=== PATIENT | male | born 1985 | race Caucasian/White ===

== ENCOUNTER → 2022-09-14 06:32 | Outpatient (CLI) | payer BC, OTHER, SELFPAY ==
--- NOTE | 2022-09-14 06:36 | DI.US.S_ITS ---
PROCEDURE: US ABDOMEN LIMITED INDICATIONS: ABNORMAL LIVER FUNCTION TESTS;POLYP OF GALLBLADDER TECHNIQUE: Real-time scanning was performed of the abdominal and retroperitoneal organs, with image documentation. COMPARISON: 02/06/2021. FINDINGS: Liver: Liver is normal in size and homogeneous in echotexture. Gallbladder: 6 x 8 x 4 mm polyp is noted within non dependent portion of gallbladder lumen. There is no gallbladder wall thickening or pericholecystic fluid. No sonographic Simon sign. Biliary ducts: Intrahepatic bile ducts are non-dilated. Extrahepatic bile duct caliber measures 6.0 mm. Normal is 6-7 mm or less in diameter, or 10 mm or less post-cholecystectomy. Pancreas: Visualized portions of the pancreas are sonographically normal. Miscellaneous: No free abdominal fluid. IMPRESSION: Subcentimeter polyp seen in non dependent portion of gallbladder wall unchanged from previous study. No sonographic evidence of acute cholecystitis. No biliary ductal dilatation. Normal appearing liver and spleen. Dictated by: Yobany Maloney M.D. on 09/14/2022 at 8:24 Approved by: Yobany Maloney M.D. on 09/14/2022 at 8:25
== END ==
PROVIDERS: Referring Provider Physician Assistant; Visit Provider Physician Assistant
DX: R79.89 Other specified abnormal findings of blood chemistry (principal); K82.4 Cholesterolosis of gallbladder
CPT/HCPCS: 76705

== ENCOUNTER → 2023-01-13 13:05 | Outpatient (CLI) | payer OTHER, MEDICAID, SELFPAY ==
--- NOTE | 2023-01-13 | DI.RAD.S_ITS ---
PROCEDURE: XR THORACIC SPINE 3V INDICATIONS: MID BACK STRAIN TECHNIQUE: 3 views of the thoracic spine were acquired. COMPARISON: None. FINDINGS: Bones: No fractures or dislocations. No suspicious bony lesions. 12 pairs of ribs are noted, and appear intact where visualized. There is mild intervertebral disc space narrowing and osteophytosis throughout the thoracic spine. Soft tissues: No paravertebral stripe thickening. IMPRESSION: No acute radiographic findings. Mild degenerative change. Dictated by: Elenita Wheat M.D. on 01/13/2023 at 16:46 Approved by: Elenita Wheat M.D. on 01/13/2023 at 16:46
--- NOTE | 2023-01-13 13:09 | DI.RAD.S_ITS ---
PROCEDURE: XR LUMBAR SPINE 2-3V INDICATIONS: STRAIN OF LUMBAR REGION TECHNIQUE: 3 views of the lumbar spine were acquired. COMPARISON: None. FINDINGS: Bones: 5 [id number] vertebrae are present. There is normal bony alignment. No vertebral body compression fractures. No suspicious bony lesions. Mild degenerative changes are present at L5-S1 including intervertebral disc space narrowing and endplate sclerosis. Soft tissues: Overlying bowel gas pattern is normal. No suspicious soft tissue calcifications. IMPRESSION: Mild degenerative change. No compression deformities. Dictated by: Elenita Wheat M.D. on 01/13/2023 at 16:46 Approved by: Elenita Wheat M.D. on 01/13/2023 at 16:47
== END ==
PROVIDERS: Referring Provider Registered Nurse; Visit Provider Registered Nurse
DX: S39.012A Strain of muscle, fascia and tendon of lower back, initial encounter (principal); M47.814 Spondylosis without myelopathy or radiculopathy, thoracic region; M47.816 Spondylosis without myelopathy or radiculopathy, lumbar region; X58.XXXA Exposure to other specified factors, initial encounter
CPT/HCPCS: 72072; 72100

== ENCOUNTER 2024-04-02 17:48 | Emergency (ER) | payer OTHER, SELFPAY ==
[2024-04-02 17:53] VITALS: BP 155/101; PULSE 99; RESP 16; TEMP 36.8; O2SAT 97; BMI 31.4
--- NOTE | 2024-04-02 17:56 | DI.RAD.S_ITS ---
PROCEDURE: XR HAND RT MIN 3V INDICATIONS: smashed hand with wrench, swelling, pain TECHNIQUE: 3 views of the hand(s) acquired. COMPARISON: None. FINDINGS: Bones: No fractures or dislocations. Carpal bones are normally aligned. No suspicious bony lesions. Soft tissues: No suspicious soft tissue calcifications. IMPRESSION: No visualized acute fracture or dislocation. However, if clinical concern and/or pain persist, short interval imaging followup in 7-10 days is recommended, as occult injury cannot be definitively excluded. Dictated by: Marielena Florez M.D. on 04/02/2024 at 18:41 Approved by: Marielena Florez M.D. on 04/02/2024 at 18:41
--- NOTE | 2024-04-02 18:33 | ED.UPPEXIN ---
HPI - Extremity Injury (Upper) <Audelia Orellana PA-C - Last Filed: 04/02/24 19:03> General Chief Complaint: Extremity Injury, Upper Stated Complaint: Right hand Injury Time Seen by Provider: 04/02/24 18:01 Source: patient Mode of arrival: Ambulatory History of Present Illness HPI narrative: 38-year-old male presents to the ED status post a right hand injury sustained at work earlier today. Patient states that he was working with a wrench, trying to loosen a bolt when the wrench slipped out of his hand and hit his right hand. Patient complains of pain, swelling on the dorsal aspect of the right hand. Patient states he is ambidextrous. Tetanus is up-to-date. Related Data Allergies Allergy/AdvReac Type Severity Reaction Status Date / Time PENICILLIN AdvReac Unknown Hives Uncoded 04/02/24 17:53 Review of Systems <Audelia Orellana PA-C - Last Filed: 04/02/24 19:03> Constitutional Constitutional: Denies chills, Denies fatigue, Denies fever(s), Denies frequent falls, Denies lethargy and Denies weakness Eyes Eyes: Denies change in vision, Denies eye discharge, Denies irritation and Denies loss of vision ENT Ears, Nose, Mouth, and Throat: Denies change in voice, Denies dizziness, Denies neck pain, Denies sore throat and Denies throat swelling Cardiovascular Cardiovascular: Denies chest pain, Denies irregular heart rhythm, Denies lightheadedness, Denies palpitations, Denies dyspnea, Denies dyspnea on exertion and Denies orthopnea Respiratory Respiratory: Denies cough, Denies dyspnea, Denies dyspnea on exertion and Denies wheezing Gastrointestinal Gastrointestinal: Denies abdominal pain, Denies change in bowel habits, Denies diarrhea, Denies nausea and Denies vomiting Musculoskeletal Musculoskeletal: Denies neck pain and Denies numbness Comments: Right hand injury, pain, swelling Integumentary/Breasts Skin/Breast: Denies pruritus, Denies erythema, Denies rash and Denies wounds Neurologic Neurologic: Denies behavioral changes, Denies confusion, Denies dizziness, Denies frequent falls, Denies loss of vision, Denies numbness and Denies weakness Psychiatric Psychiatric: Denies anxiety, Denies behavioral changes, Denies confusion, Denies depression, Denies homicidal ideation and Denies suicidal ideation Endocrine Endocrine: Denies fatigue, Denies flushing and Denies palpitations Hematologic/Lymphatic Hematologic/Lymphatic: Denies easy bruising Allergic/Immunologic Allergic/Immunologic: Denies urticaria, Denies throat swelling and Denies wheezing Patient History <Audelia Orellana PA-C - Last Filed: 04/02/24 19:03> Social History Smoking Status: Never smoker Smoking Status: Never smoker Substance Use Type: does not use Exam <Audelia Orellana PA-C - Last Filed: 04/02/24 19:03> Narrative Exam Narrative: Const General:?cooperative, healthy appearing and comfortable HENMT Head:?normal to inspection Ears:?hearing grossly normal bilaterally Nose:?external nose normal Face and sinus:?normal facial exam and sinuses nontender Mouth:?oral mucosae normal Throat:?posterior oropharynx normal Eyes General:?appearance normal, both eyes and all related structures Neck Neck:?normal visual inspection and no lymphadenopathy noted Resp Effort & Inspection:?normal respiratory effort Auscultation:?clear to auscultation bilaterally Cardio Rate:?regular rate Rhythm:?regular rhythm Musculoskeletal Dorsal aspect of right hand has a small abrasion, swelling and tenderness to touch. There is full range of motion. Range of motion is limited by pain. Neurovascularly intact. Neuro General:?patient alert, patient awake and patient oriented x3 Initial Vital Signs Initial Vital Signs: Vital Signs Temperature 98.2 F 04/02/24 17:53 Pulse Rate 99 H 04/02/24 17:53 Respiratory Rate 16 04/02/24 17:53 Blood Pressure 155/101 H 04/02/24 17:53 Pulse Oximetry 97 04/02/24 17:53 Oxygen Delivery Method Room Air 04/02/24 17:53 <Fidelina Fitzpatrick MD - Last Filed: 04/03/24 16:09> Initial Vital Signs Initial Vital Signs: Vital Signs Temperature 98.2 F 04/02/24 17:53 Pulse Rate 99 H 04/02/24 17:53 Respiratory Rate 16 04/02/24 17:53 Blood Pressure 155/101 H 04/02/24 17:53 Pulse Oximetry 97 04/02/24 17:53 Oxygen Delivery Method Room Air 04/02/24 17:53 Course <Audelia Orellana PA-C - Last Filed: 04/02/24 19:03> Orders Ordered: ED Orders 04/02/24 17:56 XR hand RT min 3V Stat Vital Signs Vital signs: Vital Signs - 8 hr 04/02/24 17:53 Temperature 98.2 F Pulse Rate 99 H Respiratory Rate 16 Blood Pressure 155/101 H Pulse Oximetry 97 Oxygen Delivery Method Room Air <Fidelina Fitzpatrick MD - Last Filed: 04/03/24 16:09> Orders Ordered: ED Orders 04/02/24 17:56 XR hand RT min 3V Stat Vital Signs Vital signs: Vital Signs - 8 hr 04/02/24 17:53 Temperature 98.2 F Pulse Rate 99 H Respiratory Rate 16 Blood Pressure 155/101 H Pulse Oximetry 97 Oxygen Delivery Method Room Air MDM - Extremity Injury (Upper) <Audelia Orellana PA-C - Last Filed: 04/02/24 19:03> MDM Narrative Medical decision making narrative: 38-year-old male presents to the ED status post a right hand injury sustained at work earlier today. Concern for fracture/dislocation versus musculoskeletal sprain/strain versus other. Patient already took 800 mg of ibuprofen prior to coming into the ED. will obtain x-rays. Will reassess. X-rays without acute findings. Patient's symptoms likely due to a contusion/musculoskeletal sprain/strain. Recommend ibuprofen, Tylenol, Feliciano wrap. Recommend follow-up with PCP. ED return precautions discussed with patient. Patient verbalized understanding. Medical records reviewed: Yes Discharge Plan Departure Patient Disposition: Home Clinical Impression: Hand injury Qualifiers: Encounter type: initial encounter Laterality: right Qualified Code(s): S69.91XA - Unspecified injury of right wrist, hand and finger(s), initial encounter Instructions: DI for Hand Injury Activity Restrictions/Additional Instructions: You were evaluated in the ED today for a hand injury. Your x-ray did not show any fractures or dislocations. Your symptoms are likely due to a contusion or musculoskeletal sprain/strain from the injury. You may continue to take 800 mg of ibuprofen and 1000 mg of Tylenol every 8 hours for pain. You may also use an Feliciano wrap to bind the hand for comfort. Please follow-up with your PCP as soon as possible. Return to the ED if you have worsening symptoms, numbness, tingling, weakness. Stand Alone Forms: Patient Portal/API ED Sign-out <Fidelina Fitzpatrick MD - Last Filed: 04/03/24 16:09> Cosign ED Attending Cosignature Attestation: I was immediately available in the department for consultation throughout this patient's visit. Fidelina Fitzpatrick MD
[2024-04-02 19:14] VITALS: BP 154/98; PULSE 95; RESP 16; O2SAT 98
== END 2024-04-02 19:11 | disposition home or self-care (01) ==
PROVIDERS: Emergency Provider Student in an Organized Health Care Education/Training Program
DX: S60.511A Abrasion of right hand, initial encounter (principal); W20.8XXA Other cause of strike by thrown, projected or falling object, initial encounter; Y99.0 Civilian activity done for income or pay
CPT/HCPCS: 73130; 99281; 99282

== ENCOUNTER → 2024-11-26 15:28 | Outpatient (CLI) | payer OTHER, SELFPAY ==
--- NOTE | 2024-11-26 15:32 | DI.RAD.S_ITS ---
PROCEDURE: XR ANKLE LT MIN 3V INDICATIONS: ANKLE PAIN TECHNIQUE: 3 views of the ankle were acquired. COMPARISON: None. FINDINGS: Bones: There are no osseous abnormalities. Tibiotalar and talocalcaneal joints: Normal in width and alignment without arthritic change. Soft tissues: No soft tissue swelling, calcification or mass. IMPRESSION: Normal ankle Dictated by: Kevin Terrell M.D. on 11/27/2024 at 9:37 Approved by: Kevin Terrell M.D. on 11/27/2024 at 9:37
--- NOTE | 2024-11-26 15:32 | DI.RAD.S_ITS ---
PROCEDURE: XR ANKLE RT MIN 3V INDICATIONS: ANKLE PAIN TECHNIQUE: 3 views of the right ankle were acquired. COMPARISON: None. FINDINGS: Bones: No fractures or dislocations. Ankle mortise is normally aligned. No suspicious bony lesions. Soft tissues: No tibiotalar joint effusion. Achilles tendon appears normal. IMPRESSION: No acute bony abnormality or significant effusion. Dictated by: Ovi Mi M.D. on 12/21/2024 at 8:23 Approved by: Ovi Mi M.D. on 12/21/2024 at 8:24
== END ==
PROVIDERS: Referring Provider Nurse Practitioner Family; Visit Provider Nurse Practitioner Family
DX: M25.571 Pain in right ankle and joints of right foot (principal); M25.572 Pain in left ankle and joints of left foot; M76.60 Achilles tendinitis, unspecified leg
CPT/HCPCS: 73610

== ENCOUNTER 2025-03-30 12:12 | Emergency (ER) | payer OTHER, SELFPAY ==
[2025-03-30 12:18] VITALS: BP 147/85; PULSE 91; RESP 18; TEMP 36.3; O2SAT 97; BMI 34.2
--- NOTE | 2025-03-30 12:29 | ED_ITS ---
HPI - Back Pain/Injury General Chief Complaint: Back Pain/Injury Stated Complaint: Severe Back Pain Time Seen by Provider: 03/30/25 12:29 Source: patient, RN notes reviewed and old records reviewed Mode of arrival: Ambulatory Limitations: no limitations History of Present Illness HPI Narrative: 39 year old male presents with a complaint of right low back pain x3 days. Patient states fairly abrupt onset. Does not recall any inciting factors has had a kidney stone remotely in the past but states it does seem like it is different. Patient states movement seems to make it worse but he also can not find a position of comfort. Patient notes it seems to be localized more to the right flank lower back. Does not come around to the front. He denies any fevers. He was had nausea but no vomiting. States normal bowel movements, no dysuria, urgency, frequency or hematuria. Patient denies any rash or skin changes. He was tried ibuprofen and Tylenol at home without any improvement. States home medications are sertraline and clonazepam. States allergy to penicillin. Former smoker, denies any regular alcohol or recreational drugs. Related Data Previous Rx's Medication Instructions Recorded diazepam 10 mg tablet (Valium) 10 mg PO TID PRN muscle spasm #10 03/30/25 tabs oxycodone 5 mg tablet 5 mg PO Q6H PRN pain #14 tabs 03/30/25 Allergies Allergy/AdvReac Type Severity Reaction Status Date / Time Penicillins AdvReac Hives Verified 03/30/25 12:18 Review of Systems Review of Systems ROS Unobtainable: All systems reviewed & are unremarkable except as noted in HPI and below Patient History Social History Smoking Status: Former smoker Smoking Status: Former smoker Exam Narrative Exam Narrative: GENERAL: Alert and oriented x three, male in moderate distress. HEENT: Head normocephalic, atraumatic, EOMI, pupils reactive, face symmetric, moist mucous membranes NECK: Supple, full range of motion CARDIOVASCULAR: Regular rate and rhythm without murmurs, rubs or gallops. RESPIRATORY: Breath sounds equal bilaterally, no wheezes rales or rhonchi. ABDOMEN: Soft, nontender. Normoactive bowel sounds all 4 quadrants. No guarding or rebound, rigidity, no mass : No CVA tenderness BACK: No cervical, thoracic or lumbar vertebral point tenderness. Patient does has a little bit of right lower lumbar muscle tightness. Patient has mildly decreased range of motion. Patient's gait is [antalgic/normal]. Muscle strength is 5/5 in lower extremities, DTRs are 2/4 and lower extremities. Dorsalis pedis and tibialis pulses are 2+ and lower extremities. Sensation is intact in the lower extremities. EXTREMITIES: Normal range of motion, no clubbing or edema. Neurovascularly intact NEUROLOGICAL: Cranial nerves II through XII grossly intact. Moving all extremities SKIN: Warm, dry, no petechiae, no rashes or lesions. Initial Vital Signs Initial Vital Signs: Vital Signs Temperature 97.3 F L 03/30/25 12:18 Pulse Rate 91 H 03/30/25 12:18 Respiratory Rate 18 03/30/25 12:18 Blood Pressure 147/85 H 03/30/25 12:18 Pulse Oximetry 97 03/30/25 12:18 Oxygen Delivery Method Room Air 03/30/25 12:18 Course Orders Ordered: ED Orders 03/30/25 12:29 CBC Auto Diff [Complete Blood Count AUTO DIFF] Stat CMP [Comprehensive Metabolic Panel] Stat Lipase Stat 03/30/25 12:39 CT kidney ureter bladder (KUB) Stat 03/30/25 14:53 Urine Microscopic Stat Discontinued Medications Diazepam (Diazepam 5 Mg Tablet) 10 mg PO NOW ONE Stop: 03/30/25 13:34 Last Admin: 03/30/25 13:37 Dose: 10 mg Documented By: MICHELLE Hydromorphone HCl (Hydromorphone 0.5 Mg Inj) 0.5 mg IV NOW ONE Stop: 03/30/25 14:05 Last Admin: 03/30/25 14:09 Dose: 0.5 mg Documented By: JEFF Sodium Chloride (Normal Saline 0.9%) 1,000 mls @ 1,000 mls/hr IV BOLUS ONE Stop: 03/30/25 14:10 Last Infusion: 03/30/25 14:23 Dose: Infused Documented By: Admin: 03/30/25 13:21 Dose: 1,000 mls/hr Documented By: MICHELLE Ketorolac Tromethamine (Ketorolac 30 Mg/Ml Vial) 15 mg IV NOW ONE Stop: 03/30/25 12:40 Last Admin: 03/30/25 12:44 Dose: 15 mg Documented By: JEFF Morphine Sulfate (Morphine 4 Mg/Ml Inj) 4 mg IV NOW ONE Stop: 03/30/25 13:12 Last Admin: 03/30/25 13:17 Dose: 4 mg Documented By: CARMINE Ondansetron HCl (Ondansetron 4 Mg/2 Ml Inj) 4 mg IV NOW ONE Stop: 03/30/25 13:12 Last Admin: 03/30/25 13:17 Dose: 4 mg Documented By: CARMINE Oxycodone HCl (Oxycodone Ir 5 Mg Tablet) 10 mg PO NOW ONE Stop: 03/30/25 14:48 Last Admin: 03/30/25 14:59 Dose: 10 mg Vital Signs Vital signs: Vital Signs - 8 hr 03/30/25 12:18 03/30/25 13:39 03/30/25 13:39 Temperature 97.3 F L Pulse Rate 91 H 91 H 97 H Respiratory Rate 18 16 Blood Pressure 147/85 H Pulse Oximetry 97 96 95 Oxygen Delivery Method Room Air Room Air 03/30/25 14:00 03/30/25 14:09 03/30/25 14:09 Temperature Pulse Rate 82 77 Respiratory Rate Blood Pressure 132/92 H Pulse Oximetry 95 95 Oxygen Delivery Method 03/30/25 14:30 03/30/25 15:26 Temperature 98.3 F Pulse Rate 85 79 Respiratory Rate 20 Blood Pressure 134/97 H Pulse Oximetry 93 100 Oxygen Delivery Method Room Air MDM - Back Pain/Injury Lab Data 03/30/25 12:29 03/30/25 12:29 Labs: Lab Results 03/30/25 03/30/25 Range/Units 12:29 14:53 WBC 5.7 (4.5-11.0) X10^3/uL RBC 5.33 (4.5-5.9) X10^6/uL Hgb 16.2 (13.5-17.5) g/dL Hct 46.7 (41-53) % MCV 87.6 (80-100) fL MCH 30.3 (26-34) PG MCHC 34.6 (30-36) % RDW 14.1 (11.6-14.8) % Plt Count 170 (150-400) X10^3/uL Neut % (Auto) 60.1 (50-75) % Lymph % (Auto) 26.2 (25-40) % [place] % (Auto) 10.5 (3-14) % Eos % (Auto) 2.5 (2-4) % Baso % (Auto) 0.7 (0-2) % Neut # (Auto) 3400 (3592-0470) /uL Lymph # (Auto) 1500 (0583-4941) /uL R[place]els # (Auto) 600 (0-900) /uL Eos # (Auto) 100 (0-450) /uL Baso # (Auto) 0 (0-100) /uL Sodium 141 (137-145) mmol/L Potassium 4.3 (3.4-5.1) mmol/L Chloride 107 (98-107) mmol/L Carbon Dioxide 22 (22-32) mmol/L BUN 30 H (9-20) mg/dL Creatinine 1.27 H (0.66-1.25) mg/dL Estimated GFR > 60 (>60) mL/min BUN/Creatinine Ratio 23.6 H (6-22) Glucose 116 H (70-99) mg/dL Calcium 9.3 (8.4-10.2) mg/dL Total Bilirubin 0.5 (0.2-1.3) mg/dL AST 45 (17-59) IU/L ALT 42 (<50) IU/L Alkaline Phosphatase 70 (38-126) U/L Total Protein 7.4 (6.3-8.2) g/dL Albumin 4.6 (3.5-5.0) g/dL Globulin 2.8 (1.7-4.1) g/dL Albumin/Globulin Ratio 1.6 (1.0-2.8) Lipase 63 (23-300) U/L Urine RBC None seen (0-5/HPF) Urine WBC None seen (0-5/HPF) Ur Squamous Epith Cells None seen (0-5/HPF) Urine Bacteria None seen (None) Ur Culture Indicated? Cult not indicated Vol Urine Centrifuged 10ml (spun) Urine Dip Bedside Urine Glucose Negative Bedside Urine Bilirubin - Negative Bedside Urine Ketone - Negative Urine Specific [place] 1.015 Bedside Urine Occult Blood - Negative Bedside Urine pH 6.0 Bedside Urine Protein +/- 15 Bedside Urine Urobilinogen - Negative Bedside Urine Nitrite - Negative Bedside Urine Leukocytes - Negative Esterase MDM Narrative Medical decision making narrative: 39-year-old male with right flank pain history seems consistent with kidney stone versus a low back pain. Patient has had kidney stones in the past although he states a very long time ago and states it does feel different. He has some very mild increased pain on exam but it was not very reproducible he appears quite uncomfortable. He notes fairly abrupt onset but does note some discomfort with movement. Labs show normal CBC, chemistries show creatinine 1.27 BUN 30 electrolytes are otherwise appropriate glucose is 116 LFTs are all negative. Point of care urine is negative. urine microscopy is negative. CT KUB shows layering gallstones within the gallbladder no additional findings of cholecystitis. Resume appendectomy clips seen. Moderate periumbilical hernia seen containing fat. Bilateral fat containing inguinal hernias seen left larger than right. Focal L5-S1 degenerative change. No obstructing stones or hydronephrosis. Patient received Toradol. As well as muscle relaxer and narcotic pain medication. Still uncomfortable but appears more relaxed. Patient was has a minimal improvement with Toradol, will give some additional pain and nausea medication. Reviewed findings with patient. Patient was able to ambulate to the bathroom for urine sample. He was still uncomfortable but somewhat improved. Discussed return precautions all questions answered. Discharge Plan Departure Patient Disposition: Home Clinical Impression: Low back pain Instructions: DI for Low Back Pain Activity Restrictions/Additional Instructions: Follow up for recheck. Call to set up follow up with primary care on Tuesday. Your imaging today does show some gallstones, there are fat containing periumbilical hernia as well as bilateral fat containing inguinal hernias but no bowel in any of these hernias. There is focal L5-S1 degenerative changes in your back. Continue with acetaminophen up to a 1000 mg every 6 hours as needed for pain, we can also take ibuprofen 600 mg every 6 hours. You can take muscle relaxer 1 tablet every 6 hours as needed. If inadequate for pain you can take narcotic pain medication, 1-2 tablets every 6 hours as needed. This medication can make you sleepy do not drive, perform hazardous activities or make any major decisions while taking it. This medication will make you constipated please take a stool softener once to twice daily until stools are soft and regular. Prescription sent to [facility] in [place]. Please return for fevers, rapidly worsening symptoms, any loss of bowel or bladder control, new weakness, numbness or loss of sensation, persistent vomiting, lightheadedness or passing out or other new or concerning changes. Prescriptions: New oxycodone 5 mg tablet 5 mg PO Q6H PRN (Reason: pain) Qty: 14 0RF diazepam [Valium] 10 mg tablet 10 mg PO TID PRN (Reason: muscle spasm) Qty: 10 0RF Referrals: Lion Garcia DO [Physician] - Stand Alone Forms: Patient Portal/API/Survey
--- NOTE | 2025-03-30 12:39 | DI.CT.S_ITS ---
PROCEDURE: CT KIDNEY URETER BLADDER (KUB) INDICATIONS: R flank pain x 3 days TECHNIQUE: Axial sections were acquired from the lung bases to the pubic symphysis. Coronal and sagittal reformats were performed. For radiation dose reduction, the following was used: automated exposure control, adjustment of mA and/or kV according to patient size. COMPARISON: [facility], US, US ABDOMEN LIMITED, 09/14/2022, 7:07. [facility], US, US ABDOMEN COMPLETE, 02/06/2021, 8:45. FINDINGS: Image quality: Diagnostic. Lower Chest: No significant findings. URINARY: Right Kidney: No stones or hydronephrosis. Right Ureter: No hydroureter. Left Kidney: No stones or hydronephrosis. Left Ureter: No hydroureter. Bladder: Normal wall thickness. No stones. ABDOMEN: Liver: No contour-deforming solid mass. Gallbladder: Layering gallstones are seen within the gallbladder. No additional CT findings of cholecystitis are seen. Biliary ducts: No biliary dilation. Pancreas: No ductal dilation. Spleen: Size is within normal limits. Adrenal Glands: No adrenal nodules. Stomach and Bowel: Normal colonic caliber, without significant wall thickening. Colonic diverticulosis is seen, without findings of active diverticulitis. Presumed appendectomy clips are seen. Peritoneum: No abnormal intraperitoneal fluid. No free air. Ventral Wall: A moderate periumbilical hernia is seen, containing fat. Abdominal Nodes: No enlarged retroperitoneal or mesenteric lymph nodes. Vessels: Aorta and inferior vena cava are normal in size. PELVIS: Pelvic Organs: Unremarkable. Pelvic Nodes: Unremarkable. Miscellaneous: Bilateral fat containing inguinal hernias are seen, left larger than right. Bones: There is focal L5-S1 degenerative change. IMPRESSION: No imaging explanation is found for this patient's presenting symptoms. No obstructing stones or hydronephrosis. Additional findings: Layering gallstones Moderate fat containing periumbilical hernia Presumed appendectomy clips Diverticulosis, without active diverticulitis Focal L5-S1 degenerative change Bilateral fat containing inguinal hernias Dictated by: Nicola Skinner M.D. on 03/30/2025 at 11:52 Approved by: Nicola Skinner M.D. on 03/30/2025 at 11:57
[2025-03-30] MEDS: KETOROLAC 30 MG/ML VIAL 15 MG IV (12:44)
[2025-03-30 12:45] LABS: Add Manual Diff / Slide Review NO; Basophils Absolute Auto 0 /uL (0-100); Basophils Percent Auto 0.7 % (0-2); Eosinophils Absolute Auto 100 /uL (0-450); Eosinophils Percent Auto 2.5 % (2-4); Hematocrit 46.7 % (41-53); Hemoglobin 16.2 g/dL (13.5-17.5); Lymphocytes Absolute Auto 1500 /uL (1100-4500); Lymphocytes Percent Auto 26.2 % (25-40); Mean Corpuscular HGB Conc 34.6 % (30-36); Mean Corpuscular Hemoglobin 30.3 PG (26-34); Mean Corpuscular Volume 87.6 fL (80-100); Monocytes Absolute Auto 600 /uL (0-900); Monocytes Percent Auto 10.5 % (3-14); Neutrophils Absolute Auto 3400 /uL (1500-7000); Neutrophils Percent Auto 60.1 % (50-75); Platelet Count 170 X10^3/uL (150-400); Red Blood Cell Count 5.33 X10^6/uL (4.5-5.9); Red Cell Distribution Width 14.1 % (11.6-14.8); White Blood Cell Count 5.7 X10^3/uL (4.5-11.0)
[2025-03-30 12:59] LABS: Alanine Aminotransferase 42 IU/L (<50); Albumin 4.6 g/dL (3.5-5.0); Albumin Globulin Ratio 1.6 (1.0-2.8); Alkaline Phosphatase 70 U/L (38-126); Aspartate Aminotransferase 45 IU/L (17-59); BUN Creatinine Ratio 23.6 (6-22); Bilirubin Total 0.5 mg/dL (0.2-1.3); Blood Urea Nitrogen 30 mg/dL (9-20); Calcium 9.3 mg/dL (8.4-10.2); Carbon Dioxide 22 mmol/L (22-32); Chloride 107 mmol/L (98-107); Estimated Glomerular Filt Rate > 60 mL/min (>60); Globulin 2.8 g/dL (1.7-4.1); Glucose 116 mg/dL (70-99); HEMOLYSIS 16 (0-50); Lipase 63 U/L (23-300); Potassium 4.3 mmol/L (3.4-5.1); Sodium 141 mmol/L (137-145); Total Protein 7.4 g/dL (6.3-8.2)
[2025-03-30] MEDS: MORPHINE 4 MG/ML INJ IV (13:17)
[2025-03-30] MEDS: ONDANSETRON 4 MG/2 ML INJ IV (13:17)
[2025-03-30] MEDS: SODIUM CHLORIDE 0.9% 1,000 ML 1000 ML IV (13:21)
[2025-03-30] MEDS: diazePAM 5 MG TABLET 10 MG PO (13:37)
[2025-03-30 13:39] VITALS: PULSE 91; PULSE 97; RESP 16; O2SAT 95; O2SAT 96
[2025-03-30 14:00] VITALS: PULSE 82; O2SAT 95
[2025-03-30 14:09] VITALS: BP 132/92; PULSE 77; O2SAT 95
[2025-03-30] MEDS: HYDROMORPHONE 0.5 MG INJ IV (14:09)
[2025-03-30 14:30] VITALS: PULSE 85; O2SAT 93
[2025-03-30] MEDS: OXYCODONE IR 5 MG TABLET 10 MG PO (14:59)
[2025-03-30 15:18] LABS: Bacteria Urine None Seen; RBC Urine None Seen (0-5/HPF); Squamous Epithelial Cell Urine None Seen (0-5/HPF); Urine Volume 10mL (spun); WBC Urine None Seen (0-5/HPF)
[2025-03-30 15:19] LABS: Culture Indicated Urine Cult Not Indicated
[2025-03-30 15:26] VITALS: BP 134/97; PULSE 79; RESP 20; TEMP 36.8; O2SAT 100
== END 2025-03-30 15:27 | disposition home or self-care (01) ==
PROVIDERS: Emergency Provider Emergency Medicine
DX: M54.50 Low back pain, unspecified (principal); R11.0 Nausea
CPT/HCPCS: 74176; 80053; 81003; 81015; 83690; 85025; 96361; 96374; 96375; 99284; J1171; J1885; J2270; J2405

== ENCOUNTER 2025-04-07 22:21 | Emergency (ER) | payer OTHER, SELFPAY ==
[2025-04-07 22:28] VITALS: BP 153/96; PULSE 78; RESP 20; TEMP 36.7; O2SAT 96; BMI 34.4
[2025-04-08] VITALS (14 sets, daily range): BP systolic 110–153; BP diastolic 68–127; PULSE 49–91; RESP 8–11; O2SAT 87–98
--- NOTE | 2025-04-08 00:28 | ED.BACK ---
HPI - Back Pain/Injury General Chief Complaint: Back Pain/Injury Stated Complaint: lower back pain Time Seen by Provider: 04/07/25 23:47 Source: patient History of Present Illness HPI Narrative: 39-year-old gentleman seen on 03/30/2025 for low back pain on the right side that radiates down the right leg unrelieved with oxycodone and Valium that was prescribed here for which he also went on to see his family doctor who also prescribed pain medicine but he ran out and still in his significant pain. 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 Nothing makes it better movement makes it worse as he can and can not get comfortable in any position but denies bowel or bladder incontinence or gait instability. Other than what is stated 14 point review of system is negative. Related Data Previous Rx's Medication Instructions Recorded methocarbamol 500 mg tablet 500 mg PO TID #30 tabs 04/08/25 methylprednisolone 4 mg tablets in See Rx Instructions PO .COMPLEX 04/08/25 a dose pack (Medrol (Fazal)) #21 ea Allergies Allergy/AdvReac Type Severity Reaction Status Date / Time Penicillins AdvReac Hives Verified 04/08/25 00:28 Review of Systems Review of Systems ROS Unobtainable: All systems reviewed & are unremarkable except as noted in HPI and below Patient History Smoking Status: Never smoker Exam Narrative Exam Narrative: GENERAL: [39] year old patient appears stated age. Well-developed patient, in mild distress. HEAD: Atraumatic. Normocephalic. EYES: Pupils equal round and reactive. Extraocular motions intact. No scleral icterus. No injection or drainage. ENT: Nose without bleeding, purulent drainage. Throat without erythema, tonsillar hypertrophy or exudate. Airway patent. NECK: Trachea midline. Non tender CARDIOVASCULAR: Regular rate and rhythm without murmurs, gallops, or rubs. RESPIRATORY: Clear to auscultation. Breath sounds equal bilaterally. No wheezes, rales, or rhonchi. GASTROINTESTINAL: Abdomen soft, non-tender, nondistended. EXTREMITIES: No edema or joint tenderness. BACK: No deformity or crepitance. No flank tenderness. R paralumbosacral TTP of L 4, 5, S1 motor/sensory intact NEURO: AOx3. SKIN: No rash or erythema of visible areas Initial Vital Signs Initial Vital Signs: Vital Signs Temperature 98.0 F 04/07/25 22:28 Pulse Rate 78 04/07/25 22:28 Respiratory Rate 20 04/07/25 22:28 Blood Pressure 153/96 H 04/07/25 22:28 Pulse Oximetry 96 04/07/25 22:28 Oxygen Delivery Method Room Air 04/07/25 22:28 Course Vital Signs Vital signs: Vital Signs - 8 hr 04/07/25 22:28 04/08/25 00:02 04/08/25 00:04 Temperature 98.0 F Pulse Rate 78 78 81 Respiratory Rate 20 Blood Pressure 153/96 H Pulse Oximetry 96 98 93 Oxygen Delivery Method Room Air 04/08/25 00:04 Temperature Pulse Rate Respiratory Rate Blood Pressure 134/80 Pulse Oximetry Oxygen Delivery Method MDM - Back Pain/Injury MDM Narrative Medical decision making narrative: Vital signs nurse triage note medication list previous ER visits in all imaging modality reviewed. Patient given Dilaudid Toradol Benadryl droperidol. Trigger point injection L4-L5 S1 with Kenalog and lidocaine 2% lidocaine without epi. Patient tolerated procedure with no complication. Patient oxygen dropped to the 80s and came back up to the 90s and was monitored here for significant amount of time where he however is around 88-91% RA on and is easily arousable on verbal command. We will DC home on methocarbamol and prednisone as patient has follow up appointment with chronic pain management. Differential diagnosis includes herniated disc, sciatica piriformis syndrome, back spasm, spondylosis, spondylolisthesis Discharge Plan Departure Patient Disposition: Home Clinical Impression: Low back pain Instructions: DI for Low Back Pain Activity Restrictions/Additional Instructions: Return with new or worsening symptoms. Take your medicines as directed. Follow up with chronic pain management appointment. Prescriptions: New methocarbamol 500 mg tablet 500 mg PO TID Qty: 30 0RF methylprednisolone [Medrol (Fazal)] 4 mg tablets,dose pack See Rx Instructions .ROUTE .COMPLEX Qty: 21 0RF Rx Instructions: orally per package directions Stand Alone Forms: Patient Portal/API/Survey
[2025-04-08] MEDS: LIDOCAINE 2% INJ MDV 20ML 4 ML INJ (00:57)
[2025-04-08] MEDS: KETOROLAC 30 MG/ML VIAL IM (01:09)
[2025-04-08] MEDS: HYDROMORPHONE 1 MG INJ 2 MG IM (01:10)
[2025-04-08] MEDS: ONDANSETRON 4 MG/2 ML INJ IM (01:10)
[2025-04-08] MEDS: TRIAMCINOLONE 40 MG/ML VIAL INJ (01:40)
[2025-04-08] MEDS: methylPREDNISolone 125 MG/2 ML VIAL IV (01:59)
[2025-04-08] MEDS: diphenhydrAMINE 50 MG/ML VIAL IV (02:00)
[2025-04-08] MEDS: droPERidol 2.5 MG/ML VIAL IV (02:01)
== END 2025-04-08 04:48 | disposition home or self-care (01) ==
PROVIDERS: Emergency Provider Family Medicine
DX: M54.50 Low back pain, unspecified (principal)
CPT/HCPCS: 96372; 96374; 96375; 99284; J1171; J1200; J1790; J1885; J2405; J2919

== ENCOUNTER 2025-04-08 13:40 | Inpatient (IN) | payer OTHER, SELFPAY ==
[2025-04-08] VITALS (20 sets, daily range): BP systolic 132–174; BP diastolic 72–108; PULSE 68–107; RESP 12–20; TEMP 36.2–36.4; O2SAT 89–96; BMI 34.4
--- NOTE | 2025-04-08 14:04 | ED.BACK ---
HPI - Back Pain/Injury <Audelia Orellana PA-C - Last Filed: 04/08/25 18:57> General Chief Complaint: Back Pain/Injury Stated Complaint: back pain Time Seen by Provider: 04/08/25 13:49 History of Present Illness HPI Narrative: 39-year-old male with past medical history melanoma, disc issues in the lower back returns to the ED for worsening lower back pain. Patient localizes the pain the right side of the lower back, radiating down the back of his leg. No numbness, tingling, weakness. Patient has been seen for the same complaint on 03/30/2025, as well as in the early hours of this morning. Patient was given multiple rounds of pain medications prior to discharge earlier today. Patient states that his pain returned upon awakening from a nap, and came back to the ED. Denies chest pain, shortness of breath, fever, vomiting, urinary hesitancy, urinary urgency, dysuria, lightheadedness, dizziness, syncope, saddle paresthesias. Patient states he has an MRI scheduled in about 2 weeks which was ordered by his PCP. Related Data Previous Rx's Medication Instructions Recorded methocarbamol 500 mg tablet 500 mg PO TID #30 tabs 04/08/25 methylprednisolone 4 mg tablets in See Rx Instructions PO .COMPLEX 04/08/25 a dose pack (Medrol (Fazal)) #21 ea Allergies Allergy/AdvReac Type Severity Reaction Status Date / Time Penicillins AdvReac Hives Verified 04/08/25 00:28 Patient History <CLAU Stuart Last Filed: 04/08/25 18:57> Social History household members: significant other and children Smoking Status: Never smoker Smoking Status: Never smoker Exam <CLAU Stuart Last Filed: 04/08/25 18:57> Initial Vital Signs Initial Vital Signs: Vital Signs Temperature 97.6 F 04/08/25 13:43 Pulse Rate 100 H 04/08/25 13:43 Respiratory Rate 20 04/08/25 13:43 Blood Pressure 165/91 H 04/08/25 13:43 Pulse Oximetry 96 04/08/25 13:43 Oxygen Delivery Method Room Air 04/08/25 13:43 <Kevin Bustamante DO - Last Filed: 04/08/25 20:36> Initial Vital Signs Initial Vital Signs: Vital Signs Temperature 97.6 F 04/08/25 13:43 Pulse Rate 100 H 04/08/25 13:43 Respiratory Rate 20 04/08/25 13:43 Blood Pressure 165/91 H 04/08/25 13:43 Pulse Oximetry 96 04/08/25 13:43 Oxygen Delivery Method Room Air 04/08/25 13:43 Course <Audelia Orellana PA-C - Last Filed: 04/08/25 18:57> Orders Ordered: ED Orders 04/08/25 15:09 CT lumbar spine wo con Stat 04/08/25 15:52 Consult to MEDICAL OFFICE PROFESSIONAL INSTRUCTOR - After School Program Coordinator Stat 04/08/25 16:14 CT abdomen pelvis w con Stat 04/08/25 16:18 CBC Auto Diff [Complete Blood Count AUTO DIFF] Stat CMP [Comprehensive Metabolic Panel] Stat Lipase Stat PT [Prothrombin Time INR] Stat PTT [PTT Partial Thromboplastin Franky] Stat 04/08/25 16:20 Urine Drug Screen, Rapid Stat 04/08/25 18:05 US abdomen limited Stat Discontinued Medications Hydromorphone HCl (Hydromorphone 1 Mg Inj) 1 mg IV NOW ONE Stop: 04/08/25 14:41 Last Admin: 04/08/25 14:48 Dose: 1 mg Documented By: MICHELLE Hydromorphone HCl (Hydromorphone 1 Mg Inj) 1 mg IV NOW ONE Stop: 04/08/25 17:10 Last Admin: 04/08/25 17:16 Dose: 1 mg Documented By: MICHELLE Hydromorphone HCl (Hydromorphone 1 Mg Inj) 1 mg IV NOW ONE Stop: 04/08/25 20:04 Last Admin: 04/08/25 20:10 Dose: 1 mg Documented By: Oxycodone/Acetaminophen (Oxycodone/Acetaminophen 5/325 Tablet) 1 tab PO NOW ONE Stop: 04/08/25 14:15 Last Admin: 04/08/25 14:23 Dose: 1 tab Documented By: MICHELLE Vital Signs Vital signs: Vital Signs - 8 hr 04/08/25 13:43 04/08/25 15:00 04/08/25 15:20 Temperature 97.6 F Pulse Rate 100 H 107 H 98 H Respiratory Rate 20 18 18 Blood Pressure 165/91 H 168/86 H Pulse Oximetry 96 95 95 Oxygen Delivery Method Room Air Room Air Room Air 04/08/25 15:59 04/08/25 16:30 04/08/25 17:00 Temperature Pulse Rate 87 100 H 96 H Respiratory Rate 18 18 Blood Pressure 150/108 H 167/77 H Pulse Oximetry 91 94 95 Oxygen Delivery Method Room Air Room Air Room Air 04/08/25 17:23 04/08/25 17:25 04/08/25 17:47 Temperature Pulse Rate 101 H 94 H 93 H Respiratory Rate 18 18 18 Blood Pressure 174/88 H 146/84 H 157/76 H Pulse Oximetry 95 94 95 Oxygen Delivery Method Room Air Room Air Room Air <Kevin Bustamante, DO - Last Filed: 04/08/25 20:36> Orders Ordered: ED Orders 04/08/25 15:09 CT lumbar spine wo con Stat 04/08/25 15:52 Consult to MEDICAL OFFICE PROFESSIONAL INSTRUCTOR - After School Program Coordinator Stat 04/08/25 16:14 CT abdomen pelvis w con Stat 04/08/25 16:18 CBC Auto Diff [Complete Blood Count AUTO DIFF] Stat CMP [Comprehensive Metabolic Panel] Stat Lipase Stat PT [Prothrombin Time INR] Stat PTT [PTT Partial Thromboplastin Franky] Stat 04/08/25 16:20 Urine Drug Screen, Rapid Stat 04/08/25 18:05 US abdomen limited Stat Discontinued Medications Hydromorphone HCl (Hydromorphone 1 Mg Inj) 1 mg IV NOW ONE Stop: 04/08/25 14:41 Last Admin: 04/08/25 14:48 Dose: 1 mg Documented By: MICHELLE Hydromorphone HCl (Hydromorphone 1 Mg Inj) 1 mg IV NOW ONE Stop: 04/08/25 17:10 Last Admin: 04/08/25 17:16 Dose: 1 mg Documented By: MICHELLE Hydromorphone HCl (Hydromorphone 1 Mg Inj) 1 mg IV NOW ONE Stop: 04/08/25 20:04 Last Admin: 04/08/25 20:10 Dose: 1 mg Documented By: Oxycodone/Acetaminophen (Oxycodone/Acetaminophen 5/325 Tablet) 1 tab PO NOW ONE Stop: 04/08/25 14:15 Last Admin: 04/08/25 14:23 Dose: 1 tab Documented By: KB Vital Signs Vital signs: Vital Signs - 8 hr 04/08/25 13:43 04/08/25 15:00 04/08/25 15:20 Temperature 97.6 F Pulse Rate 100 H 107 H 98 H Respiratory Rate 20 18 18 Blood Pressure 165/91 H 168/86 H Pulse Oximetry 96 95 95 Oxygen Delivery Method Room Air Room Air Room Air 04/08/25 15:59 04/08/25 16:30 04/08/25 17:00 Temperature Pulse Rate 87 100 H 96 H Respiratory Rate 18 18 Blood Pressure 150/108 H 167/77 H Pulse Oximetry 91 94 95 Oxygen Delivery Method Room Air Room Air Room Air 04/08/25 17:23 04/08/25 17:25 04/08/25 17:47 Temperature Pulse Rate 101 H 94 H 93 H Respiratory Rate 18 18 18 Blood Pressure 174/88 H 146/84 H 157/76 H Pulse Oximetry 95 94 95 Oxygen Delivery Method Room Air Room Air Room Air MDM - Back Pain/Injury <Audelia Orellana PA-C - Last Filed: 04/08/25 18:57> Lab Data 04/08/25 16:18 04/08/25 16:18 Labs: Lab Results 04/08/25 04/08/25 Range/Units 16:18 16:20 WBC 10.0 (4.5-11.0) X10^3/uL RBC 5.64 (4.5-5.9) X10^6/uL Hgb 17.0 (13.5-17.5) g/dL Hct 49.9 (41-53) % MCV 88.5 (80-100) fL MCH 30.2 (26-34) PG MCHC 34.2 (30-36) % RDW 13.9 (11.6-14.8) % Plt Count 228 (150-400) X10^3/uL Neut % (Auto) 85.0 H (50-75) % Lymph % (Auto) 9.0 L (25-40) % Calvert % (Auto) 5.6 (3-14) % Eos % (Auto) 0.1 L (2-4) % Baso % (Auto) 0.3 (0-2) % Neut # (Auto) 8500 H (4985-7862) /uL Lymph # (Auto) 900 L (7388-7939) /uL [place]vert # (Auto) 600 (0-900) /uL Eos # (Auto) 0 (0-450) /uL Baso # (Auto) 0 (0-100) /uL PT 12.3 (9.4-12.5) SECONDS INR 1.1 (0.9-1.3) APTT 39 H (25.1-36.5) SECONDS Sodium 136 L (137-145) mmol/L Potassium 4.6 (3.4-5.1) mmol/L Chloride 103 (98-107) mmol/L Carbon Dioxide 22 (22-32) mmol/L BUN 27 H (9-20) mg/dL Creatinine 1.29 H (0.66-1.25) mg/dL Estimated GFR > 60 (>60) mL/min BUN/Creatinine Ratio 20.9 (6-22) Glucose 117 H (70-99) mg/dL Calcium 9.6 (8.4-10.2) mg/dL Total Bilirubin 0.6 (0.2-1.3) mg/dL AST 30 (17-59) IU/L ALT 33 (<50) IU/L Alkaline Phosphatase 67 (38-126) U/L Total Protein 8.2 (6.3-8.2) g/dL Albumin 5.0 (3.5-5.0) g/dL Globulin 3.2 (1.7-4.1) g/dL Albumin/Globulin Ratio 1.6 (1.0-2.8) Lipase 495 H D (23-300) U/L U Opiates 300ng/mL cut Negative (Negative) Ur Oxycodone Screen Positive H (Negative) Urine Methadone Screen Negative (Negative) Ur Barbiturates Screen Negative (Negative) U Tricyclic Antidepress Negative (Negative) Ur Phencyclidine Scrn Negative (Negative) Ur Amphetamines Screen Negative (Negative) U Methamphetamines Scrn Negative (Negative) Ur MDMA Scrn (Ecstasy) Negative (Negative) U Benzodiazepines Scrn Positive H (Negative) Urine Cocaine Screen Negative (Negative) U Marijuana (THC) Screen Negative (Negative) Urine pH Normal (Normal) Urine Specific [place] Normal (Normal) Ur Creatinine Normal (Normal) Urine Dip Bedside Urine Glucose Negative Bedside Urine Bilirubin - Negative Bedside Urine Ketone - Negative Urine Specific [place] 1.020 Bedside Urine Occult Blood - Negative Bedside Urine pH 6.0 Bedside Urine Protein - Negative Bedside Urine Urobilinogen - Negative Bedside Urine Nitrite - Negative Bedside Urine Leukocytes - Negative Esterase MDM Narrative Medical decision making narrative: 39-year-old male with past medical history melanoma, disc issues in the lower back returns to the ED for worsening lower back pain. Patient appears to be in significant pain. There is concern for disc herniation versus spinal stenosis versus intra-abdominal pathology versus epidural abscess versus other. Patient has an ankle bracelet for law enforcement reasons for tracking purposes, and therefore we are unable to obtain an MRI without removing it. According to patient, only law enforcement can remove it, and that they are unavailable due to the long weekend. Creatinine slightly elevated at 1.29, creatinine on 03/30/2025 was 1.27. Labs otherwise unremarkable. UA without UTI. Given patient's pain that is poorly controlled with Percocet and Dilaudid, will obtain CT abdomen pelvis to rule out intra-abdominal etiology. CT abdomen pelvis shows mildly prominent fluid-filled loops of small bowel which are nonspecific but could indicate a mild enteritis. CT also shows cholelithiasis. Will obtain ultrasound right upper quadrant to rule out biliary etiology. Social work was consulted, they are able to call law enforcement to remove the ankle bracelet for an MRI. Patient will not be able to obtain an MRI today, and there is no emergent indication for it. Given patient's intractable pain, will consider admission for pain control and MRI tomorrow. Patient is signed out to Dr. Bustamante at this time. Medical records reviewed: Yes <Kevin Bustamante, DO - Last Filed: 04/08/25 20:36> Lab Data Labs: Lab Results 04/08/25 04/08/25 Range/Units 16:18 16:20 WBC 10.0 (4.5-11.0) X10^3/uL RBC 5.64 (4.5-5.9) X10^6/uL Hgb 17.0 (13.5-17.5) g/dL Hct 49.9 (41-53) % MCV 88.5 (80-100) fL MCH 30.2 (26-34) PG MCHC 34.2 (30-36) % RDW 13.9 (11.6-14.8) % Plt Count 228 (150-400) X10^3/uL Neut % (Auto) 85.0 H (50-75) % Lymph % (Auto) 9.0 L (25-40) % Calvert % (Auto) 5.6 (3-14) % Eos % (Auto) 0.1 L (2-4) % Baso % (Auto) 0.3 (0-2) % Neut # (Auto) 8500 H (2798-1289) /uL Lymph # (Auto) 900 L (9643-3149) /uL Calvert # (Auto) 600 (0-900) /uL Eos # (Auto) 0 (0-450) /uL Baso # (Auto) 0 (0-100) /uL PT 12.3 (9.4-12.5) SECONDS INR 1.1 (0.9-1.3) APTT 39 H (25.1-36.5) SECONDS Sodium 136 L (137-145) mmol/L Potassium 4.6 (3.4-5.1) mmol/L Chloride 103 (98-107) mmol/L Carbon Dioxide 22 (22-32) mmol/L BUN 27 H (9-20) mg/dL Creatinine 1.29 H (0.66-1.25) mg/dL Estimated GFR > 60 (>60) mL/min BUN/Creatinine Ratio 20.9 (6-22) Glucose 117 H (70-99) mg/dL Calcium 9.6 (8.4-10.2) mg/dL Total Bilirubin 0.6 (0.2-1.3) mg/dL AST 30 (17-59) IU/L ALT 33 (<50) IU/L Alkaline Phosphatase 67 (38-126) U/L Total Protein 8.2 (6.3-8.2) g/dL Albumin 5.0 (3.5-5.0) g/dL Globulin 3.2 (1.7-4.1) g/dL Albumin/Globulin Ratio 1.6 (1.0-2.8) Lipase 495 H D (23-300) U/L U Opiates 300ng/mL cut Negative (Negative) Ur Oxycodone Screen Positive H (Negative) Urine Methadone Screen Negative (Negative) Ur Barbiturates Screen Negative (Negative) U Tricyclic Antidepress Negative (Negative) Ur Phencyclidine Scrn Negative (Negative) Ur Amphetamines Screen Negative (Negative) U Methamphetamines Scrn Negative (Negative) Ur MDMA Scrn (Ecstasy) Negative (Negative) U Benzodiazepines Scrn Positive H (Negative) Urine Cocaine Screen Negative (Negative) U Marijuana (THC) Screen Negative (Negative) Urine pH Normal (Normal) Urine Specific [place] Normal (Normal) Ur Creatinine Normal (Normal) Urine Dip Bedside Urine Glucose Negative Bedside Urine Bilirubin - Negative Bedside Urine Ketone - Negative Urine Specific [place] 1.020 Bedside Urine Occult Blood - Negative Bedside Urine pH 6.0 Bedside Urine Protein - Negative Bedside Urine Urobilinogen - Negative Bedside Urine Nitrite - Negative Bedside Urine Leukocytes - Negative Esterase Imaging Data US - abdomen: Radiologist's Impression: [address] [address] Ultrasound Report Signed Patient: Corey Bean MR#: [id number] : 1985 Acct:[id number] Age/Sex: 39 / M Date of Service: 04/08/25 Loc: ED Accession Number: [id number] Procedure: US abdomen limited Ordering Provider: Audelia Orellana PA-C PROCEDURE: US ABDOMEN LIMITED INDICATIONS: ?cholecystitis TECHNIQUE: Real-time focused scanning was performed of the abdomen, with image documentation. COMPARISON: [facility], US, US ABDOMEN LIMITED, 09/14/2022, 7:07. [facility], CT, CT ABDOMEN PELVIS W CON, 04/08/2025, 16:38. FINDINGS: Nonobstructing 5 mm stone is seen along periphery of the gallbladder. There is focal tenderness overlying the gallbladder. Liver measures 14 cm. CBD is prominent at 7 mm. IMPRESSION: Cholelithiasis with sonographic Simon sign suspicious for cholecystitis. CBD is prominent at 7 mm. Correlate LFT pattern. Dictated by: London Vences M.D. on 04/08/2025 at 19:12 Approved by: London Vences M.D. on 04/08/2025 at 19:[address] [address] [address] Scan Report Signed Patient: Corey Bean MR#: [id number] : 1985 Acct:[id number] Age/Sex: 39 / M Date of Service: 04/08/25 Loc: ED Accession Number: [id number] Procedure: CT abdomen pelvis w con Ordering Provider: Audelia Orellana PA-C PROCEDURE: CT ABDOMEN PELVIS W CON INDICATIONS: R flank pain TECHNIQUE: After the administration of intravenous contrast, axial sections acquired from the lung bases to the pubic symphysis. Coronal and sagittal reformats were performed. For radiation dose reduction, the following was used: automated exposure control, adjustment of mA and/or kV according to patient size. COMPARISON: [facility], CT, CT KIDNEY URETER BLADDER (KUB), 03/30/2025, 12:46. FINDINGS: Image quality: Diagnostic. Lower Chest: Mild bilateral gynecomastia. Lung bases are clear. ABDOMEN: Liver: No solid mass. Gallbladder: Punctate calcification in the posterior gallbladder likely small calculus. Biliary ducts: No biliary dilation. Pancreas: No ductal dilation. Spleen: Size is within normal limits. Adrenal Glands: No adrenal nodules. Kidneys and Ureters: No hydronephrosis. No solid mass. No complex renal cystic lesion which requires follow up. Stomach and Bowel: Moderate stool in the rectum. Liquid stool material is seen in the ascending and transverse colon. Status post appendectomy. Mildly prominent nondilated fluid-filled loops of small bowel. Peritoneum: No abnormal intraperitoneal fluid. No free air. Ventral Wall: No significant ventral hernia. Abdominal Nodes: No retroperitoneal or mesenteric adenopathy by size criteria. Vessels: Aorta and inferior vena cava are normal in size. PELVIS: Pelvic Organs: Unremarkable. Bladder: No bladder wall thickening, accounting for underdistention. Pelvic Nodes: No enlarged lymph nodes. Miscellaneous: Small bilateral fat containing inguinal hernias. Small fat containing periumbilical hernia. Bones: No aggressive osseous abnormality. Focal degenerative changes at the L4-5 and L5-S1 levels, better evaluated on lumbar spine CT. IMPRESSION: 1. Mildly prominent fluid-filled loops of small bowel are nonspecific but could indicate a mild enteritis. 2. Cholelithiasis. [address] [address] [address] Scan Report Signed Patient: Corey Bean MR#: [id number] : 1985 Acct:[id number] Age/Sex: 39 / M Date of Service: 04/08/25 Loc: ED Accession Number: [id number] Procedure: CT lumbar spine wo con Ordering Provider: Audelia Orellana PA-C PROCEDURE: CT LUMBAR SPINE WO CON INDICATIONS: low back pain TECHNIQUE: Noncontrast 3 mm thick sections acquired from the T12 level to the sacrum. Sagittal and coronal reformats were constructed. For radiation dose reduction, the following was used: automated exposure control. COMPARISON: [facility], CT, CT KIDNEY URETER BLADDER (KUB), 03/30/2025, 12:46. FINDINGS: Image quality: Excellent. Bones: Trace levoconvex curvature. No acute vertebral body compression fractures. No suspicious lytic or blastic bony lesions. No pars defects. T12-L1, L1-2, L2-3, and L3-4: No significant spinal canal stenosis or neural foraminal narrowing. L4-L5: Mild circumferential disc bulging and mild facet hypertrophy, which result in mild narrowing of the spinal canal and mild bilateral neural foraminal narrowing. L5-S1: Mild loss of disc space height with circumferential disc bulging and mild facet hypertrophy. Findings result in [id number] narrowing of the bilateral neural foramina without significant spinal canal narrowing. Soft tissues: No retroperitoneal masses or hematomas. Visualized aorta is normal in caliber. Surgical clips in the right lower quadrant with associated streak artifact. IMPRESSION: 1. No acute osseous abnormality. 2. Degenerative disc disease and facet hypertrophy at L4-5 and L5-S1, which do not result in high-grade spinal canal stenosis or high-grade neural foraminal narrowing. MRI could be performed for further evaluation if there is continued concern or persistent symptoms. [facility] Narrative Medical decision making narrative: 39-year-old male with past medical history melanoma, disc issues in the lower back returns to the ED for worsening lower back pain. Patient appears to be in significant pain. There is concern for disc herniation versus spinal stenosis versus intra-abdominal pathology versus epidural abscess versus other. Patient has an ankle bracelet for law enforcement reasons for tracking purposes, and therefore we are unable to obtain an MRI without removing it. According to patient, only law enforcement can remove it, and that they are unavailable due to the long weekend. Creatinine slightly elevated at 1.29, creatinine on 03/30/2025 was 1.27. Labs otherwise unremarkable. UA without UTI. Given patient's pain that is poorly controlled with Percocet and Dilaudid, will obtain CT abdomen pelvis to rule out intra-abdominal etiology. CT abdomen pelvis shows mildly prominent fluid-filled loops of small bowel which are nonspecific but could indicate a mild enteritis. CT also shows cholelithiasis. Will obtain ultrasound right upper quadrant to rule out biliary etiology. Social work was consulted, they are able to call law enforcement to remove the ankle bracelet for an MRI. Patient will not be able to obtain an MRI today, and there is no emergent indication for it. Given patient's intractable pain, will consider admission for pain control and MRI tomorrow. Patient is signed out to Dr. Bustamante at this time. Medical records reviewed: Yes All vital signs nurse triage note medication list previous ER visits all reviewed including repeat CAT scan and ultrasound today mildly prominent fluid-filled loops of small bowel nonspecific but could indicate mild enteritis and cholelithiasis. Ultrasound shows cholelithiasis with sonographic Simon sign suspicious for cholecystitis CBD is prominent 7 mm nurse. Case discussed with Dr. Huan BARAJAS MD at [facility] who indicated no need for emergent ERCP at this point but to proceed with MRCP and based on those findings to plan accordingly. Case discussed with Dr. Watson to admit to his service NPO at this time and to get CBC CMP amylase in the morning Dilaudid 2 mg IV q.3h as needed for pain and lactated Ringer's at 150 cc an hour and to admit to his service. Discharge Plan Departure Patient Disposition: Admitted As Inpatient Clinical Impression: Acute gallstone pancreatitis Prescriptions: No Action methocarbamol 500 mg tablet 500 mg PO TID Qty: 30 0RF methylprednisolone [Medrol (Fazal)] 4 mg tablets,dose pack See Rx Instructions .ROUTE .COMPLEX Qty: 21 0RF Rx Instructions: orally per package directions Admit Date/Time: 04/08/25 20:34 Admit Provider: Lion Berger
[2025-04-08] MEDS: OXYCODONE/ACETAMINOPHEN 5/325 TABLET 1 TAB PO (14:23)
[2025-04-08] MEDS: HYDROMORPHONE 1 MG INJ IV ×3 (14:48→20:10)
--- NOTE | 2025-04-08 15:09 | DI.CT.S_ITS ---
PROCEDURE: CT LUMBAR SPINE WO CON INDICATIONS: low back pain TECHNIQUE: Noncontrast 3 mm thick sections acquired from the T12 level to the sacrum. Sagittal and coronal reformats were constructed. For radiation dose reduction, the following was used: automated exposure control. COMPARISON: [facility], CT, CT KIDNEY URETER BLADDER (KUB), 03/30/2025, 12:46. FINDINGS: Image quality: Excellent. Bones: Trace levoconvex curvature. No acute vertebral body compression fractures. No suspicious lytic or blastic bony lesions. No pars defects. T12-L1, L1-2, L2-3, and L3-4: No significant spinal canal stenosis or neural foraminal narrowing. L4-L5: Mild circumferential disc bulging and mild facet hypertrophy, which result in mild narrowing of the spinal canal and mild bilateral neural foraminal narrowing. L5-S1: Mild loss of disc space height with circumferential disc bulging and mild facet hypertrophy. Findings result in [id number] narrowing of the bilateral neural foramina without significant spinal canal narrowing. Soft tissues: No retroperitoneal masses or hematomas. Visualized aorta is normal in caliber. Surgical clips in the right lower quadrant with associated streak artifact. IMPRESSION: 1. No acute osseous abnormality. 2. Degenerative disc disease and facet hypertrophy at L4-5 and L5-S1, which do not result in high-grade spinal canal stenosis or high-grade neural foraminal narrowing. MRI could be performed for further evaluation if there is continued concern or persistent symptoms. Approved by: Kolton Ponce M.D. on 04/08/2025 at 14:23
--- NOTE | 2025-04-08 16:14 | DI.CT.S_ITS ---
PROCEDURE: CT ABDOMEN PELVIS W CON INDICATIONS: R flank pain TECHNIQUE: After the administration of intravenous contrast, axial sections acquired from the lung bases to the pubic symphysis. Coronal and sagittal reformats were performed. For radiation dose reduction, the following was used: automated exposure control, adjustment of mA and/or kV according to patient size. COMPARISON: [facility], CT, CT KIDNEY URETER BLADDER (KUB), 03/30/2025, 12:46. FINDINGS: Image quality: Diagnostic. Lower Chest: Mild bilateral gynecomastia. Lung bases are clear. ABDOMEN: Liver: No solid mass. Gallbladder: Punctate calcification in the posterior gallbladder likely small calculus. Biliary ducts: No biliary dilation. Pancreas: No ductal dilation. Spleen: Size is within normal limits. Adrenal Glands: No adrenal nodules. Kidneys and Ureters: No hydronephrosis. No solid mass. No complex renal cystic lesion which requires follow up. Stomach and Bowel: Moderate stool in the rectum. Liquid stool material is seen in the ascending and transverse colon. Status post appendectomy. Mildly prominent nondilated fluid-filled loops of small bowel. Peritoneum: No abnormal intraperitoneal fluid. No free air. Ventral Wall: No significant ventral hernia. Abdominal Nodes: No retroperitoneal or mesenteric adenopathy by size criteria. Vessels: Aorta and inferior vena cava are normal in size. PELVIS: Pelvic Organs: Unremarkable. Bladder: No bladder wall thickening, accounting for underdistention. Pelvic Nodes: No enlarged lymph nodes. Miscellaneous: Small bilateral fat containing inguinal hernias. Small fat containing periumbilical hernia. Bones: No aggressive osseous abnormality. Focal degenerative changes at the L4-5 and L5-S1 levels, better evaluated on lumbar spine CT. IMPRESSION: 1. Mildly prominent fluid-filled loops of small bowel are nonspecific but could indicate a mild enteritis. 2. Cholelithiasis. Approved by: Kolton Ponce M.D. on 04/08/2025 at 16:43
[2025-04-08 16:38] LABS: INR 1.1 (0.9-1.3); Prothrombin Time 12.3 SECONDS (9.4-12.5)
[2025-04-08 16:41] LABS: PTT Partial Thromboplastin Tim 39 SECONDS (25.1-36.5)
[2025-04-08 16:42] LABS: Add Manual Diff / Slide Review NO; Alanine Aminotransferase 33 IU/L (<50); Albumin Globulin Ratio 1.6 (1.0-2.8); Alkaline Phosphatase 67 U/L (38-126); Aspartate Aminotransferase 30 IU/L (17-59); BUN Creatinine Ratio 20.9 (6-22); Basophils Absolute Auto 0 /uL (0-100); Basophils Percent Auto 0.3 % (0-2); Bilirubin Total 0.6 mg/dL (0.2-1.3); Blood Urea Nitrogen 27 mg/dL (9-20); Calcium 9.6 mg/dL (8.4-10.2); Carbon Dioxide 22 mmol/L (22-32); Chloride 103 mmol/L (98-107); Eosinophils Absolute Auto 0 /uL (0-450); Eosinophils Percent Auto 0.1 % (2-4); Estimated Glomerular Filt Rate > 60 mL/min (>60); Globulin 3.2 g/dL (1.7-4.1); Glucose 117 mg/dL (70-99); HEMOLYSIS < 15 (0-50); Hematocrit 49.9 % (41-53); Lymphocytes Absolute Auto 900 /uL (1100-4500); Mean Corpuscular HGB Conc 34.2 % (30-36); Mean Corpuscular Hemoglobin 30.2 PG (26-34); Mean Corpuscular Volume 88.5 fL (80-100); Monocytes Absolute Auto 600 /uL (0-900); Monocytes Percent Auto 5.6 % (3-14); Neutrophils Absolute Auto 8500 /uL (1500-7000); Platelet Count 228 X10^3/uL (150-400); Potassium 4.6 mmol/L (3.4-5.1); Red Blood Cell Count 5.64 X10^6/uL (4.5-5.9); Red Cell Distribution Width 13.9 % (11.6-14.8); Sodium 136 mmol/L (137-145); Total Protein 8.2 g/dL (6.3-8.2)
--- NOTE | 2025-04-08 17:31 | CM.DANOTE ---
ED DOPE AND FABRIC WORKER DCP Assessment Note: Pt is a 39yo male, resident of [place], is seen in the ED for unmanaged back pain. Pt lives in a house with his partner, Deyanira, and their daughter. Pt's Primary Care Provider is Dr. Jurgen Lerma ([facility]) and insurance is [facility] and Self Pay. Reviewed chart and discussed with multidisciplinary team pt's medical status and initial discharge needs. Per CLAU, patient needs an MRI to further determine source of pain. Barrier: Patient is part of the [facility] with [employer] and monitored with ankle bracelet. Bracelet is not compatible with MRI scans and will need to be removed by Agricultural Technician or monitor pump installation and servicer prior to scan. ED DOPE AND FABRIC WORKER met w/patient at bedside; introduced self and role. Patient was found in chair, alert and oriented, cooperative with assessment. Pt confirmed living situation and good support in partner, who is also at bedside. Patient states he has already made a call to his Agricultural Technician - Deputy Julia Sanchez, ph#[phone]. Due to the holiday, the PO is not available. DOPE AND FABRIC WORKER left a voice message requesting a call back the following day for coordination of removal. ED DOPE AND FABRIC WORKER called [facility], spoke with the officer on duty. It is reported that on weekends, the maintaining agency of the ankle monitor will be able to respond to a removal call. It is identified that there is no third-constitution party agency listed on the monitor as described. Per patient, Deputy Sanchez has always done the maintenance of the device herself at the [facility]. ED DOPE AND FABRIC WORKER discussed with ED Provider, CLAU Orellana, who will continue alternative medical work up to find source of pain and pain management. Plan: Medical work up continues, possible admission for pain management and coordination for MRI. Pt partner able to transport home when cleared. ED staff will follow closely for coordination of discharge plans. BABITA Reyes Discharge Planning/Care Management CM Discharge Assessment Start: 04/08/25 17:30 Freq: Status: Active Protocol: Document 04/08/25 17:30 MW (Rec: 04/08/25 17:31 MW [id number]) Discharge Planning Assessment Assigned Aircraft Navigator Belinda, DOPE AND FABRIC WORKER DPOA/Assigned Designee Name Deyanira Pittman, Partner Contact Information [phone] Advance Directives? No History Provided By Patient,Family Member,Medical Record Has Patient been admitted in last 30 No days? Comment Multiple ED visits in the last few days due to unmanaged pain Prior Living Arrangements House Household Members significant other,children Type of transporation used prior to Drives own vehicle admit Independent with ADL's Yes Is patient alert and oriented? Yes Discharge Plan Home Whiteboard Updated in Patient Room with Yes name and ext. # of Aircraft Navigator Comment [id number] Review Status In Process Please Provide Date Initial DC 04/08/25 Assessment Was Performed Next Review Type Continued Stay Review
[2025-04-08 17:40] LABS: UR Morphine/Opiate cutoff 300 Negative (Negative); Ur Creatinine Normal (Normal); Ur Specific Gravity Normal (Normal); Urine Amphetamines Negative (Negative); Urine Cocaine Negative (Negative); Urine Methamphetamines Negative (Negative); Urine Tetrahydrocannabinol Negative (Negative); Urine pH Normal (Normal)
[2025-04-08 17:41] LABS: Urine Barbiturates Negative (Negative); Urine Benzodiazepines Positive (Negative); Urine MDMA Negative (Negative); Urine Methadone Negative (Negative); Urine Oxycodone Positive (Negative); Urine Phencyclidine Negative (Negative); Urine Tricyclic Antidepressant Negative (Negative)
[2025-04-08 17:42] LABS: Lipase 495 U/L (23-300)
--- NOTE | 2025-04-08 18:05 | DI.US.S_ITS ---
PROCEDURE: US ABDOMEN LIMITED INDICATIONS: ?cholecystitis TECHNIQUE: Real-time focused scanning was performed of the abdomen, with image documentation. COMPARISON: [facility], US, US ABDOMEN LIMITED, 09/14/2022, 7:07. [facility], CT, CT ABDOMEN PELVIS W CON, 04/08/2025, 16:38. FINDINGS: Nonobstructing 5 mm stone is seen along periphery of the gallbladder. There is focal tenderness overlying the gallbladder. Liver measures 14 cm. CBD is prominent at 7 mm. IMPRESSION: Cholelithiasis with sonographic Simon sign suspicious for cholecystitis. CBD is prominent at 7 mm. Correlate LFT pattern. Dictated by: London Vences M.D. on 04/08/2025 at 19:12 Approved by: London Vences M.D. on 04/08/2025 at 19:13
--- NOTE | 2025-04-08 19:02 | PC.NURSE ---
Pt requesting something for pain. Dr Bustamante notified. No new orders.
--- NOTE | 2025-04-08 20:38 | DI.MRI.S_ITS ---
PROCEDURE: MR ABDOMEN WO/W CON INDICATIONS: gallstone pancreatitis, WEARS ANKLE BRACE LAW ENFORCEMENT TECHNIQUE: Coronal HASTE, axial 2D FLASH in- and [id number]; axial breath-hold T2 FSE with fat saturation from the hepatic dome to the iliac crests. Oblique coronal thin-slice and radial thick slab HASTE through the biliary system. Dynamic axial VIBE during administration of contrast. Post-contrast coronal VIBE or 2D FLASH with fat saturation from the hepatic dome to the iliac crests. Optional diffusion weighted imaging and ADC may be performed. COMPARISON: [facility], CT, CT ABDOMEN PELVIS W CON, 04/08/2025, 16:38. [facility], US, US ABDOMEN LIMITED, 04/08/2025, 18:49. FINDINGS: Image quality: Diagnostic Lower chest: Unremarkable lung bases Partially seen gynecomastia Liver: Unremarkable Gallbladder and biliary system: Cholelithiasis, small stone near the neck, with gallbladder distention. No high-grade inflammation on MRI. CBD measures 6 mm, which is within normal limits. No definite filling defect. Pancreas: No ductal dilation Spleen: Nonenlarged Adrenals: No discrete nodules Kidneys: No solid mass or hydronephrosis. Vessels and lymph nodes: The main portal vein is patent. No abdominal aortic aneurysm. No enlarged lymph nodes by size criteria. Bowel and peritoneum: Nonobstructed small bowel. No drainable abscess or ascites Body wall: Unremarkable Bones: No aggressive appearing osseous abnormality. IMPRESSION: Nondilated CBD, no definite filling defect, ERCP can further evaluate if clinically necessary. No significant peripancreatic or pericholecystic inflammation on MRI. However, the gallbladder is distended with small stone near the neck. Other findings above. Dictated by: London Vences M.D. on 04/09/2025 at 11:12 Approved by: London Vences M.D. on 04/09/2025 at 11:17
[2025-04-08] MEDS: HYDROMORPHONE 2 MG INJ IV ×2 (20:56→23:01)
[2025-04-08] MEDS: LACTATED RINGERS 1,000 ML 1000 ML IV ×3 (20:57→23:12)
[2025-04-09] MEDS: LACTATED RINGERS 1,000 ML 150 ML IV ×4 (00:27→21:04)
[2025-04-09] MEDS: HYDROMORPHONE 2 MG INJ IV ×6 (00:57→13:12)
[2025-04-09 05:13] LABS: Add Manual Diff / Slide Review NO; Basophils Absolute Auto 0 /uL (0-100); Basophils Percent Auto 0.3 % (0-2); Eosinophils Absolute Auto 100 /uL (0-450); Eosinophils Percent Auto 0.8 % (2-4); Hematocrit 42.2 % (41-53); Hemoglobin 14.3 g/dL (13.5-17.5); Lymphocytes Absolute Auto 1100 /uL (1100-4500); Lymphocytes Percent Auto 12.8 % (25-40); Mean Corpuscular Hemoglobin 30.1 PG (26-34); Mean Corpuscular Volume 88.5 fL (80-100); Monocytes Absolute Auto 800 /uL (0-900); Monocytes Percent Auto 8.9 % (3-14); Neutrophils Absolute Auto 6700 /uL (1500-7000); Neutrophils Percent Auto 77.2 % (50-75); Platelet Count 178 X10^3/uL (150-400); Red Blood Cell Count 4.76 X10^6/uL (4.5-5.9); Red Cell Distribution Width 13.8 % (11.6-14.8); White Blood Cell Count 8.7 X10^3/uL (4.5-11.0)
[2025-04-09 05:29] LABS: Alanine Aminotransferase 24 IU/L (<50); Albumin 4.1 g/dL (3.5-5.0); Albumin Globulin Ratio 1.8 (1.0-2.8); Alkaline Phosphatase 54 U/L (38-126); Amylase 142 U/L (30-110); Aspartate Aminotransferase 25 IU/L (17-59); BUN Creatinine Ratio 17.8 (6-22); Bilirubin Total 0.4 mg/dL (0.2-1.3); Blood Urea Nitrogen 23 mg/dL (9-20); Calcium 8.6 mg/dL (8.4-10.2); Carbon Dioxide 31 mmol/L (22-32); Chloride 102 mmol/L (98-107); Estimated Glomerular Filt Rate > 60 mL/min (>60); Globulin 2.3 g/dL (1.7-4.1); Glucose 109 mg/dL (70-99); HEMOLYSIS < 15 (0-50); Potassium 4.7 mmol/L (3.4-5.1); Sodium 138 mmol/L (137-145); Total Protein 6.4 g/dL (6.3-8.2)
[2025-04-09 08:00] VITALS: BP 108/53; PULSE 65; RESP 16; TEMP 36.5; O2SAT 91
--- NOTE | 2025-04-09 09:33 | CM.DPNOTE ---
Addendum entered by SHABANA Cheatham 04/09/25 14:46: per chart, inderjit kerre scheduled for tomorrow afternoon with Dr. Yi. CM team will continue to follow as needed for any DCP needs that should arise post op SL Original Note: DCP Note Per clinic charge nurse/ED WEB MANAGER note, pt has an ankle monitor that needs to be removed prior to MRI. WEB MANAGER called [facility] Sanchez, ph#[phone]. Per [facility]vue Ryan, she is not able to come in to the hospital to remove the monitor. Per Daniel, she said Don't cut the band itself. there is a band robotics application engineer that is a plastic thing about an inch wide that the holds the bands together. If you cut the plastic thing with little scissors then the bands will come undone. then he'll have to report there to have it back on. WEB MANAGER updated clinic charge nurse/bedside nurse. DCP will continue to follow closely for DCP needs. SHABANA Cheatham
--- NOTE | 2025-04-09 09:40 | PC.NURSE ---
Addendum entered by Britney Ceballos R.N. 04/09/25 11:22: [employer] Sanchez # [phone] Original Note: Spoke to Orangeval[employer] Sanchez after being unable to cut the plastic piece on the ankle monitoring bracelet, was instructed to cut the strap. Strap was cut, monitor was left with the pt to be replaced when pt is discharged.
--- NOTE | 2025-04-09 10:11 | PC.NURSE ---
Pt a&o follows commands. discussed pain management and plan for the morning. Coodinator Britney removed ankle bracelet in accordance with 's instruction so pt could have MRI. Family attentive in the room. Pt down to MRI at 10:10.
--- NOTE | 2025-04-09 14:50 | PC.NURSE ---
Addendum entered by Ashlie Amor R.N. 04/09/25 17:18: 1718 Patient complaining of pain creeping back up, Previously stated there was relief with morphine, however, would like to have Dilaudid on JAN instead of Morphine. Call placed to MD Yi and orders received to d/c Morphine order and add 1.2 mg Dilaudid every 2 hours PRN. Orders also received for patient to be full code status. Original Note: 1255 MD Yi at the bedside speaking on patient regarding possible surgery tomorrow. Patient verbalized understanding, no questions at this time. Patient to be NPO at midnight 1450 Call placed to MD Yi regarding patient complaint of pain. Patient given pain medication, stated, uneffective. Orders received for morphine 5 mg q 2 PRN and discontinue Dilaudid
[2025-04-09 15:00] VITALS: BP 130/82; PULSE 64; RESP 17; TEMP 36.3; O2SAT 95
[2025-04-09] MEDS: MORPHINE 2 MG/ML INJ 5 MG IV (15:23)
--- NOTE | 2025-04-09 17:47 | PM.HP.IH.1 ---
History of Present Illness History of Present Illness Date Patient Seen: 04/09/25 Time Patient Seen: 17:47 Chief complaint: back pain Narrative: Corey is a 39-year-old man who presented to the emergency department because of lower back pain. He was found to have a dilated inflamed gallbladder and gallstones on CT and ultrasound. He was also noted to have mild elevation in his lipase. He did undergo an MRCP which found no evidence of choledocholithiasis or peripancreatic edema. It did show a stone lodged at the cystic duct. [facility] Social History household members: significant other and children Smoking Status: Never smoker alcohol intake: current Meds Home Medications and Allergies Home Medications Medication Instructions Recorded Confirmed Type clonazepam 2 mg tablet 2 mg PO DIRECTED 04/08/25 04/08/25 History sertraline 50 mg tablet 50 mg PO DAILY 04/08/25 04/08/25 History Allergies Allergy/AdvReac Type Severity Reaction Status Date / Time Penicillins AdvReac Hives Verified 04/08/25 00:28 Exam Vital Signs (past 8 hours): - 04/09/25 15:00 Temperature 97.3 F L Pulse Rate 64 Respiratory Rate 17 Blood Pressure 130/82 Pulse Oximetry 95 Oxygen Flow Rate 0 Oxygen Delivery Method Room Air Oxygen Flow Rate 0 Narrative Exam Narrative: Tender to palpation in the right upper quadrant Objective Labs 04/09/25 04:50 04/09/25 04:50 Labs: Laboratory Results - last 24 hr 04/08/25 04/09/25 16:18 04:50 WBC 8.7 RBC 4.76 Hgb 14.3 Hct 42.2 MCV 88.5 MCH 30.1 MCHC 34.0 RDW 13.8 Plt Count 178 Neut % (Auto) 77.2 H Lymph % (Auto) 12.8 L [place] % (Auto) 8.9 Eos % (Auto) 0.8 L Baso % (Auto) 0.3 Neut # (Auto) 6700 Lymph # (Auto) 1100 [place] # (Auto) 800 Eos # (Auto) 100 Baso # (Auto) 0 Sodium 138 Potassium 4.7 Chloride 102 Carbon Dioxide 31 BUN 23 H Creatinine 1.29 H Estimated GFR > 60 BUN/Creatinine Ratio 17.8 Glucose 109 H Calcium 8.6 Total Bilirubin 0.4 AST 25 ALT 24 Alkaline Phosphatase 54 Total Protein 6.4 Albumin 4.1 Globulin 2.3 Albumin/Globulin Ratio 1.8 Amylase 142 H Lipase 495 H D Assessment & Plan Assessment and plan (1) Acute cholecystitis: Status: Acute Plan Corey is a 39-year-old man with acute cholecystitis. I recommended a laparoscopic or if possible robotic cholecystectomy with an intraoperative cholangiogram. Plan would be to proceed tomorrow. Time-Based Coding :: [TOTAL MINUTES] spent with patient and on the chart (including review of chart, obtaining history, exam, reviewing outside data, placing orders, documenting exam and treatment plan, and counseling patient) on [DATE]. Quality VTE Deep Vein Thrombosis/Pulmonary Embolism Present on Admission: No PROFEE Prop Cutter Document charge(s): No
[2025-04-09] MEDS: HYDROMORPHONE 0.5 MG INJ 1.2 MG IV ×3 (18:03→23:09)
[2025-04-09 20:49] VITALS: BP 129/76; PULSE 77; RESP 18; TEMP 36.6; O2SAT 95
[2025-04-09] MEDS: clonazePAM 0.5 MG TABLET 2 MG PO (20:53)
[2025-04-10] VITALS (16 sets, daily range): BP systolic 118–148; BP diastolic 72–95; PULSE 60–99; RESP 10–18; TEMP 36.4–37.2; O2SAT 90–98; BMI 34.4
--- NOTE | 2025-04-10 | DI.RAD.S_ITS ---
PROCEDURE: XR CHOLANGIOGRAM OPERATIVE INDICATIONS: lap rolando COMPARISON: None. FINDINGS: Biliary ducts: The surgeon injected contrast into the biliary ducts after cannulation of the cystic duct stump. Visualized intra- and extrahepatic bile ducts are normal in caliber, without strictures. No intraluminal filling defects to suggest retained ductal stones or sludge. No evidence for iatrogenic ductal injury. Duodenum: Contrast flows promptly through the sphincter of Oddi into the duodenum, which appears normal in caliber. IMPRESSION: Intraoperative cholangiogram shows patent common bile duct without choledocholithiasis. Dictated by: Yobany Maloney M.D. on 04/10/2025 at 16:31 Approved by: Yobany Maloney M.D. on 04/10/2025 at 16:31
[2025-04-10] MEDS: HYDROMORPHONE 0.5 MG INJ 1.2 MG IV ×3 (01:32→05:43)
[2025-04-10] MEDS: LACTATED RINGERS 1,000 ML 150 ML IV ×3 (03:56→14:38)
[2025-04-10] MEDS: HYDROMORPHONE 0.5 MG INJ 1.5 MG IV ×4 (07:54→22:58)
[2025-04-10] MEDS: ACETAMINOPHEN 325 MG TABLET 975 MG PO (12:40)
--- NOTE | 2025-04-10 12:48 | P.PN_ITS ---
Subjective Subjective Date Patient Seen: 04/10/25 Time Patient Seen: 12:48 Interval history: Corey has continued to have abdominal pain. Exam Vital Signs (past 8 hours): - 04/10/25 07:00 04/10/25 12:19 Temperature 97.6 F 98.2 F Pulse Rate 60 64 Respiratory Rate 17 16 Blood Pressure 120/79 140/87 Pulse Oximetry 98 97 Oxygen Delivery Method Room Air Oxygen Flow Rate 0 Oxygen Delivery Method Room Air Oxygen Flow Rate 0 Const General: No acute distress Resp Effort & Inspection: normal respiratory effort Objective Labs 04/09/25 04:50 04/09/25 04:50 [facility] Social History household members: significant other and children Smoking Status: Never smoker alcohol intake: current Assessment & Plan Assessment and plan (1) Acute cholecystitis: Status: Acute Plan We reviewed the risks and benefits of robotic cholecystectomy with intraoperative cholangiogram and he would like to proceed. Time-Based Coding :: [TOTAL MINUTES] spent with patient and on the chart (including review of chart, obtaining history, exam, reviewing outside data, placing orders, documenting exam and treatment plan, and counseling patient) on [DATE]. Quality VTE Deep Vein Thrombosis/Pulmonary Embolism Present on Admission: No IH PROFEE Home Care Liaison Document charge(s): No
[2025-04-10] MEDS: CEFAZOLIN 2 GM/100 ML PREMIX 100 ML IV (13:07)
--- NOTE | 2025-04-10 13:25 | SUR.OPER ---
Supine on padded OR bed, head on pillow, upper body covered and secured with tape, arms padded and tucked at sides, legs uncrossed, safety belt at thigh, tape over blanket over lower legs .
[2025-04-10] MEDS: BUPIVACAINE 0.5% W/ EPI (PF) 30 ML VIAL INJ (13:43)
[2025-04-10] MEDS: iopamidoL 30 ML VIAL INJ (13:44)
--- NOTE | 2025-04-10 15:10 | P.OP_ITS ---
Operative Date/Time/Diagnoses Date of procedure: 04/10/25 Time of procedure: 15:10 Pre-op diagnosis: Acute cholecystitis Post-op diagnosis: same Procedure & Clinicians Procedure: Robotic cholecystectomy with intraoperative cholangiogram Same procedure as scheduled: Yes Surgeon: Elio Yi Engine Testing Supervisor: Juan Carlos Odell Anesthesia Type: General Operative Notes Findings: Distended gallbladder Adhesions of visceral adipose tissue to the gallbladder serosa Normal cholangiogram Estimated Blood Loss (mL): 10 Procedure in detail: The patient was on scheduled antibiotics. The patient was brought to the operating room, placed on the table in the supine position. General endotracheal anesthesia was induced. Both arms were tucked. The abdomen was prepped and draped. A time-out was performed. We made a 1 cm infraumbilical incision. We dissected down to the base of the umbilical stalk using cautery. We grasped the umbilical stalk with a Ash clamp to elevate the abdominal wall. We opened the fascia in the midline with cautery. We pierced the peritoneum with a Peon clamp. The 12 mm port was placed and the abdomen was insufflated to 15 mmHg. The endoscope was inserted. There was no evidence of any injury from the entry. Next, we placed one 8 mm port in the right abdomen and two in the left abdomen. The patient was then positioned in 15? of reverse Trendelenburg and the table was tilted slightly to the left. The robot was brought in from the patient's left side and docked. A fenestrated bipolar was placed through arm 1, the hook cautery through arm 3 and the ProGrasp through arm 4. The gallbladder was grasped at the dome with the ProGrasp and retracted cephalad. There were some adhesions of visceral adipose tissue to the gallbladder serosa which were carefully dissected with the hook cautery. We then dissected the cystic structures with hook cautery. We obtained a critical view. Firefly was used to confirm the anatomy. Next, a cholangiogram was performed using the 4 Belarusian ureteral catheter through a 14 gauge Angiocath placed in the right upper quadrant. There was good flow of contrast into the duodenum and liver with no obvious filling defects. The cystic duct-common duct junction was well visualized. We then placed hemoclips on the cystic duct and artery and divided the cystic duct and artery between the clips. The gallbladder was then dissected off the liver and placed in a specimen retrieval bag. A small amount of blood was suctioned out of the right upper quadrant. We then removed the 8 mm ports under direct vision we removed the 12 mm port. We then injected some local into the fascia and closed the fascia at the infraumbilical incision with two interrupted 0 Vicryl sutures. The skin incisions were closed with 4 Monocryl and Steri-Strips were applied. Band-Aids were applied over the Steri-Strips. EBL: 10 mL Specimen: Gallbladder and contents Complications: none Post-operative Condition: stable Disposition: PACU
[2025-04-10] MEDS: HYDROMORPHONE 1 MG INJ IV ×4 (15:51→16:46)
[2025-04-10] MEDS: MEPERIDINE 50 MG/ML INJ 25 MG IV ×2 (15:53→16:09)
[2025-04-10] MEDS: ONDANSETRON 4 MG/2 ML INJ IV (15:56)
[2025-04-10] MEDS: hydrOXYzine 50 MG/ML INJ IM (15:58)
[2025-04-10] MEDS: OXYCODONE IR 5 MG TABLET PO (16:16)
[2025-04-10] MEDS: HYDROCODONE/ACET 5/325 TABLET 2 TAB PO (19:48)
[2025-04-10 20:15] LABS: Add Manual Diff / Slide Review NO; Basophils Absolute Auto 100 /uL (0-100); Basophils Percent Auto 0.5 % (0-2); Eosinophils Absolute Auto 0 /uL (0-450); Eosinophils Percent Auto 0.1 % (2-4); Hematocrit 43.7 % (41-53); Lymphocytes Absolute Auto 700 /uL (1100-4500); Lymphocytes Percent Auto 6.8 % (25-40); Mean Corpuscular HGB Conc 34.3 % (30-36); Mean Corpuscular Hemoglobin 30.4 PG (26-34); Mean Corpuscular Volume 88.7 fL (80-100); Monocytes Absolute Auto 300 /uL (0-900); Monocytes Percent Auto 2.8 % (3-14); Neutrophils Absolute Auto 9300 /uL (1500-7000); Neutrophils Percent Auto 89.8 % (50-75); Platelet Count 181 X10^3/uL (150-400); Red Blood Cell Count 4.93 X10^6/uL (4.5-5.9); Red Cell Distribution Width 14.1 % (11.6-14.8); White Blood Cell Count 10.4 X10^3/uL (4.5-11.0)
[2025-04-10 20:26] LABS: Alanine Aminotransferase 34 IU/L (<50); Albumin 4.3 g/dL (3.5-5.0); Albumin Globulin Ratio 1.7 (1.0-2.8); Alkaline Phosphatase 59 U/L (38-126); Aspartate Aminotransferase 33 IU/L (17-59); BUN Creatinine Ratio 11.9 (6-22); Bilirubin Total 0.4 mg/dL (0.2-1.3); Blood Urea Nitrogen 17 mg/dL (9-20); Calcium 9.1 mg/dL (8.4-10.2); Carbon Dioxide 32 mmol/L (22-32); Chloride 98 mmol/L (98-107); Estimated Glomerular Filt Rate > 60 mL/min (>60); Globulin 2.5 g/dL (1.7-4.1); Glucose 166 mg/dL (70-99); HEMOLYSIS < 15 (0-50); Potassium 4.3 mmol/L (3.4-5.1); Sodium 138 mmol/L (137-145); Total Protein 6.8 g/dL (6.3-8.2)
[2025-04-10] MEDS: clonazePAM 0.5 MG TABLET 2 MG PO (20:40)
[2025-04-11] MEDS: HYDROCODONE/ACET 5/325 TABLET 2 TAB PO ×3 (00:17→09:29)
[2025-04-11] MEDS: HYDROMORPHONE 0.5 MG INJ 1.5 MG IV ×2 (01:47→07:04)
[2025-04-11] MEDS: SERTRALINE 50 MG TABLET PO (08:28)
[2025-04-11] MEDS: HYDROMORPHONE 2 MG INJ 1.5 MG IV ×5 (09:03→21:24)
[2025-04-11] MEDS: OXYCODONE IR 5 MG TABLET 10 MG PO ×4 (12:47→23:24)
--- NOTE | 2025-04-11 13:57 | CM.DPNOTE ---
EZEQUIELP Cont Reviewed chart. Patient discussed in multidisciplinary rounds. POD 1 from inderjit marshall. Discharge once tolerating diet. Plan remains discharge home w/close outpatient follow up. Patient lives indp w/family. Indp in room. Patient has an ankle monitor that he will need to have on upon discharge. Deputy Julia Sanchez, ph#[phone] call as needed for addtl detail. CM team following clinical course closely in case any discharge needs or concerns arise. PARESH
--- NOTE | 2025-04-11 14:51 | PC.NURSE ---
Day shift: Patient consistently rating pain 8-10/10. Given IV dilaudid + PO pain medications as frequently as ordered. Called MD Yi to relay patient's persistent pain - PO pain medication frequency changed from Q4hrs to Q3hrs. Patient able to shower - steri strips left in place, replaced outer dressings with bandaids. Encouraged patient to ambulate in room and/or hallway - despite encouragement, patient did not ambulate except to the bathroom and back. No nausea - patient tolerating general diet. Will continue to monitor.
[2025-04-11] MEDS: polyethylene glycoL 3350 17 GM POWD.PACK PO (15:42)
[2025-04-11] MEDS: DOCUSATE 100 MG CAPSULE 200 MG PO (15:42)
[2025-04-11] MEDS: SENNOSIDES 8.6 MG TABLET PO (15:42)
--- NOTE | 2025-04-11 16:54 | P.PN_ITS ---
Subjective Subjective Date Patient Seen: 04/11/25 Time Patient Seen: 16:54 Interval history: Corey continues to experience abdominal pain and lower back pain and he was still using IV pain medicines. He states that the pain is similar to for surgery but also at the incisions. Exam Vital Signs (past 8 hours): Oxygen Delivery Method Nasal Cannula Oxygen Flow Rate 0 Narrative Exam Narrative: Abdomen is soft, diffusely tender to palpation Objective Labs 04/10/25 20:10 04/10/25 20:10 Labs: Laboratory Results - last 24 hr 04/10/25 20:10 WBC 10.4 RBC 4.93 Hgb 15.0 Hct 43.7 MCV 88.7 MCH 30.4 MCHC 34.3 RDW 14.1 Plt Count 181 Neut % (Auto) 89.8 H Lymph % (Auto) 6.8 L [place] % (Auto) 2.8 L Eos % (Auto) 0.1 L Baso % (Auto) 0.5 Neut # (Auto) 9300 H Lymph # (Auto) 700 L [place] # (Auto) 300 Eos # (Auto) 0 Baso # (Auto) 100 Sodium 138 Potassium 4.3 Chloride 98 Carbon Dioxide 32 BUN 17 Creatinine 1.43 H Estimated GFR > 60 BUN/Creatinine Ratio 11.9 Glucose 166 H Calcium 9.1 Total Bilirubin 0.4 AST 33 ALT 34 Alkaline Phosphatase 59 Total Protein 6.8 Albumin 4.3 Globulin 2.5 Albumin/Globulin Ratio 1.7 PFSH Social History household members: significant other and children Smoking Status: Never smoker alcohol intake: current Assessment & Plan Assessment and plan (1) Acute cholecystitis: Status: Acute Plan Continue to wean off pain medications We will check labs Time-Based Coding :: [TOTAL MINUTES] spent with patient and on the chart (including review of chart, obtaining history, exam, reviewing outside data, placing orders, documenting exam and treatment plan, and counseling patient) on [DATE]. Quality VTE Deep Vein Thrombosis/Pulmonary Embolism Present on Admission: No IH PROFEE Build Master Document charge(s): No
[2025-04-11 17:30] VITALS: BP 125/83; PULSE 89; RESP 21; TEMP 36.4; O2SAT 94
[2025-04-11 18:24] LABS: Add Manual Diff / Slide Review NO; Basophils Absolute Auto 0 /uL (0-100); Basophils Percent Auto 0.3 % (0-2); Eosinophils Absolute Auto 200 /uL (0-450); Eosinophils Percent Auto 2.4 % (2-4); Hematocrit 44.2 % (41-53); Hemoglobin 14.9 g/dL (13.5-17.5); Lymphocytes Absolute Auto 1300 /uL (1100-4500); Lymphocytes Percent Auto 15.7 % (25-40); Mean Corpuscular HGB Conc 33.7 % (30-36); Monocytes Absolute Auto 600 /uL (0-900); Monocytes Percent Auto 7.9 % (3-14); Neutrophils Absolute Auto 6000 /uL (1500-7000); Neutrophils Percent Auto 73.7 % (50-75); Platelet Count 171 X10^3/uL (150-400); Red Blood Cell Count 4.96 X10^6/uL (4.5-5.9); Red Cell Distribution Width 13.9 % (11.6-14.8); White Blood Cell Count 8.2 X10^3/uL (4.5-11.0)
[2025-04-11 18:36] LABS: Alanine Aminotransferase 42 IU/L (<50); Albumin 3.9 g/dL (3.5-5.0); Albumin Globulin Ratio 1.6 (1.0-2.8); Alkaline Phosphatase 84 U/L (38-126); Aspartate Aminotransferase 45 IU/L (17-59); BUN Creatinine Ratio 14.7 (6-22); Bilirubin Total 0.3 mg/dL (0.2-1.3); Blood Urea Nitrogen 16 mg/dL (9-20); Calcium 8.6 mg/dL (8.4-10.2); Carbon Dioxide 30 mmol/L (22-32); Chloride 102 mmol/L (98-107); Estimated Glomerular Filt Rate > 60 mL/min (>60); Globulin 2.5 g/dL (1.7-4.1); Glucose 136 mg/dL (70-99); HEMOLYSIS 15 (0-50); Lipase 401 U/L (23-300); Potassium 3.3 mmol/L (3.4-5.1); Sodium 138 mmol/L (137-145); Total Protein 6.4 g/dL (6.3-8.2)
[2025-04-11 20:00] VITALS: BP 122/80; PULSE 88; RESP 19; TEMP 36.6; O2SAT 99
[2025-04-11] MEDS: clonazePAM 0.5 MG TABLET 2 MG PO (21:23)
[2025-04-12] MEDS: OXYCODONE IR 5 MG TABLET 10 MG PO ×3 (05:26→11:38)
[2025-04-12 08:00] VITALS: BP 112/89; PULSE 56; RESP 18; TEMP 36.4; O2SAT 96
[2025-04-12] MEDS: SERTRALINE 50 MG TABLET PO (08:38)
[2025-04-12] MEDS: POTASSIUM CHLORIDE 20 MEQ TAB 40 MEQ PO (12:14)
--- NOTE | 2025-04-12 12:49 | PM.PN.IH.1 ---
Subjective Subjective Date Patient Seen: 04/12/25 Exam Vital Signs (past 8 hours): - 04/12/25 08:00 Temperature 97.5 F L Pulse Rate 56 L Respiratory Rate 18 Blood Pressure 112/89 Pulse Oximetry 96 Oxygen Flow Rate 0 Oxygen Delivery Method Nasal Cannula Oxygen Flow Rate 0 Narrative Exam Narrative: Lungs are clear to auscultation. Abdomen is generally soft and nontender. Umbilical wound has a small amount of discoloration which may represent early cellulitis. Heart has a regular rate and rhythm with no murmur or gallop. Objective Labs 04/11/25 18:00 04/11/25 18:00 Labs: Laboratory Results - last 24 hr 04/11/25 18:00 WBC 8.2 RBC 4.96 Hgb 14.9 Hct 44.2 MCV 89.0 MCH 30.0 MCHC 33.7 RDW 13.9 Plt Count 171 Neut % (Auto) 73.7 Lymph % (Auto) 15.[address] [place] % (Auto) 7.9 Eos % (Auto) 2.4 Baso % (Auto) 0.3 Neut # (Auto) 6000 Lymph # (Auto) 1300 [place] # (Auto) 600 Eos # (Auto) 200 Baso # (Auto) 0 Sodium 138 Potassium 3.3 L Chloride 102 Carbon Dioxide 30 BUN 16 Creatinine 1.09 Estimated GFR > 60 BUN/Creatinine Ratio 14.7 Glucose 136 H Calcium 8.6 Total Bilirubin 0.3 AST 45 ALT 42 Alkaline Phosphatase 84 Total Protein 6.4 Albumin 3.9 Globulin 2.5 Albumin/Globulin Ratio 1.6 Lipase 401 H [facility] Social History household members: significant other and children Smoking Status: Never smoker alcohol intake: current Assessment & Plan Assessment and plan (1) Acute cholecystitis: Status: Acute Plan Plan discharge to home at this time on oral Augmentin with a prescription for [place] 5/325 count 30 no refills. Follow-up with Dr. Yi 1 week. Time-Based Coding :: [TOTAL MINUTES] spent with patient and on the chart (including review of chart, obtaining history, exam, reviewing outside data, placing orders, documenting exam and treatment plan, and counseling patient) on [DATE]. Quality VTE Deep Vein Thrombosis/Pulmonary Embolism Present on Admission: No PROFEE Photographic Enlarger Operator Document charge(s): No
--- NOTE | 2025-04-12 13:18 | PC.NURSE ---
Day shift: This RN noted redness around umbilical incision site this AM. Not itchy. Not warmer than other skin. Patient denies chills. Afebrile. Marked area of redness with sharpie. Rechecked area 4 hours later, redness unchange. Not spreading past marked area. Notified MD Berger and he went to assess when rounding on patient. He stated not overly concerning. Discharge orders obtained. Went over discharge instructions with patient. All questions answered, patient stated understanding. PIV x2 removed prior to discharge. All belongings with patient. PCT Lizette escorted patient via wheelchair to [facility] where he plans to scrap picker his prescriptions before his mom drives him home.
--- NOTE | 2025-04-16 07:57 | PM.DS.IH.1 ---
History of Present Illness History of Present Illness Chief complaint: back pain Discharge Providers Provider Date of admission: 04/08/25 20:34 Discharge Date: 04/12/25 Consults: 04/08/25 15:52 Consult to [employer] SUPERVISOR - Retail Tire Sales Manager Stat Comment: Retail Tire Sales Manager Consult needed for:: Other reason (Comment) Discharge provider: Lion Berger MD Summary Hospital Course Discharge Diagnosis: Gallstones and biliary pancreatitis Hospital Course: 39-year-old male admitted with gallstone pancreatitis. Course in the hospital: Patient was admitted. He was rendered NPO and provided with IV fluids and analgesics. Pancreatitis resolved. He subsequently underwent a laparoscopic cholecystectomy to good effect. His postoperative course was characterized by steady recovery. He tolerated liquids and subsequently a regular diet. When pain control was adequate, he was discharged to home in good condition with one-week follow-up. Exam Vital Signs (past 8 hours): Oxygen Delivery Method Nasal Cannula Oxygen Flow Rate 0 Objective Labs 04/11/25 18:00 04/11/25 18:00 [facility] Social History household members: significant other and children alcohol intake: current Discharge Plan Discharge Plan Patient Disposition: Home Provider Discharge Comment: No lifting greater than 40 lb for 2 weeks. Okay to remove the outer dressing and shower after 24 hours. Steri-Strips can get wet in the shower. Remove the Steri-Strips after 5-7 days. Discharge orders & Medications Prescriptions: New hydrocodone-acetaminophen 5-325 mg tablet 1 tab PO Q8H PRN (Reason: pain) Qty: 14 0RF oxycodone 10 mg tablet 10 mg PO Q6H PRN (Reason: pain) Qty: 30 0RF Continued clonazepam 2 mg tablet 2 mg PO DIRECTED sertraline 50 mg tablet 50 mg PO DAILY Visit Report/Discharge Packet Instructions: DI for Prescription Opioid Use, DI for Laparoscopic Cholecystectomy Stand Alone Forms: Patient Portal/API, Stroke Signs & Symptoms Quality VTE Deep Vein Thrombosis/Pulmonary Embolism Present on Admission: No IH PROFEE Charge Codes Discharge inpatient/observation: [id number]
--- NOTE | 2025-04-16 08:00 | P.DS_ITS ---
History of Present Illness History of Present Illness Chief complaint: back pain Discharge Providers Provider Date of admission: 04/08/25 20:34 Discharge Date: 04/12/25 Consults: 04/08/25 15:52 Consult to [facility] [place] - Electrical Products Sales Engineer Stat Comment: Electrical Products Sales Engineer Consult needed for:: Other reason (Comment) Discharge provider: Lion Berger MD Summary Hospital Course Discharge Diagnosis: Gallstones with biliary pancreatitis Hospital Course: Patient was admitted with biliary pancreatitis. Pancreatitis was allowed to resolve. The patient was subsequently subjected to a laparoscopic cholecystectomy which he tolerated well. Analgesia was initially problematic but subsequently his pain was well-controlled. He tolerated a regular diet and was discharged to home in good condition. He will follow up in 1 week. Status at Discharge Cognitive/behavioral status at discharge: oriented Functional status at discharge: independent ambulation Overall status at discharge: patient is back to baseline Time Spent with Patient Time spent discussing smoking cessation with patient: more than 10 minutes Exam Vital Signs (past 8 hours): Oxygen Delivery Method Nasal Cannula Oxygen Flow Rate 0 Narrative Exam Narrative: Lungs are clear to auscultation. Heart has a regular rate and rhythm with no murmur or gallop. Abdomen is soft nontender with normal bowel sounds. Objective Labs 04/11/25 18:00 04/11/25 18:00 [facility] Social History household members: significant other and children alcohol intake: current Discharge Assessment & Plan Assessment and Plan Assessment: Recovered from laparoscopic cholecystectomy. Plan of Treatment: Discharge to home. Discharge Plan Discharge Plan Patient Disposition: Home Provider Discharge Comment: No lifting greater than 40 lb for 2 weeks. Okay to remove the outer dressing and shower after 24 hours. Steri-Strips can get wet in the shower. Remove the Steri-Strips after 5-7 days. Discharge orders & Medications Prescriptions: New hydrocodone-acetaminophen 5-325 mg tablet 1 tab PO Q8H PRN (Reason: pain) Qty: 14 0RF oxycodone 10 mg tablet 10 mg PO Q6H PRN (Reason: pain) Qty: 30 0RF Continued clonazepam 2 mg tablet 2 mg PO DIRECTED sertraline 50 mg tablet 50 mg PO DAILY Visit Report/Discharge Packet Instructions: DI for Prescription Opioid Use, DI for Laparoscopic Cholecystectomy Stand Alone Forms: Patient Portal/API, Stroke Signs & Symptoms Quality VTE Deep Vein Thrombosis/Pulmonary Embolism Present on Admission: No IH PROFEE Charge Codes Discharge inpatient/observation: 73780 (Discharge to home)
--- NOTE | 2025-04-18 | PATH_ITS ---
[facility] Accession Number: [id number] No. of containers..01 Tissue . 01 Material submitted: . gallbladder - GALLBLADDER . 01 Diagnosis: GALLBLADDER, CHOLECYSTECTOMY: Chronic cholecystitis with cholelithiasis. MRV 04/12/2025 1514 Local . 01 Electronically signed: . Hailey Elizalde DO, Pathologist NPI- [id number] . 01 Gross description: . Received in formalin with two identifiers and gallbladder, is an intact gallbladder, 8.8 x 5.0 x 4.4 cm with a slightly roughened external surface. The cystic duct margin is inked blue and no pericystic lymph node is identified. The lumen contains dark green, thick, sludgy bile with a single yellow roughened calculus, 0.3 cm in greatest dimension. The mucosa is green and velvety with no yellow areas of discoloration, polyps, or lesions identified. The ruth average 0.2 cm thick. Charging Crane Operator sections to include the cystic duct margin and full thickness sections are submitted in A1. ([id number]) /MRV 04/12/2025 0745 Local . 01 Pathologist provided ICD-10: K80.00 . 01 CPT . 592427 Specimen Comment: A courtesy copy of this report has been sent to [phone] Specimen Comment: A duplicate report has been generated due to demographic updates. Performed at: [address] [id number] MD Ovi Smith MD Phone: [phone]
== END 2025-04-12 13:21 | disposition home or self-care (01) | DRG 419 ==
LOC: ED 19:03 → AC 20:35
PROVIDERS: Student in an Organized Health Care Education/Training Program; Surgery; Admitting Provider Surgery; Emergency Provider Family Medicine; Referring Provider Family Medicine; Visit Provider Surgery
PROC: 0FT44ZZ Resection of Gallbladder, Percutaneous Endoscopic Approach (ICD-10-PCS; CPT 47563; principal; 2025-04-10 14:45)
DX: K80.00 Calculus of gallbladder with acute cholecystitis without obstruction (principal); Z88.0 Allergy status to penicillin
CPT/HCPCS: 36415; 47562; 72131; 74177; 74183; 74300; 76705; 80053; 80305; 81003; 82150; 83690; 85025; 85610; 85730; 96374; 96376; 99222; 99231; 99284; A9579; J0690; J1100; J1171; J1885; J2175; J2250; J2270; J2405; J2704; J3010; J3410; J3490; Q9967

== ENCOUNTER → 2025-04-17 13:01 | Outpatient (CLI) | payer OTHER, SELFPAY ==
[2025-04-08 21:13] VITALS: BMI 34.4
[2025-04-17 13:23] LABS: Add Manual Diff / Slide Review NO; Basophils Absolute Auto 0 /uL (0-100); Basophils Percent Auto 0.5 % (0-2); Eosinophils Absolute Auto 200 /uL (0-450); Eosinophils Percent Auto 1.9 % (2-4); Hematocrit 51.2 % (41-53); Hemoglobin 17.4 g/dL (13.5-17.5); Lymphocytes Absolute Auto 1000 /uL (1100-4500); Lymphocytes Percent Auto 12.1 % (25-40); Mean Corpuscular Hemoglobin 30.2 PG (26-34); Mean Corpuscular Volume 88.9 fL (80-100); Monocytes Absolute Auto 800 /uL (0-900); Neutrophils Absolute Auto 6200 /uL (1500-7000); Neutrophils Percent Auto 75.5 % (50-75); Platelet Count 175 X10^3/uL (150-400); Red Blood Cell Count 5.76 X10^6/uL (4.5-5.9); Red Cell Distribution Width 13.9 % (11.6-14.8); White Blood Cell Count 8.2 X10^3/uL (4.5-11.0)
[2025-04-17 13:58] LABS: Alanine Aminotransferase 145 IU/L (<50); Albumin 4.9 g/dL (3.5-5.0); Albumin Globulin Ratio 1.9 (1.0-2.8); Alkaline Phosphatase 76 U/L (38-126); Aspartate Aminotransferase 57 IU/L (17-59); BUN Creatinine Ratio 19.4 (6-22); Bilirubin Total 0.8 mg/dL (0.2-1.3); Blood Urea Nitrogen 25 mg/dL (9-20); Calcium 9.4 mg/dL (8.4-10.2); Carbon Dioxide 24 mmol/L (22-32); Chloride 101 mmol/L (98-107); Estimated Glomerular Filt Rate > 60 mL/min (>60); Globulin 2.6 g/dL (1.7-4.1); Glucose 99 mg/dL (70-99); HEMOLYSIS < 15 (0-50); Potassium 4.7 mmol/L (3.4-5.1); Sodium 136 mmol/L (137-145); Total Protein 7.5 g/dL (6.3-8.2)
== END ==
PROVIDERS: PCP Physician Assistant; Referring Provider Surgery; Visit Provider Surgery
DX: G89.18 Other acute postprocedural pain (principal)
CPT/HCPCS: 36415; 80053; 85025

== ENCOUNTER 2025-04-18 16:31 | Emergency (ER) | payer OTHER, SELFPAY ==
[2025-04-17 09:25] VITALS: BMI 34.4
[2025-04-18] VITALS (10 sets, daily range): BP systolic 111–157; BP diastolic 76–96; PULSE 62–74; RESP 16; TEMP 36.6; O2SAT 94–98; BMI 32.8
[2025-04-18 17:18] LABS: Add Manual Diff / Slide Review NO; Basophils Absolute Auto 100 /uL (0-100); Basophils Percent Auto 0.8 % (0-2); Eosinophils Absolute Auto 200 /uL (0-450); Eosinophils Percent Auto 3.3 % (2-4); Hematocrit 48.5 % (41-53); Hemoglobin 16.5 g/dL (13.5-17.5); Lymphocytes Absolute Auto 1200 /uL (1100-4500); Lymphocytes Percent Auto 16.7 % (25-40); Mean Corpuscular HGB Conc 33.9 % (30-36); Mean Corpuscular Hemoglobin 30.1 PG (26-34); Mean Corpuscular Volume 88.8 fL (80-100); Monocytes Absolute Auto 900 /uL (0-900); Monocytes Percent Auto 12.5 % (3-14); Neutrophils Absolute Auto 4600 /uL (1500-7000); Neutrophils Percent Auto 66.7 % (50-75); Platelet Count 173 X10^3/uL (150-400); Red Blood Cell Count 5.46 X10^6/uL (4.5-5.9); White Blood Cell Count 6.9 X10^3/uL (4.5-11.0)
[2025-04-18 17:32] LABS: Alanine Aminotransferase 105 IU/L (<50); Albumin 4.9 g/dL (3.5-5.0); Albumin Globulin Ratio 1.6 (1.0-2.8); Alkaline Phosphatase 78 U/L (38-126); Aspartate Aminotransferase 33 IU/L (17-59); BUN Creatinine Ratio 21.6 (6-22); Bilirubin Total 0.7 mg/dL (0.2-1.3); Blood Urea Nitrogen 29 mg/dL (9-20); Calcium 9.4 mg/dL (8.4-10.2); Carbon Dioxide 28 mmol/L (22-32); Chloride 101 mmol/L (98-107); Estimated Glomerular Filt Rate > 60 mL/min (>60); Glucose 96 mg/dL (70-99); HEMOLYSIS < 15 (0-50); Lipase 49 U/L (23-300); Potassium 4.3 mmol/L (3.4-5.1); Sodium 138 mmol/L (137-145); Total Protein 7.9 g/dL (6.3-8.2)
[2025-04-18 18:39] LABS: Appearance Urine UA CLEAR; Bilirubin Urine UA NEGATIVE (NEGATIVE); Color Urine UA YELLOW; Glucose Urine UA NEGATIVE (Negative); Ketones Urine UA NEGATIVE (NEGATIVE); Leukocyte Esterase Urine UA NEGATIVE (NEGATIVE); Nitrite Urine UA NEGATIVE (Negative); Occult Blood Urine UA NEGATIVE (Negative); Protein Urine UA NEGATIVE (Negative); Urobilinogen Urine UA 0.2 E.U./dL (0.2)
[2025-04-18 18:57] LABS: Bacteria Urine None Seen; Culture Indicated Urine Cult Not Indicated; RBC Urine None Seen (0-5/HPF); Squamous Epithelial Cell Urine 0-1 /HPF (0-5/HPF); Urine Volume 10mL (spun); WBC Urine 0-1/HPF (0-5/HPF)
--- NOTE | 2025-04-18 19:14 | DI.CT.S_ITS ---
PROCEDURE: CT ABDOMEN PELVIS W CON INDICATIONS: abd pain, diarrhea, intermittent vomiting, recent cholecyste TECHNIQUE: After the administration of intravenous contrast, axial sections acquired from the lung bases to the pubic symphysis. Coronal and sagittal reformats were performed. For radiation dose reduction, the following was used: automated exposure control, adjustment of mA and/or kV according to patient size. COMPARISON: [facility], CT, CT ABDOMEN PELVIS W CON, 04/08/2025, 16:38. FINDINGS: Image quality: Diagnostic. Lower Chest: Mild bibasilar atelectasis. ABDOMEN: Liver: No solid mass. There is diffuse hypoattenuation of the liver parenchyma relative to the spleen compatible with hepatic steatosis. Gallbladder: Surgically absent Biliary ducts: No biliary dilation. Pancreas: No ductal dilation. Spleen: Size is within normal limits. Adrenal Glands: No adrenal nodules. Kidneys and Ureters: No hydronephrosis. No solid mass. No complex renal cystic lesion which requires follow up. Stomach and Bowel: Normal colonic caliber, without significant wall thickening. No evidence for small bowel obstruction or associated inflammatory changes. Status post appendectomy. Peritoneum: No abnormal intraperitoneal fluid. No free air. Ventral Wall: There is a fat-containing umbilical hernia without acute inflammation. Abdominal Nodes: No retroperitoneal or mesenteric adenopathy by size criteria. Vessels: Aorta and inferior vena cava are normal in size. PELVIS: Pelvic Organs: Unremarkable. Bladder: No bladder wall thickening, accounting for underdistention. Pelvic Nodes: No enlarged lymph nodes. Miscellaneous: Fat containing bilateral inguinal hernias without acute inflammation. Bones: No aggressive osseous abnormality. Visualized osseous structures appear intact without acute fracture or focal destructive lesion. No acute compression fractures of the imaged spine. IMPRESSION: Status post interval cholecystectomy. CT abdomen and pelvis without acute abnormalities. Postsurgical changes of prior appendectomy. Hepatic steatosis. Dictated by: Ankur Buitrago M.D. on 04/18/2025 at 20:32 Approved by: Ankur Buitrago M.D. on 04/18/2025 at 20:38
[2025-04-18] MEDS: ONDANSETRON 4 MG/2 ML INJ IV (19:19)
[2025-04-18] MEDS: SODIUM CHLORIDE 0.9% 1,000 ML 1000 ML IV (19:20)
[2025-04-18] MEDS: MORPHINE 4 MG/ML INJ IV (19:20)
[2025-04-18] MEDS: HYDROMORPHONE 1 MG INJ IV (20:22)
--- NOTE | 2025-04-18 21:13 | ED_ITS ---
HPI - Abdominal Pain General Chief Complaint: Abdominal Pain Stated Complaint: lower abd+back pain post op x 1 week Time Seen by Provider: 04/18/25 19:14 Source: patient, RN notes reviewed and old records reviewed Mode of arrival: Ambulatory Limitations: no limitations History of Present Illness HPI narrative: 39-year-old male with a history of chronic back pain, cholecystectomy on 04/10 has increased pain in the right back vomiting and some diarrhea. Patient presents as he states it is worsening. Patient notes increased pain in the right upper quadrant but also increased low back pain which radiates a little bit to his right thigh and a little bit of paresthesias in the right leg at times. No saddle anesthesia. No weakness. He notes he was had back issues on and off in the past was seen here in March for them prior to his cholecystectomy. Patient states no fevers at home. He was had some nausea. Did not throw up today. He was had diarrhea 3 or 4 times daily no black or bloody stools. Patient states abdominal pain seems to be more localized to the right side. He states incisions the umbilical 1 he thinks might be a little bit red but otherwise appear to be healing okay. He denies any new urinary symptoms. Does note no rash or skin changes. He has been taking oxycodone 10 mg every 8 hours, acetaminophen 500 mg and ibuprofen 800 mg alternating every [address] Yi yesterday. He has not seen anyone for his back but has had issues he states in the past. He has a lumbar spine MRI ordered for later this month. Related Data Home Medications ?Medication ?Instructions ?Recorded ?Confirmed clonazepam 2 mg tablet 2 mg PO DIRECTED 04/08/25 04/17/25 sertraline 50 mg tablet 50 mg PO DAILY 04/08/2503/08 Previous Rx's ?Medication ?Instructions ?Recorded hydrocodone 5 mg-acetaminophen 325 1 tab PO Q8H PRN pa in #14 tabs 04/10/25 mg tablet oxycodone 10 mg tablet 10 mg PO Q6H PRN pain #30 ta bs 04/12/25 oxycodone 10 mg tablet 10 mg PO Q8H PRN pain #14 ta bs 04/17/25 meloxicam 7.5 mg tablet 7.5 mg PO DAILY PRN pain #10 tabs 04/18/25 oxycodone 10 mg tablet 10 mg PO Q6H PRN pain #10 ta bs 04/18/25 Allergies Allergy/AdvReac Type Severity Reaction Status Date / Time Penicillins AdvReac Hives Verified 04/17/25 13:30 Review of Systems Review of Systems ROS Unobtainable: All systems reviewed & are unremarkable except as noted in HPI and below Patient History Social History household members: significant other and children alcohol intake: current Exam Narrative Exam Narrative: GENERAL: Alert and oriented x three, male in moderate distress HEENT: Head normocephalic, atraumatic, EOMI, pupils reactive, face symmetric, moist mucous membranes NECK: Supple, full range of motion CARDIOVASCULAR: Regular rate and rhythm without murmurs, rubs or gallops. RESPIRATORY: Breath sounds equal bilaterally, no wheezes rales or rhonchi. ABDOMEN: Soft, mild generalized tenderness. Normoactive bowel sounds all 4 quadrants. No guarding or rebound, rigidity, no mass, patient has healing incisions with no erythema, no discharge no dehiscence. : No CVA tenderness BACK: No cervical, thoracic or lumbar vertebral point tenderness. Patient has mildly decreased range of motion. Patient's gait is [antalgic/normal]. No saddle anesthesia. Rectal exam is deferred. Muscle strength is 5/5 in lower extremities, DTRs are 2/4 and lower extremities. Dorsalis pedis and tibialis pulses are 2+ and lower extremities. Sensation is intact in the lower extremities. EXTREMITIES: Normal range of motion, no clubbing or edema. Neurovascularly intact NEUROLOGICAL: Cranial nerves II through XII grossly intact. Moving all extremities SKIN: Warm, dry, no petechiae, no rashes or lesions. Initial Vital Signs Initial Vital Signs: Vital Signs Temperature 97.9 F 04/18/25 16:56 Pulse Rate 74 04/18/25 16:56 Respiratory Rate 16 04/18/25 16:56 Blood Pressure 157/94 H 04/18/25 16:56 Pulse Oximetry 97 04/18/25 16:56 Oxygen Delivery Method Room Air 04/18/25 16:56 Course Orders Ordered: Discontinued Medications Hydromorphone HCl (Hydromorphone 1 Mg Inj) 1 mg IV NOW ONE Stop: 04/18/25 20:21 Last Admin: 04/18/25 20:22 Dose: 1 mg Documented By: ELVIE Hydromorphone HCl (Hydromorphone 0.5 Mg Inj) 0.5 mg IV NOW ONE Stop: 04/18/25 21:30 Last Admin: 04/18/25 21:45 Dose: 0.5 mg Documented By: Sodium Chloride (Normal Saline 0.9%) 1,000 mls @ 1,000 mls/hr IV BOLUS ONE Stop: 04/18/25 20:13 Last Infusion: 04/18/25 20:18 Dose: Infused Documented By: Admin: 04/18/25 19:20 Dose: 1,000 mls/hr Documented By: ELVIE Acetaminophen (Ofirmev) 1,000 mg in 100 mls @ 400 mls/hr IV NOW ONE Stop: 04/18/25 21:25 Last Infusion: 04/18/25 21:34 Dose: Infused Documented By: Admin: 04/18/25 21:16 Dose: 400 mls/hr Documented By: ELVIE Morphine Sulfate (Morphine 4 Mg/Ml Inj) 4 mg IV NOW ONE Stop: 04/18/25 19:16 Last Admin: 04/18/25 19:20 Dose: 4 mg Documented By: ELVIE Ondansetron HCl (Ondansetron 4 Mg/2 Ml Inj) 4 mg IV NOW PRN PRN Reason: Nausea And Vomiting Last Admin: 04/18/25 19:19 Dose: 4 mg Documented By: ELVIE Ondansetron HCl (Ondansetron 4 Mg Odt) 4 mg PO NOW PRN PRN Reason: Nausea And Vomiting Ondansetron HCl (Ondansetron 4 Mg Odt Prepack) 1 bottle MISC DIRECTED ONE Stop: 04/18/25 21:35 Last Admin: 04/18/25 21:45 Dose: 1 bottle Documented By: Vital Signs Vital signs: Vital Signs - 8 hr 04/18/25 16:56 04/18/25 19:40 04/18/25 20:02 Temperature 97.9 F Pulse Rate 74 66 65 Respiratory Rate 16 Blood Pressure 157/94 H Pulse Oximetry 97 95 98 Oxygen Delivery Method Room Air 04/18/25 20:04 04/18/25 20:04 Temperature Pulse Rate 62 Respiratory Rate Blood Pressure 121/94 H Pulse Oximetry 98 Oxygen Delivery Method MDM - Abdominal Pain Lab Data 04/18/25 17:11 04/18/25 17:11 Labs: Lab Results 04/18/25 04/18/25 Range/Units 17:03 17:11 WBC 6.9 (4.5-11.0) X10^3/uL RBC 5.46 (4.5-5.9) X10^6/uL Hgb 16.5 (13.5-17.5) g/dL Hct 48.5 (41-53) % MCV 88.8 (80-100) fL MCH 30.1 (26-34) PG MCHC 33.9 (30-36) % RDW 14.0 (11.6-14.8) % Plt Count 173 (150-400) X10^3/uL Neut % (Auto) 66.7 (50-75) % Lymph % (Auto) 16.7 L (25-40) % [place] % (Auto) 12.5 (3-14) % Eos % (Auto) 3.3 (2-4) % Baso % (Auto) 0.8 (0-2) % Neut # (Auto) 4600 (9562-9363) /uL Lymph # (Auto) 1200 (2729-3222) /uL [place] # (Auto) 900 (0-900) /uL Eos # (Auto) 200 (0-450) /uL Baso # (Auto) 100 (0-100) /uL Sodium 138 (137-145) mmol/L Potassium 4.3 (3.4-5.1) mmol/L Chloride 101 (98-107) mmol/L Carbon Dioxide 28 (22-32) mmol/L BUN 29 H (9-20) mg/dL Creatinine 1.34 H (0.66-1.25) mg/dL Estimated GFR > 60 (>60) mL/min BUN/Creatinine Ratio 21.6 (6-22) Glucose 96 (70-99) mg/dL Calcium 9.4 (8.4-10.2) mg/dL Total Bilirubin 0.7 (0.2-1.3) mg/dL AST 33 (17-59) IU/L ALT 105 H (<50) IU/L Alkaline Phosphatase 78 (38-126) U/L Total Protein 7.9 (6.3-8.2) g/dL Albumin 4.9 (3.5-5.0) g/dL Globulin 3.0 (1.7-4.1) g/dL Albumin/Globulin Ratio 1.6 (1.0-2.8) Lipase 49 D (23-300) U/L Urine Color Yellow Urine Appearance Clear Urine pH 6.0 (4.5-8.0) Ur Specific [place] 1.010 (1.000-1.035) Urine Protein Negative (Negative) Urine Glucose (UA) Negative (Negative) g/dL Urine Ketones Negative (NEGATIVE) Urine Occult Blood Negative (Negative) Urine Nitrate Negative (Negative) Urine Bilirubin Negative (NEGATIVE) Urine Urobilinogen 0.2 (0.2) E.U./dL Ur Leukocyte Esterase Negative (NEGATIVE) Urine RBC None seen (0-5/HPF) Urine WBC 0-1/hpf (0-5/HPF) Ur Squamous Epith Cells 0-1 /hpf (0-5/HPF) Urine Bacteria None seen (None) Ur Culture Indicated? Cult not indicated Vol Urine Centrifuged 10ml (spun) MDM Narrative Medical decision making narrative: Labs show normal white count hemoglobin and platelets, electrolytes are normal BUN 29 creatinine is 1.34 ALT is 105 AST is 33 with a bilirubin of 0.7 lipase is 49. UA shows 1 white cell 1 squamous no other changes. Patient had CT abdomen pelvis with mild bibasilar atelectasis. Diffuse hypotension liver parenchymal relatives spleen compatible with hepatic steatosis. No evidence of bowel obstruction or associated inflammatory changes fat containing umbilical hernia without acute inflammation. Status post interval cholecystectomy. CT abdomen pelvis without acute abnormalities. Postsurgical changes of prior appendectomy. Hepatic steatosis. Patient was afebrile, no tachycardia no hypotension appropriate O2 sat normal vitals. Patient had fluids, Zofran, creatinine was slightly elevated so was not given any Toradol. Had morphine and Dilaudid still uncomfortable. No signs of sepsis or acute intra-abdominal process at this time patient is having pain status post gallstone and biliary pancreatitis with cholecystectomy. Discussed with the patient need for follow up with General surgery. I reviewed findings he also has follow up with L-spine MRI, no changes or symptoms today than necessitate emergent MRI or neurosurgical consultation. Discussed can adjust his medications we will change his ibuprofen to meloxicam and have him increase his Tylenol as well as can take oxycodone a little bit more frequently but encouraged him to follow up with General surgery. If persistent diarrhea did recommend that he have testing of the stool but has not give him a sample here today. Discharge Plan Departure Patient Disposition: Home Clinical Impression: Postoperative pain, Status post cholecystectomy, Low back pain Activity Restrictions/Additional Instructions: Please follow up with General surgery, call 1st thing in the morning to follow up. If needed you can take Zofran 1 tablet every 6 hours. Take medication as prescribed, you can take oxycodone 1-2 tablets every 6 hours as needed. Instead of ibuprofen take meloxicam 1 tablet every 12 hours. Do not take other NSAIDs with this medication such as Aleve, naproxen or ibuprofen. You can take acetaminophen every 6 hours as needed. You do not have to alternate the acetaminophen meloxicam but can take them together. Prescription sent to Please return for fevers, worsening abdominal back or flank pain, persistent vomiting, black or bloody stools, passing out or other new or concerning changes. Prescriptions: New meloxicam 7.5 mg tablet 7.5 mg PO DAILY PRN (Reason: pain) Qty: 10 0RF oxycodone 10 mg tablet 10 mg PO Q6H PRN (Reason: pain) Qty: 10 0RF No Action oxycodone 10 mg tablet 10 mg PO Q8H MDD 3 PRN (Reason: pain) Qty: 14 0RF clonazepam 2 mg tablet 2 mg PO DIRECTED sertraline 50 mg tablet 50 mg PO DAILY hydrocodone-acetaminophen 5-325 mg tablet 1 tab PO Q8H PRN (Reason: pain) Qty: 14 0RF oxycodone 10 mg tablet 10 mg PO Q6H PRN (Reason: pain) Qty: 30 0RF Referrals: Elio Yi MD [Physician, General Surgery] Jurgen Lerma PA-C [Primary Care Provider, Medical] Stand Alone Forms: Patient Portal/API
[2025-04-18] MEDS: ACETAMINOPHEN IV 1,000 MG/100 ML VIAL 400 MG IV (21:16)
[2025-04-18] MEDS: HYDROMORPHONE 0.5 MG INJ IV (21:45)
[2025-04-18] MEDS: ONDANSETRON 4 MG ODT PREPACK 1 BOTTLE MISC (21:45)
== END 2025-04-18 21:49 | disposition home or self-care (01) ==
PROVIDERS: Emergency Medicine; Emergency Provider Emergency Medicine; PCP Physician Assistant
DX: G89.18 Other acute postprocedural pain (principal); M54.50 Low back pain, unspecified
CPT/HCPCS: 74177; 80053; 81001; 83690; 85025; 96361; 96365; 96375; 96376; 99284; J0131; J1171; J2270; J2405; Q9967

== ENCOUNTER 2025-04-21 17:48 | Emergency (ER) | payer OTHER, SELFPAY ==
[2025-04-17 09:25] VITALS: BMI 34.4
--- NOTE | 2025-04-21 18:34 | ED_ITS ---
HPI - General Adult General Chief complaint: Head Injury Stated complaint: fell, altered mental status, blood in rt ear Time Seen by Provider: 04/21/25 18:34 History of Present Illness HPI narrative: 39-year-old male status post recent cholecystectomy, history of remote L5-S1 discs injury, ongoing abdominal pain and back pain, recent abdominal imaging. Today within an hour prior to arrival tripped at home, fell forward, struck his left forehead, lost consciousness for a few minutes. No shaking seizure activity. No incontinence. Has large goose egg left forehead area. Has increasing headache pain. Also has posterior neck pain. As well as increased low back pain and increased abdominal pain. Related Data Home Medications ?Medication ?Instructions ?Recorded ?Confirmed clonazepam 2 mg tablet 2 mg PO DIRECTED 04/08/25 04/17/25 sertraline 50 mg tablet 50 mg PO DAILY 04/08/2503/08 Previous Rx's ?Medication ?Instructions ?Recorded hydrocodone 5 mg-acetaminophen 325 1 tab PO Q8H PRN pa in #14 tabs 04/10/25 mg tablet oxycodone 10 mg tablet 10 mg PO Q6H PRN pain #30 ta bs 04/12/25 oxycodone 10 mg tablet 10 mg PO Q8H PRN pain #14 ta bs 04/17/25 meloxicam 7.5 mg tablet 7.5 mg PO DAILY PRN pain #10 tabs 04/18/25 oxycodone 10 mg tablet 10 mg PO Q6H PRN pain #10 ta bs 04/18/25 amoxicillin 875 mg-potassium 1 tab PO BID #20 tabs 07/08 clavulanate 125 mg tablet oxycodone 10 mg tablet 10 mg PO TID PRN pain #10 ta bs 04/21/25 Allergies Allergy/AdvReac Type Severity Reaction Status Date / Time Penicillins AdvReac Hives Verified 04/21/25 18:36 Patient History Social History household members: significant other and children Smoking Status: Never smoker alcohol intake: current Exam Narrative Exam Narrative: GENERAL: Well-developed patient, in mild distress. C-collar in place from triage. HEAD: Atraumatic. Normocephalic. Large 4 cm diameter hematoma left forehead. EYES: Pupils equal round and reactive. Extraocular motions intact. No scleral icterus. No injection or drainage. ENT: Nose without bleeding, purulent drainage. Throat without erythema, tonsillar hypertrophy or exudate. Airway patent. NECK: Trachea midline. Non tender CARDIOVASCULAR: Regular rate and rhythm without murmurs, gallops, or rubs. RESPIRATORY: Clear to auscultation. Breath sounds equal bilaterally. No wheezes, rales, or rhonchi. GASTROINTESTINAL: Abdomen soft, non-tender, nondistended. Well-healed laparoscopic scar sites, no redness or erythema. Nondistended. No guarding or rebound tenderness. EXTREMITIES: No edema or joint tenderness. BACK: Nontender without deformity or crepitance. No flank tenderness. NEURO: AOx3. Motor functions grossly nonfocal. SKIN: No rash or erythema of visible areas Initial Vital Signs Initial Vital Signs: Vital Signs Temperature 97.6 F 04/21/25 18:35 Pulse Rate 90 04/21/25 18:35 Respiratory Rate 17 04/21/25 18:35 Blood Pressure 124/87 04/21/25 18:35 Pulse Oximetry 95 04/21/25 18:35 Oxygen Delivery Method Room Air 04/21/25 18:35 Course Orders Ordered: ED Orders 04/21/25 18:33 CT facial bones wo con Stat CT head/brain wo con Stat CBC Auto Diff [Complete Blood Count AUTO DIFF] Stat CMP [Comprehensive Metabolic Panel] Stat Lipase Stat Prothrombin Time INR Stat 04/21/25 18:34 CT cervical spine wo con Stat 04/21/25 18:42 CT abdomen pelvis w con Stat XR chest 1V Stat Discontinued Medications Amoxicillin/Clavulanate Potassium (Amoxicillin/Clav 875/125 Mg) 1 tab PO NOW ONE Stop: 04/21/25 19:53 Last Admin: 04/21/25 20:11 Dose: 1 tab Documented By: ELVIE Hydromorphone HCl (Hydromorphone 0.5 Mg Inj) 0.5 mg IV NOW ONE Stop: 04/21/25 18:42 Last Admin: 04/21/25 18:45 Dose: 0.5 mg Documented By: ELVIE Ketorolac Tromethamine (Ketorolac 30 Mg/Ml Vial) 15 mg IV NOW ONE Stop: 04/21/25 18:42 Last Admin: 04/21/25 18:45 Dose: 15 mg Documented By: ELVIE Methocarbamol (Methocarbamol 500 Mg Tablet) 500 mg PO NOW ONE Stop: 04/21/25 19:52 Last Admin: 04/21/25 20:11 Dose: 500 mg Documented By: ELVIE Ondansetron HCl (Ondansetron 4 Mg/2 Ml Inj) 4 mg IV NOW ONE Stop: 04/21/25 18:42 Last Admin: 04/21/25 18:45 Dose: 4 mg Documented By: ELVIE Oxycodone HCl (Oxycodone Ir 5 Mg Tablet) 5 mg PO NOW ONE Stop: 04/21/25 19:52 Last Admin: 04/21/25 20:11 Dose: 5 mg Documented By: ELVIE Vital Signs Vital signs: Vital Signs - 8 hr 04/21/25 19:48 04/21/25 19:54 04/21/25 20:00 Pulse Rate 84 78 Respiratory Rate 18 Blood Pressure 131/85 Pulse Oximetry 95 94 Oxygen Delivery Method 04/21/25 20:01 04/21/25 20:01 Pulse Rate 75 Respiratory Rate Blood Pressure 123/72 Pulse Oximetry 94 Oxygen Delivery Method Room Air Medical Decision Making Lab Data Lab results reviewed: Yes I reviewed the patient's lab results. Lab results narrative: White blood cell count 6800, hemoglobin 16.1, platelets adequate. Glucose 114. BUN 26 with a creatinine 1.22. Serum CO2 normal. Electrolytes unremarkable. Slight ALT elevation, otherwise liver functions normal. Lipase normal. 04/21/25 18:33 04/21/25 18:33 Labs: Lab Results 04/21/25 Range/Units 18:33 WBC 6.8 (4.5-11.0) X10^3/uL RBC 5.49 (4.5-5.9) X10^6/uL Hgb 16.5 (13.5-17.5) g/dL Hct 48.9 (41-53) % MCV 89.1 (80-100) fL MCH 30.0 (26-34) PG MCHC 33.7 (30-36) % RDW 14.1 (11.6-14.8) % Plt Count 168 (150-400) X10^3/uL Neut % (Auto) 69.8 (50-75) % Lymph % (Auto) 16.4 L (25-40) % Kleberg % (Auto) 11.7 (3-14) % Eos % (Auto) 1.4 L (2-4) % Baso % (Auto) 0.7 (0-2) % Neut # (Auto) 4800 (2852-3461) /uL Lymph # (Auto) 1100 (5758-5606) /uL Kleberg # (Auto) 800 (0-900) /uL Eos # (Auto) 100 (0-450) /uL Baso # (Auto) 0 (0-100) /uL PT 11.5 (9.4-12.5) SECONDS INR 1.0 (0.9-1.3) Sodium 139 (137-145) mmol/L Potassium 4.3 (3.4-5.1) mmol/L Chloride 104 (98-107) mmol/L Carbon Dioxide 26 (22-32) mmol/L BUN 26 H (9-20) mg/dL Creatinine 1.22 (0.66-1.25) mg/dL Estimated GFR > 60 (>60) mL/min BUN/Creatinine Ratio 21.3 (6-22) Glucose 114 H (70-99) mg/dL Calcium 9.5 (8.4-10.2) mg/dL Total Bilirubin 0.6 (0.2-1.3) mg/dL AST 40 (17-59) IU/L ALT 87 H (<50) IU/L Alkaline Phosphatase 68 (38-126) U/L Total Protein 7.9 (6.3-8.2) g/dL Albumin 4.8 (3.5-5.0) g/dL Globulin 3.1 (1.7-4.1) g/dL Albumin/Globulin Ratio 1.5 (1.0-2.8) Lipase 46 (23-300) U/L Imaging Data Chest x-ray: Radiologist's Impression: [address] [address] XRay Report Signed Patient: Corey Bean MR#: [id number] : 1985 Acct:[id number] Age/Sex: 39 / M Date of Service: 04/21/25 Loc: ED Accession Number: [id number] Procedure: XR chest 1V Ordering Provider: Bryson Skaggs MD PROCEDURE: XR CHEST 1V INDICATIONS: back pain after fall, recent GB surgery TECHNIQUE: One view of the chest was acquired. COMPARISON: None. FINDINGS: Surgical changes and devices: None. Lungs and pleura: Lungs are clear. No pleural effusions or pneumothorax. Mediastinum: Mediastinal contours appear normal. Heart size is normal. Bones and chest wall: No suspicious bony lesions. Overlying soft tissues appear unremarkable. IMPRESSION: No acute cardiopulmonary abnormality is seen. Approved by: Kolton Ponce M.D. on 04/21/2025 at 19:31 CT scan - head: Radiologist's Impression: [address] [address] [address] Scan Report Signed Patient: Corey Bean MR#: [id number] : 1985 Acct:[id number] Age/Sex: 39 / M Date of Service: 04/21/25 Loc: ED Accession Number: [id number] Procedure: CT head/brain wo con Ordering Provider: Bryson Skaggs MD PROCEDURE: CT HEAD/BRAIN WO CON INDICATIONS: fall TECHNIQUE: Noncontrast 4.5 mm thick angled axial sections acquired from the foramen magnum to the vertex, with coronal and sagittal reformats. For radiation dose reduction, the following was used: automated exposure control, adjustment of mA and/or kV according to patient size. COMPARISON: None. FINDINGS: Image quality: Diagnostic. CSF spaces: Basal cisterns are patent. No extra-axial fluid collections. Ventricles are normal in size and shape. Brain: No midline shift. No intracranial mass effect or hemorrhage. Bowles- white matter interface is normal. Skull and face: Calvarium and visualized facial bones are intact, without suspicious lesions. Sinuses: Air-fluid level is seen in the right maxillary sinus. No sinus wall fracture is seen. Mucous retention cyst in the left maxillary sinus. The remaining visualized paranasal sinuses and the mastoid air cells are clear. IMPRESSION: 1. No acute intracranial pathology. 2. Air-fluid level in the right maxillary sinus without a sinus wall fracture identified, likely related to sinusitis. Approved by: Kolton Ponce M.D. on 04/21/2025 at 19:25 CT face: Radiologist's Impression: [address] [address] [address] Scan Report Signed Patient: Corey Bean MR#: [id number] : 1985 Acct:[id number] Age/Sex: 39 / M Date of Service: 04/21/25 Loc: ED Accession Number: [id number] Procedure: CT facial bones wo con Ordering Provider: Bryson Skaggs MD PROCEDURE: CT FACIAL BONES WO CON INDICATIONS: fall TECHNIQUE: Noncontrast 2.5 mm thick axial images acquired from the mandible through the frontal sinuses, with coronal and sagittal reformatting. For radiation dose reduction, the following was used: automated exposure control, adjustment of mA and/or kV according to patient size. COMPARISON: None. FINDINGS: Image quality: Excellent. Bones and teeth: Orbital ruth are intact. Sinus ruth show no fracture or deformity. Nasal bones and septum are intact. Visualized portions of the mandible demonstrate no fractures or subluxation. Zygomatic arches are intact. Pterygoid plates are intact. Visualized portions of the skull base and auditory canals are intact. Sinuses: Partial opacification of the right maxillary sinus with air-fluid level, compatible with sinusitis. No sinus wall fracture is seen. Mucous retention cyst in the left maxillary sinus. The remaining visualized paranasal sinuses and the mastoid air cells are clear. Soft tissues: Mild left frontal scalp edema. No enlarged lymph nodes. No soft tissue lacerations or debris. Vascular: Visualized vascular structures appear normal in the absence of contrast. Bony vascular foramina and canals are intact. IMPRESSION: No acute facial bone fracture. Approved by: Kolton Ponce M.D. on 04/21/2025 at 19:29 CT - cervical spine: Radiologist's Impression: [place] [address] CT Scan Report Signed Patient: Corey Bean MR#: [id number] : 1985 Acct:[id number] Age/Sex: 39 / M Date of Service: 04/21/25 Loc: ED Accession Number: [id number] Procedure: CT cervical spine wo con Ordering Provider: Bryson Skaggs MD PROCEDURE: CT CERVICAL SPINE WO CON INDICATIONS: fall TECHNIQUE: Noncontrast 3 mm thick sections acquired from the skull base to the T4 level. Sagittal and coronal reformats were then constructed. For radiation dose reduction, the following was used: automated exposure control, adjustment of mA and/or kV according to patient size. COMPARISON: [facility], CT, CT CERVICAL SPINE WO CON, 06/21/2016, 17:18. FINDINGS: Image quality: Excellent. Bones: No acute fractures or dislocations. Visualized superior ribs are intact. Soft tissues: Prevertebral soft tissues are normal in thickness. No paravertebral hematomas. No apical pneumothoraces. IMPRESSION: No acute displaced fracture or traumatic subluxation. Approved by: Kolton Ponce M.D. on 04/21/2025 at 19:30 CT scan - abdomen/pelvis: Radiologist's Impression: [address] [address] [address] Scan Report Signed Patient: Corey Bean MR#: [id number] : 1985 Acct:[id number] Age/Sex: 39 / M Date of Service: 04/21/25 Loc: ED Accession Number: [id number] Procedure: CT abdomen pelvis w con Ordering Provider: Bryson Skaggs MD PROCEDURE: CT ABDOMEN PELVIS W CON INDICATIONS: inc back pain abd pain after new fall TECHNIQUE: After the administration of intravenous contrast, axial sections acquired from the lung bases to the pubic symphysis. Coronal and sagittal reformats were performed. For radiation dose reduction, the following was used: automated exposure control, adjustment of mA and/or kV according to patient size. COMPARISON: [facility], CT, CT ABDOMEN PELVIS W CON, 04/18/2025, 19:51. [facility], CT, CT ABDOMEN PELVIS W CON, 04/08/2025, 16:38. FINDINGS: Image quality: Diagnostic. Lower Chest: No significant findings. ABDOMEN: Liver: No solid mass. Gallbladder: Status post cholecystectomy. Biliary ducts: No biliary dilation. Pancreas: No ductal dilation. Spleen: Size is within normal limits. Adrenal Glands: No adrenal nodules. Kidneys and Ureters: No hydronephrosis. No solid mass. No complex renal cystic lesion which requires follow up. Stomach and Bowel: Normal colonic caliber, without significant wall thickening. Status post appendectomy. Small bowel loops and stomach are unremarkable. Peritoneum: No abnormal intraperitoneal fluid. No free air. Ventral Wall: Fat containing periumbilical hernia. Abdominal Nodes: No retroperitoneal or mesenteric adenopathy by size criteria. Vessels: Aorta and inferior vena cava are normal in size. PELVIS: Pelvic Organs: Unremarkable. Bladder: No bladder wall thickening, accounting for underdistention. Pelvic Nodes: No enlarged lymph nodes. Miscellaneous: Small fat containing inguinal hernias. Bones: No aggressive osseous abnormality. IMPRESSION: No acute traumatic findings in the abdomen or pelvis. Approved by: Kolton Ponce M.D. on 04/21/2025 at 19:34 MDM Narrative Medical decision making narrative: 39-year-old male with chronic low back pain, recent laparoscopic cholecystectomy, seen here for abdominal pain and back pain, CT abdominal pelvic imaging no acute changes. Had ground level fall tripping today, with increased low back pain, increased abdominal pain, large left forehead contusion, had loss of consciousness for multiple minutes, has neck pain, placed in C-collar at triage. CT head, face, C-spine. Chest x-ray. CT abdomen and pelvis. IV Dilaudid, IV Toradol. Keep NPO. Lab studies: White blood cell count 6800, hemoglobin 16.1, platelets adequate. Glucose 114. BUN 26 with a creatinine 1.22. Serum CO2 normal. Electrolytes unremarkable. Slight ALT elevation, otherwise liver functions normal. Lipase normal. Chest x-ray, no acute changes. See radiology report. CT head, no acute changes brain or bony changes. Air-fluid level right maxillary sinus without maxillary fractures, possible sinusitis. See radiology report. CT facial bones, no acute bony changes. See radiology report. CT cervical spine, no acute bony changes. See radiology report. CT abdomen and pelvis, no acute changes. See radiology report. Taken out of C-collar in sitting position of comfort by me, no midline or paraspinal muscular tenderness. Able to move neck [id number] without difficulty. Clinically cleared, collar not reapplied, removed. Oral Augmentin given for possible right-sided maxillary sinusitis. Prescription sent to his pharmacy of for course of antibiotics. Muscle relaxant Robaxin given. Prescription sent to his pharmacy. Discharged home with family. Follow up with General surgery for postoperative gallbladder surgery for recheck as planned. Follow up with PCP advised next couple days to reassess acute injuries. Discharge Plan Departure Patient Disposition: Home Clinical Impression: Fall from ground level, Contusion of forehead, Low back pain, Abdominal pain, Right maxillary sinusitis, Muscle strain of right scapular region Activity Restrictions/Additional Instructions: Recent gallbladder surgery, ongoing low back pain, new fall tripping today, with left forehead large contusion. Chest x-ray unremarkable. Initial cervical collar at triage that was removed after imaging. CT head/brain, facial bones, cervical spine of the neck, abdomen, pelvis imaging was performed. CT images showed right-sided maxillary sinus infection like changes, otherwise negative. Chest x-ray also performed, was negative. On clinical exam you seemed to have some shoulder discomfort that felt better out of the collar, on examination with some tenderness to the right superior rhomboid muscles around the scapula/shoulder blade, likely strain. Oral dose of methocarbamol given, you have a supply at home for further muscle relaxants dosing. Given oral dose of oxycodone, further prescription sent to your pharmacy. Given oral dose of Augmentin antibiotic, history of penicillin allergy, however you have had amoxicillin before with no problems, this is amoxicillin with clavulanic acid to antibiotics in his formulation. Take antibiotics for sinus infection found on imaging. Recheck symptoms with your regular doctor in the next couple of days. Return to this/nearest emergency department for any change worsening symptoms or any concerns prior. Prescriptions: New amoxicillin-pot clavulanate 875-125 mg tablet 1 tab PO BID Qty: 20 0RF oxycodone 10 mg tablet 10 mg PO TID PRN (Reason: pain) Qty: 10 0RF No Action oxycodone 10 mg tablet 10 mg PO Q8H MDD 3 PRN (Reason: pain) Qty: 14 0RF clonazepam 2 mg tablet 2 mg PO DIRECTED sertraline 50 mg tablet 50 mg PO DAILY hydrocodone-acetaminophen 5-325 mg tablet 1 tab PO Q8H PRN (Reason: pain) Qty: 14 0RF oxycodone 10 mg tablet 10 mg PO Q6H PRN (Reason: pain) Qty: 30 0RF meloxicam 7.5 mg tablet 7.5 mg PO DAILY PRN (Reason: pain) Qty: 10 0RF oxycodone 10 mg tablet 10 mg PO Q6H PRN (Reason: pain) Qty: 10 0RF Referrals: Jurgen Lerma PA-C [Primary Care Provider, Medical] Stand Alone Forms: Patient Portal/API
[2025-04-21 18:35] VITALS: BP 124/87; PULSE 90; RESP 17; TEMP 36.4; O2SAT 95; BMI 32.8
--- NOTE | 2025-04-21 18:42 | DI.RAD.S_ITS ---
PROCEDURE: XR CHEST 1V INDICATIONS: back pain after fall, recent GB surgery TECHNIQUE: One view of the chest was acquired. COMPARISON: None. FINDINGS: Surgical changes and devices: None. Lungs and pleura: Lungs are clear. No pleural effusions or pneumothorax. Mediastinum: Mediastinal contours appear normal. Heart size is normal. Bones and chest wall: No suspicious bony lesions. Overlying soft tissues appear unremarkable. IMPRESSION: No acute cardiopulmonary abnormality is seen. Approved by: Kolton Ponce M.D. on 04/21/2025 at 19:31
--- NOTE | 2025-04-21 18:42 | DI.CT.S_ITS ---
PROCEDURE: CT ABDOMEN PELVIS W CON INDICATIONS: inc back pain abd pain after new fall TECHNIQUE: After the administration of intravenous contrast, axial sections acquired from the lung bases to the pubic symphysis. Coronal and sagittal reformats were performed. For radiation dose reduction, the following was used: automated exposure control, adjustment of mA and/or kV according to patient size. COMPARISON: [facility], CT, CT ABDOMEN PELVIS W CON, 04/18/2025, 19:51. [facility], CT, CT ABDOMEN PELVIS W CON, 04/08/2025, 16:38. FINDINGS: Image quality: Diagnostic. Lower Chest: No significant findings. ABDOMEN: Liver: No solid mass. Gallbladder: Status post cholecystectomy. Biliary ducts: No biliary dilation. Pancreas: No ductal dilation. Spleen: Size is within normal limits. Adrenal Glands: No adrenal nodules. Kidneys and Ureters: No hydronephrosis. No solid mass. No complex renal cystic lesion which requires follow up. Stomach and Bowel: Normal colonic caliber, without significant wall thickening. Status post appendectomy. Small bowel loops and stomach are unremarkable. Peritoneum: No abnormal intraperitoneal fluid. No free air. Ventral Wall: Fat containing periumbilical hernia. Abdominal Nodes: No retroperitoneal or mesenteric adenopathy by size criteria. Vessels: Aorta and inferior vena cava are normal in size. PELVIS: Pelvic Organs: Unremarkable. Bladder: No bladder wall thickening, accounting for underdistention. Pelvic Nodes: No enlarged lymph nodes. Miscellaneous: Small fat containing inguinal hernias. Bones: No aggressive osseous abnormality. IMPRESSION: No acute traumatic findings in the abdomen or pelvis. Approved by: Kolton Ponce M.D. on 04/21/2025 at 19:34
[2025-04-21] MEDS: KETOROLAC 30 MG/ML VIAL 15 MG IV (18:45)
[2025-04-21] MEDS: HYDROMORPHONE 0.5 MG INJ IV (18:45)
[2025-04-21] MEDS: ONDANSETRON 4 MG/2 ML INJ IV (18:45)
[2025-04-21 18:55] LABS: Add Manual Diff / Slide Review NO; Basophils Absolute Auto 0 /uL (0-100); Basophils Percent Auto 0.7 % (0-2); Eosinophils Absolute Auto 100 /uL (0-450); Eosinophils Percent Auto 1.4 % (2-4); Hematocrit 48.9 % (41-53); Hemoglobin 16.5 g/dL (13.5-17.5); Lymphocytes Absolute Auto 1100 /uL (1100-4500); Lymphocytes Percent Auto 16.4 % (25-40); Mean Corpuscular HGB Conc 33.7 % (30-36); Mean Corpuscular Volume 89.1 fL (80-100); Monocytes Absolute Auto 800 /uL (0-900); Monocytes Percent Auto 11.7 % (3-14); Neutrophils Absolute Auto 4800 /uL (1500-7000); Neutrophils Percent Auto 69.8 % (50-75); Platelet Count 168 X10^3/uL (150-400); Red Blood Cell Count 5.49 X10^6/uL (4.5-5.9); Red Cell Distribution Width 14.1 % (11.6-14.8); White Blood Cell Count 6.8 X10^3/uL (4.5-11.0)
[2025-04-21 18:57] LABS: Prothrombin Time 11.5 SECONDS (9.4-12.5)
[2025-04-21 19:01] LABS: Alanine Aminotransferase 87 IU/L (<50); Albumin 4.8 g/dL (3.5-5.0); Albumin Globulin Ratio 1.5 (1.0-2.8); Alkaline Phosphatase 68 U/L (38-126); Aspartate Aminotransferase 40 IU/L (17-59); BUN Creatinine Ratio 21.3 (6-22); Bilirubin Total 0.6 mg/dL (0.2-1.3); Blood Urea Nitrogen 26 mg/dL (9-20); Calcium 9.5 mg/dL (8.4-10.2); Carbon Dioxide 26 mmol/L (22-32); Chloride 104 mmol/L (98-107); Estimated Glomerular Filt Rate > 60 mL/min (>60); Globulin 3.1 g/dL (1.7-4.1); Glucose 114 mg/dL (70-99); HEMOLYSIS 21 (0-50); Lipase 46 U/L (23-300); Potassium 4.3 mmol/L (3.4-5.1); Sodium 139 mmol/L (137-145); Total Protein 7.9 g/dL (6.3-8.2)
--- NOTE | 2025-04-21 19:07 | PC.NURSE ---
patient's sig other stated in confidence that the patient has been going through depression after having skin cancer that was removed. He was getting better and then began having abd pain that turned into gallstones with removal of the his gall bladder. He also battles with back pain after having a slipped disk while squatting years ago. He is going through a depressive episode still and is supposed to be taking sertraline and diazepam 2mg. The sig other was having to control his pain meds since he has been having issues with taking more than he was supposed to. She is unclear how much diazepam he has taken today. He took his morning dose and then was vomiting and it was unclear to her if he took another one. The patient has been to rehab several times in the passed and is open to getting help again but the sig other DOES NOT think right now he could handle that. She also doesn't want him to know that she offered this information.
[2025-04-21 19:48] VITALS: PULSE 84; RESP 18; O2SAT 95
[2025-04-21 19:54] VITALS: BP 131/85
[2025-04-21 20:00] VITALS: PULSE 78; O2SAT 94
[2025-04-21 20:01] VITALS: BP 123/72; PULSE 75; O2SAT 94
[2025-04-21] MEDS: methocarbamoL 500 MG TABLET PO (20:11)
[2025-04-21] MEDS: AMOXICILLIN/CLAV 875/125 MG 1 TAB PO (20:11)
[2025-04-21] MEDS: OXYCODONE IR 5 MG TABLET PO (20:11)
--- NOTE | 2025-04-21 20:53 | PC.NURSE ---
ptt bent down to pickle maker something and hit his forehead on an unknown objects. all he knows is that he tripped and then woke up in pain. He has tenderness on his c-spine and was placed in a c collar. He stated he has a headache and vision issues. provider aware.
== END 2025-04-21 20:52 | disposition home or self-care (01) ==
PROVIDERS: Emergency Provider Emergency Medicine; PCP Physician Assistant
DX: S00.83XA Contusion of other part of head, initial encounter (principal); M54.50 Low back pain, unspecified; S46.911A Strain of unspecified muscle, fascia and tendon at shoulder and upper arm level, right arm, initial encounter; J32.0 Chronic maxillary sinusitis; M54.2 Cervicalgia; R10.9 Unspecified abdominal pain; W01.0XXA Fall on same level from slipping, tripping and stumbling without subsequent striking against object, initial encounter
CPT/HCPCS: 70450; 70486; 71045; 72125; 74177; 80053; 83690; 85025; 85610; 96374; 96375; 99284; J1171; J1885; J2405; Q9967

== ENCOUNTER 2025-04-22 13:45 | Observation (INO) | payer OTHER, SELFPAY ==
[2025-04-17 09:25] VITALS: BMI 34.4
[2025-04-22] VITALS (65 sets, daily range): BP systolic 103–146; BP diastolic 59–99; PULSE 52–124; RESP 7–31; TEMP 34.7–37.3; O2SAT 91–97; BMI 29.2
--- NOTE | 2025-04-22 13:50 | DI.CT.S_ITS ---
PROCEDURE: CT TRAUMA CHEST ABDOMEN PELVIS INDICATIONS: Found unresponsive of. TECHNIQUE: After the administration of intravenous contrast, 5 mm thick sections acquired from the lung apices to the symphysis. 2.5 mm thick coronal and sagittal reformats were acquired. Additional 7 mm thick coronal maximum intensity projection (MIP) reformats acquired through the lungs. Optional 10-minute delayed imaging may be performed from the kidneys to the bladder. For radiation dose reduction, the following was used: automated exposure control, adjustment of mA and/or kV according to patient size. COMPARISON: None. FINDINGS: Image quality: Suboptimal due to motion artifact CHEST: Lower Neck: No enlarged lymph nodes. Thyroid: No thyroid nodules which require sonographic evaluation. Axillae: No enlarged lymph nodes. Chest Wall: No subcutaneous gas. Lungs and Pleura: No pulmonary contusions or lacerations. No acute airspace opacities. No pneumothorax or hemothorax. Mediastinum: No mediastinal hematomas. Heart size is normal. No pericardial effusion. Thoracic aorta and pulmonary arteries demonstrate normal size and enhancement. No mediastinal or hilar adenopathy. Esophagus is normal in caliber. No hiatal hernia. ABDOMEN: Liver: No lacerations. Gallbladder: Absent. Biliary ducts: No biliary dilation. Pancreas: Homogenous enhancement. Spleen: Homogenous enhancement without laceration or hematoma. Adrenal Glands: Symmetric enhancement. Kidneys and Ureters: Symmetric enhancement. No hydronephrosis. No solid mass. No complex renal cystic lesion which requires follow up. Stomach and Bowel: Normal colonic caliber, without significant wall thickening. Peritoneum: No abnormal intraperitoneal fluid. No free air. Ventral Wall: No hernia. Abdominal Nodes: No retroperitoneal or mesenteric adenopathy by size criteria. Vessels: Aorta and inferior vena cava are normal in size. PELVIS: Pelvic Organs: Unremarkable. Bladder: Normal thickness. Pelvic Nodes: No enlarged lymph nodes. Miscellaneous: No inguinal hernias are seen. Bones: Pelvic ring and hip joints appear intact. No displaced rib fractures. IMPRESSION: No evidence of traumatic injury to the chest, abdomen or pelvis. Dictated by: Tha Skelton M.D. on 04/22/2025 at 14:34 Approved by: Tha Skelton M.D. on 04/22/2025 at 14:38
--- NOTE | 2025-04-22 13:53 | ED_ITS ---
HPI - Altered Mental Status General Chief Complaint: Unresponsive Stated Complaint: unresponsive Time Seen by Provider: 04/22/25 13:50 History of Present Illness HPI narrative: Patient brought in by ambulance from home. Blood sugar 232. Patient was found unresponsive by girlfriend. Girlfriend left this morning to go to work and he was at baseline. She came back this afternoon to find him unconscious. Patient did have recent gallbladder surgery. She states he has been off of drugs and alcohol for many months. She manages his medications for him. Patient was given 4 doses of Narcan and patient did awake. Patient seen here yesterday for ground level fall and has contusions to the forehead. Patient admits to heroin use. Patient denies any history of seizures. Rectal temperature 94.2?. Elmo Hugger and warm blankets placed. Related Data Home Medications ?Medication ?Instructions ?Recorded ?Confirmed clonazepam 2 mg tablet 2 mg PO DIRECTED 04/08/25 04/22/25 sertraline 50 mg tablet 50 mg PO DAILY 04/08/2508/08 Allergies Allergy/AdvReac Type Severity Reaction Status Date / Time Penicillins AdvReac Hives Verified 04/21/25 18:36 Review of Systems Review of Systems Narrative: GENERAL: Negative chills, fatigue, malaise, fever, sweats. HEENT: Negative sinus pain, ear pain, sore throat RESPIRATORY: Negative dyspnea, cough CARDIOVASCULAR: Negative chest pain, palpitations GASTROINTESTINAL: Negative vomiting, nausea, abdominal pain : Negative dysuria, frequency, hematuria MUSCULOSKELETAL: Negative muscle or bony pain SKIN: Negative rash, skin lesions NEUROLOGIC: Negative weakness, numbness, positive confusion ROS Unobtainable: All systems reviewed & are unremarkable except as noted in HPI and below Patient History Social History household members: significant other and children Smoking Status: Current some day smoker alcohol intake: never Exam Narrative Exam Narrative: GENERAL: in no distress, not toxic not dyspneic HEAD: Normocephalic. Old bruise left forehead. Small contusion to the right mary orbital lateral surface. EYES: Pupils equal round ENT: Mucous membranes moist. NECK: Trachea midline. No midline tenderness or step-off cervical thoracic lumbar spine. Small abrasion to the left posterior hemipelvis. CARDIOVASCULAR: Regular rate and rhythm tachycardic RESPIRATORY: Clear to auscultation. Breath sounds equal bilaterally. No wheezes, rales, or rhonchi. GASTROINTESTINAL: Abdomen soft, non-tender EXTREMITIES: No gross deformities. BACK: No flank tenderness. NEURO: AOx2. Clear speech SKIN: dry however cool pale skin PSYCH: Not anxious, is cooperative Initial Vital Signs Initial Vital Signs: Vital Signs Pulse Rate 105 H 04/22/25 13:46 Pulse Oximetry 94 04/22/25 13:46 Course Orders Ordered: Acetaminophen (Acetaminophen 325 Mg Tablet) 650 mg PO Q6H PRN PRN Reason: Fever/Mild Pain (1-3) Last Admin: 04/23/25 09:54 Dose: 650 mg Documented By: Admin: 04/22/25 21:39 Dose: 650 mg Documented By: MOHAN Enoxaparin Sodium (Enoxaparin 40 Mg/0.4 Ml Syringe) 40 mg SUBCUT DAILY [facility] Last Admin: 04/23/25 09:55 Dose: 40 mg Documented By: LEON Ibuprofen (Ibuprofen 600 Mg Tablet) 600 mg PO Q6H PRN PRN Reason: Fever/Mild Pain (1-3) Last Admin: 04/23/25 09:54 Dose: 600 mg Documented By: LEON Naloxone HCl (Naloxone 0.4 Mg/Ml Vial) 0.2 mg IV Q2MIN PRN PRN Reason: Opiate Reversal Ondansetron HCl (Ondansetron 4 Mg/2 Ml Inj) 4 mg IV Q8HR PRN PRN Reason: Nausea And Vomiting Sertraline HCl (Sertraline 50 Mg Tablet) 50 mg PO DAILY [facility] Last Admin: 04/23/25 09:55 Dose: Not Given Documented By: LEON Discontinued Medications Sodium Chloride (Normal Saline 0.9%) 1,000 mls @ 1,000 mls/hr IV BOLUS ONE Stop: 04/22/25 16:26 Last Infusion: 04/22/25 17:13 Dose: Infused Documented By: Admin: 04/22/25 15:46 Dose: 1,000 mls/hr Documented By: RAUL Acetaminophen (Ofirmev) 1,000 mg in 100 mls @ 400 mls/hr IV NOW ONE Stop: 04/22/25 15:46 Last Infusion: 04/22/25 16:22 Dose: Infused Documented By: Admin: 04/22/25 15:46 Dose: 400 mls/hr Documented By: RAUL Naloxone HCl 2 mg/ Sodium (Chloride) 500 mls @ 62.5 mls/hr IV TITRATE RAHEEM; Protocol Last Admin: 04/23/25 01:56 Dose: 0.25 mg/hr, 62.5 mls/hr Documented By: Titration: 04/23/25 01:56 Dose: Infused Documented By: Admin: 04/22/25 18:15 Dose: 0.25 mg/hr, 62.5 mls/hr Documented By: AUGIE Sodium Chloride (Normal Saline 0.9%) 1,000 mls @ 100 mls/hr IV CONT RHAEEM Last Admin: 04/23/25 07:30 Dose: 100 mls/hr Documented By: Infusion: 04/23/25 07:30 Dose: Infused Documented By: Admin: 04/22/25 21:37 Dose: 100 mls/hr Documented By: MOHAN Naloxone HCl (Naloxone 0.4 Mg/Ml Vial) 0.2 mg IV NOW ONE Stop: 04/22/25 15:42 Last Admin: 04/22/25 15:46 Dose: 0.2 mg Documented By: RAUL Vital Signs Vital signs: Vital Signs - 8 hr 04/22/25 13:46 04/22/25 13:47 04/22/25 13:47 Temperature Pulse Rate 105 H 102 H Respiratory Rate 28 H Blood Pressure 146/99 H Pulse Oximetry 94 93 Oxygen Delivery Method Oxygen Flow Rate 04/22/25 13:49 04/22/25 13:51 04/22/25 13:51 Temperature 94.4 F L Pulse Rate 124 H 103 H Respiratory Rate 24 31 H Blood Pressure 146/95 H 146/95 H Pulse Oximetry 96 94 Oxygen Delivery Method Room Air Oxygen Flow Rate 04/22/25 13:55 04/22/25 13:55 04/22/25 13:57 Temperature Pulse Rate 99 H Respiratory Rate 25 H Blood Pressure 135/84 133/89 Pulse Oximetry Oxygen Delivery Method Oxygen Flow Rate 04/22/25 13:59 04/22/25 13:59 04/22/25 14:00 Temperature Pulse Rate 97 H 96 H Respiratory Rate 25 H Blood Pressure 137/87 Pulse Oximetry 93 92 Oxygen Delivery Method Oxygen Flow Rate 04/22/25 14:03 04/22/25 14:03 04/22/25 14:05 Temperature Pulse Rate 97 H Respiratory Rate 28 H Blood Pressure 139/87 135/78 Pulse Oximetry 94 Oxygen Delivery Method Oxygen Flow Rate 04/22/25 14:05 04/22/25 14:10 04/22/25 14:10 Temperature Pulse Rate 97 H 93 H Respiratory Rate 21 17 Blood Pressure 126/77 Pulse Oximetry 93 95 Oxygen Delivery Method Oxygen Flow Rate 04/22/25 14:16 04/22/25 14:16 04/22/25 14:20 Temperature Pulse Rate 94 H Respiratory Rate 19 Blood Pressure 133/88 133/82 Pulse Oximetry 97 Oxygen Delivery Method Oxygen Flow Rate 04/22/25 14:20 04/22/25 14:25 04/22/25 14:25 Temperature Pulse Rate 92 H 91 H Respiratory Rate 20 22 Blood Pressure 134/80 Pulse Oximetry 96 96 Oxygen Delivery Method Oxygen Flow Rate 04/22/25 14:30 04/22/25 14:30 04/22/25 14:35 Temperature Pulse Rate 91 H Respiratory Rate 20 Blood Pressure 126/78 130/82 Pulse Oximetry 93 Oxygen Delivery Method Oxygen Flow Rate 04/22/25 14:35 04/22/25 14:40 04/22/25 14:40 Temperature 95.4 F L 97.0 F L Pulse Rate 91 H 94 H Respiratory Rate 16 19 Blood Pressure 127/76 Pulse Oximetry 93 91 Oxygen Delivery Method Nasal Cannula Oxygen Flow Rate 4 04/22/25 14:45 04/22/25 14:45 04/22/25 14:50 Temperature 97.3 F L Pulse Rate 95 H Respiratory Rate 20 Blood Pressure 124/79 125/78 Pulse Oximetry 96 Oxygen Delivery Method Oxygen Flow Rate 04/22/25 14:50 04/22/25 14:55 04/22/25 14:55 Temperature 97.5 F L 97.7 F Pulse Rate 96 H 100 H Respiratory Rate 18 22 Blood Pressure 122/81 Pulse Oximetry 92 93 Oxygen Delivery Method Oxygen Flow Rate 04/22/25 15:00 04/22/25 15:00 04/22/25 15:05 Temperature 97.9 F Pulse Rate 94 H Respiratory Rate 16 Blood Pressure 123/80 125/79 Pulse Oximetry 94 Oxygen Delivery Method Oxygen Flow Rate 04/22/25 15:05 04/22/25 15:10 04/22/25 15:10 Temperature 97.9 F 98.1 F Pulse Rate 101 H 96 H Respiratory Rate 21 11 L Blood Pressure 126/77 Pulse Oximetry 97 94 Oxygen Delivery Method Oximask Oxygen Flow Rate 4 04/22/25 15:15 04/22/25 15:15 04/22/25 15:20 Temperature 98.1 F Pulse Rate 98 H Respiratory Rate 12 Blood Pressure 122/75 120/74 Pulse Oximetry 94 Oxygen Delivery Method Oxygen Flow Rate 04/22/25 15:20 04/22/25 15:25 04/22/25 15:25 Temperature 98.1 F 98.2 F Pulse Rate 92 H 96 H Respiratory Rate 11 L 12 Blood Pressure 116/73 Pulse Oximetry 91 92 Oxygen Delivery Method Oxygen Flow Rate 04/22/25 15:30 04/22/25 15:30 04/22/25 15:35 Temperature 98.2 F Pulse Rate 98 H Respiratory Rate 13 Blood Pressure 106/73 125/72 Pulse Oximetry 96 Oxygen Delivery Method Oxygen Flow Rate 04/22/25 15:35 04/22/25 15:40 04/22/25 15:40 Temperature 98.4 F 98.4 F Pulse Rate 96 H 104 H Respiratory Rate 17 14 Blood Pressure 122/74 Pulse Oximetry 92 93 Oxygen Delivery Method Oximask Oxygen Flow Rate 5 04/22/25 15:45 04/22/25 15:45 04/22/25 15:50 Temperature 98.4 F Pulse Rate 98 H Respiratory Rate 16 Blood Pressure 118/74 112/71 Pulse Oximetry 93 Oxygen Delivery Method Oximask Oxygen Flow Rate 5 04/22/25 15:50 04/22/25 15:55 04/22/25 15:55 Temperature 98.6 F 98.6 F Pulse Rate 104 H 98 H Respiratory Rate 18 17 Blood Pressure 120/72 Pulse Oximetry 93 92 93 Oxygen Delivery Method Oximask Oxygen Flow Rate 3 MDM - Altered Mental Status Lab Data 04/23/25 04:07 04/23/25 04:07 Labs: Lab Results 04/22/25 04/22/25 04/22/25 Range/Units 14:24 14:35 15:49 WBC 7.5 (4.5-11.0) X10^3/uL RBC 4.94 (4.5-5.9) X10^6/uL Hgb 15.2 (13.5-17.5) g/dL Hct 44.4 (41-53) % MCV 89.8 (80-100) fL MCH 30.6 (26-34) PG MCHC 34.1 (30-36) % RDW 13.8 (11.6-14.8) % Plt Count 148 L (150-400) X10^3/uL Neut % (Auto) 89.0 H (50-75) % Lymph % (Auto) 8.0 L (25-40) % [place]arrard % (Auto) 1.7 L (3-14) % Eos % (Auto) 0.8 L (2-4) % Baso % (Auto) 0.5 (0-2) % Neut # (Auto) 6700 (8706-6154) /uL Lymph # (Auto) 600 L (3888-8913) /uL [place] # (Auto) 100 (0-900) /uL Eos # (Auto) 100 (0-450) /uL Baso # (Auto) 0 (0-100) /uL PT 11.7 (9.4-12.5) SECONDS INR 1.0 (0.9-1.3) APTT 33 (25.1-36.5) SECONDS Sodium 137 140 (137-145) mmol/L Potassium 5.2 H 3.8 D (3.4-5.1) mmol/L Chloride 99 108 H (98-107) mmol/L Carbon Dioxide 22 25 (22-32) mmol/L BUN 24 H 24 H (9-20) mg/dL Creatinine 1.89 H 1.35 H (0.66-1.25) mg/dL Estimated GFR 46 L > 60 (>60) mL/min BUN/Creatinine Ratio 12.7 17.8 (6-22) Glucose 206 H 72 D (70-99) mg/dL Calcium 8.6 7.3 L (8.4-10.2) mg/dL Total Bilirubin 0.4 (0.2-1.3) mg/dL AST 93 H (17-59) IU/L ALT 107 H (<50) IU/L Alkaline Phosphatase 71 (38-126) U/L Total Creatine Kinase 247 H 272 H (55-170) U/L Troponin I 0.038 H 0.069 H (0.01-0.034) ng/mL Total Protein 6.6 (6.3-8.2) g/dL Albumin 4.3 (3.5-5.0) g/dL Globulin 2.3 (1.7-4.1) g/dL Albumin/Globulin Ratio 1.9 (1.0-2.8) U Opiates 300ng/mL cut Negative (Negative) Ur Oxycodone Screen Positive H (Negative) Urine Methadone Screen Negative (Negative) Ur Barbiturates Screen Negative (Negative) U Tricyclic Antidepress Negative (Negative) Ur Phencyclidine Scrn Negative (Negative) Ur Amphetamines Screen Negative (Negative) U Methamphetamines Scrn Negative (Negative) Ur MDMA Scrn (Ecstasy) Negative (Negative) U Benzodiazepines Scrn Positive H (Negative) Urine Cocaine Screen Negative (Negative) U Marijuana (THC) Screen Negative (Negative) Urine pH Normal (Normal) Urine Specific [place] Normal (Normal) Ethyl Alcohol < 10 (<10) mg/dL Ur Creatinine Normal (Normal) Point of Care Testing Glucose POC [address] scan - head: Radiologist's Impression: [address] [address] [address] Scan Report Signed Patient: Corey Bean MR#: [id number] : 1985 Acct:[id number] Age/Sex: 39 / M Date of Service: 04/22/25 Loc: ED Accession Number: [id number] Procedure: CT head/brain wo con Ordering Provider: Jurgen Castelan MD PROCEDURE: CT HEAD/BRAIN WO CON INDICATIONS: Trauma TECHNIQUE: Noncontrast 4.5 mm thick angled axial sections acquired from the foramen magnum to the vertex, with coronal and sagittal reformats. For radiation dose reduction, the following was used: automated exposure control, adjustment of mA and/or kV according to patient size. COMPARISON: [facility], CT, CT HEAD/BRAIN WO CON, 04/21/2025, 18:36. FINDINGS: Image quality: Diagnostic. CSF spaces: Basal cisterns are patent. No extra-axial fluid collections. Ventricles are normal in size and shape. Brain: No midline shift. No intracranial mass effect or hemorrhage. Bowles- white matter interface is normal. Skull and face: Calvarium and visualized facial bones are intact, without suspicious lesions. Sinuses: Visualized sinuses and mastoids are clear. IMPRESSION: No acute intracranial pathology. Dictated by: Tha Skelton M.D. on 04/22/2025 at 14:31 Approved by: Tha Skelton M.D. on 04/22/2025 at 14:32 CT - cervical spine: Radiologist's Impression: [address] [address] [address] Scan Report Signed Patient: Corey Bean MR#: [id number] : 1985 Acct:[id number] Age/Sex: 39 / M Date of Service: 04/22/25 Loc: ED Accession Number: [id number] Procedure: CT cervical spine wo con Ordering Provider: Jurgen Castelan MD PROCEDURE: CT CERVICAL SPINE WO CON INDICATIONS: Trauma TECHNIQUE: Noncontrast 3 mm thick sections acquired from the skull base to the T4 level. Sagittal and coronal reformats were then constructed. For radiation dose reduction, the following was used: automated exposure control, adjustment of mA and/or kV according to patient size. COMPARISON: [facility], CT, CT CERVICAL SPINE WO CON, 04/21/2025, 18:36. FINDINGS: Image quality: Excellent. Bones: No fractures or dislocations. Visualized superior ribs are intact. Soft tissues: Prevertebral soft tissues are normal in thickness. No paravertebral hematomas. No apical pneumothoraces. IMPRESSION: No displaced fracture or traumatic subluxation. Dictated by: Tha Skelton M.D. on 04/22/2025 at 14:32 Approved by: Tha Skelton M.D. on 04/22/2025 at 14:34 CT chest abdomen pelvis: Radiologist's Impression: [address] [address] [address] Scan Report Signed Patient: Corey Bean MR#: [id number] : 1985 Acct:[id number] Age/Sex: 39 / M Date of Service: 04/22/25 Loc: ED Accession Number: [id number] Procedure: CT Trauma Chest Abdomen Pelvis Ordering Provider: Jurgen Castelan MD PROCEDURE: CT TRAUMA CHEST ABDOMEN PELVIS INDICATIONS: Found unresponsive of. TECHNIQUE: After the administration of intravenous contrast, 5 mm thick sections acquired from the lung apices to the symphysis. 2.5 mm thick coronal and sagittal reformats were acquired. Additional 7 mm thick coronal maximum intensity projection (MIP) reformats acquired through the lungs. Optional 10-minute delayed imaging may be performed from the kidneys to the bladder. For radiation dose reduction, the following was used: automated exposure control, adjustment of mA and/or kV according to patient size. COMPARISON: None. FINDINGS: Image quality: Suboptimal due to motion artifact CHEST: Lower Neck: No enlarged lymph nodes. Thyroid: No thyroid nodules which require sonographic evaluation. Axillae: No enlarged lymph nodes. Chest Wall: No subcutaneous gas. Lungs and Pleura: No pulmonary contusions or lacerations. No acute airspace opacities. No pneumothorax or hemothorax. Mediastinum: No mediastinal hematomas. Heart size is normal. No pericardial effusion. Thoracic aorta and pulmonary arteries demonstrate normal size and enhancement. No mediastinal or hilar adenopathy. Esophagus is normal in caliber. No hiatal hernia. ABDOMEN: Liver: No lacerations. Gallbladder: Absent. Biliary ducts: No biliary dilation. Pancreas: Homogenous enhancement. Spleen: Homogenous enhancement without laceration or hematoma. Adrenal Glands: Symmetric enhancement. Kidneys and Ureters: Symmetric enhancement. No hydronephrosis. No solid mass. No complex renal cystic lesion which requires follow up. Stomach and Bowel: Normal colonic caliber, without significant wall thickening. Peritoneum: No abnormal intraperitoneal fluid. No free air. Ventral Wall: No hernia. Abdominal Nodes: No retroperitoneal or mesenteric adenopathy by size criteria. Vessels: Aorta and inferior vena cava are normal in size. PELVIS: Pelvic Organs: Unremarkable. Bladder: Normal thickness. Pelvic Nodes: No enlarged lymph nodes. Miscellaneous: No inguinal hernias are seen. Bones: Pelvic ring and hip joints appear intact. No displaced rib fractures. IMPRESSION: No evidence of traumatic injury to the chest, abdomen or pelvis. Dictated by: Tha Skelton M.D. on 04/22/2025 at 14:34 Approved by: Tha Skelton M.D. on 04/22/2025 at 14:38 CT scan - chest: Radiologist's Impression: [address] [address] [address] Scan Report Signed Patient: Corey Bean MR#: [id number] : 1985 Acct:[id number] Age/Sex: 39 / M Date of Service: 04/22/25 Loc: ED Accession Number: [id number] Procedure: CT angio chest PE protocol Ordering Provider: Jurgen Castelan MD PROCEDURE: CT ANGIO CHEST PE PROTOCOL INDICATIONS: SHORTNESS OF BREATH TECHNIQUE: After the administration of intravenous contrast, 2 mm thick sections acquired from the pulmonary apices to the posterior costophrenic angles. 3-dimensional maximum intensity projection (MIP) coronal and sagittal reformats were then acquired through the thorax. For radiation dose reduction, the following was used: automated exposure control, adjustment of mA and/or kV according to patient size. COMPARISON: None. FINDINGS: Image quality: Diagnostic. Pulmonary arteries: Pulmonary arteries are normal in size, and demonstrate no intraluminal filling defects to suggest central pulmonary embolism. Lower Neck: No enlarged lymph nodes. Thyroid: No thyroid nodules which require sonographic follow up, per consensus guidelines. Axillae: No enlarged lymph nodes. Chest Wall: Unremarkable. Bones: No aggressive appearing bony lesions. Lungs and Pleura: Trace bilateral pleural effusion and bibasilar dependent atelectasis posteriorly. No pneumothorax. Biapical scarring. Scattered atelectasis in posterior and lateral periphery of bilateral lung brown are seen. No consolidation or suspicious nodules. Heart: Heart size is mildly enlarged. No pericardial effusion. Thoracic Vessels: No aortic aneurysm. Mediastinum and Joann: No enlarged lymph nodes. Esophagus: No wall thickening. Small hiatal hernia. Upper Abdomen: Visualized upper abdomen solid organs and bowel loops appear normal. IMPRESSION: 1. No pulmonary embolus. No thoracic aortic aneurysm or gross dissection. Cardiomegaly, no pericardial effusion. 2. Trace bilateral pleural effusion with bibasilar dependent atelectasis. No definite focal infiltrate. No pneumothorax. Biapical scarring and scattered atelectasis in periphery of bilateral lung brown. 3. No gross mediastinal or hilar lymphadenopathy. Small hiatal hernia. Dictated by: Yobany Maloney M.D. on 04/22/2025 at 17:24 Approved by: Yobany Maloney M.D. on 04/22/2025 at 17:28 MDM Narrative Medical decision making narrative: Patient brought in by ambulance from home. Blood sugar 232. Patient was found unresponsive by girlfriend. Girlfriend left this morning to go to work and he was at baseline. She came back this afternoon to find him unconscious. Patient did have recent gallbladder surgery. She states he has been off of drugs and alcohol for many months. She manages his medications for him. Patient was given 4 doses of Narcan and patient did awake. Patient seen here yesterday for ground level fall and has contusions to the forehead. Patient admits to heroin use. Patient denies any history of seizures. Rectal temperature 94.2?. Elmo Hugger and warm blankets placed. After history and exam, CT head CT face CT cervical spine CT chest abdomen pelvis EKG drug screen alcohol level [facility] Medical records reviewed: Recent visit here yesterday for ground level fall Differential considered: Includes but not limited to sepsis seizure substance abuse dehydration Lab Test results independently reviewed as above. Pertinent findings: WBC 7.5 hemoglobin 15.2 INR 1.0 sodium 137 potassium 5.2 BUN 24 creatinine 1.89 GFR 46 glucose 206 AST 93 ALT 107 troponin 0.038 total CK 247 drug screen positive oxycodone positive benzodiazepines alcohol negative Independently reviewed EKG initial EKG at 1:57 p.m. significant amount of artifact., will need to repeat EKG, repeat EKG at 3:18 p.m.. Normal sinus rhythm rate [address] elevation or depression Imaging studies independently reviewed: CT head cervical spine chest abdomen pelvis no acute finding, CT chest no acute finding Consultations: 3:[address] Aguilera, he would like repeat troponin IV fluids before admission. Repeat BMP 5:[address] Aguilera would like ICU admit with Narcan drip 4:[address] Aguilera, who will see patient for admission. Renal function did improve. Troponin likely from CPR. Re-evaluations: 3:13 p.m.. Sridhare and family at bedside. Patient is much more alert now but slow to respond. No pinpoint pupils. Patient answering appropriately but slowly. 4:29 p.m. updated patient and family results, troponin was elevated and likely from CPR conducted by sridhar at home. There is no family history of coronary artery disease Father informed me that patient has been trying to get opiates from friends. Discussion: Appropriate for admission for observation for hypothermia. Possible accidental overdose. Airway intact. Narcan drip ordered. Family aware and agree for admit. Hospitalist contacted for admission. Diagnosis: Syncope hypothermia medication overdose Critical Care Time Critical Care Time Attestation: Critical Care Time 35 minutes: Critical care time is separate from other billable procedures. This critical care time includes consultation with family and other consulting doctors, review of records, and interpretation of data from labs, EKGs, imaging, etc. Discharge Plan Departure Patient Disposition: Admitted as Observation Clinical Impression: Drug overdose Qualifiers: Encounter type: initial encounter Injury intent: undetermined intent Qualified Code(s): T50.904A - Poisoning by unspecified drugs, medicaments and biological substances, undetermined, initial encounter Hypothermia Qualifiers: Encounter type: initial encounter Qualified Code(s): T68.XXXA - Hypothermia, initial encounter Admit Date/Time: 04/22/25 17:39 Admit Provider: Eric Aguilera
--- NOTE | 2025-04-22 13:57 | EKG_ITS ---
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
[2025-04-22 14:40] LABS: Add Manual Diff / Slide Review NO; Basophils Absolute Auto 0 /uL (0-100); Basophils Percent Auto 0.5 % (0-2); Eosinophils Absolute Auto 100 /uL (0-450); Eosinophils Percent Auto 0.8 % (2-4); Hematocrit 44.4 % (41-53); Hemoglobin 15.2 g/dL (13.5-17.5); Lymphocytes Absolute Auto 600 /uL (1100-4500); Mean Corpuscular HGB Conc 34.1 % (30-36); Mean Corpuscular Hemoglobin 30.6 PG (26-34); Mean Corpuscular Volume 89.8 fL (80-100); Monocytes Absolute Auto 100 /uL (0-900); Monocytes Percent Auto 1.7 % (3-14); Neutrophils Absolute Auto 6700 /uL (1500-7000); Platelet Count 148 X10^3/uL (150-400); Red Blood Cell Count 4.94 X10^6/uL (4.5-5.9); Red Cell Distribution Width 13.8 % (11.6-14.8); White Blood Cell Count 7.5 X10^3/uL (4.5-11.0)
[2025-04-22 14:41] LABS: Prothrombin Time 11.7 SECONDS (9.4-12.5)
--- NOTE | 2025-04-22 14:42 | PC.NURSE ---
Pt becomes hypoxic at CT at 84% on RA. Pt placed on 4L NC and goes up to 96%. Pt back in room and trialed off oxygen. Maintains oxygen saturation WNL while placing heath cath. Pt oxygen saturation has dropped to 89-90%on RA. Pt repositioned and placed again on 4L NC. Current oxygen saturation is 93% on 4 and respirations of 14. Provider Annelise made aware.
[2025-04-22 14:44] LABS: PTT Partial Thromboplastin Tim 33 SECONDS (25.1-36.5)
[2025-04-22 14:45] LABS: Creatine Kinase 247 U/L (55-170)
[2025-04-22 14:46] LABS: Alanine Aminotransferase 107 IU/L (<50); Albumin 4.3 g/dL (3.5-5.0); Albumin Globulin Ratio 1.9 (1.0-2.8); Alkaline Phosphatase 71 U/L (38-126); Aspartate Aminotransferase 93 IU/L (17-59); BUN Creatinine Ratio 12.7 (6-22); Bilirubin Total 0.4 mg/dL (0.2-1.3); Blood Urea Nitrogen 24 mg/dL (9-20); Calcium 8.6 mg/dL (8.4-10.2); Carbon Dioxide 22 mmol/L (22-32); Chloride 99 mmol/L (98-107); Estimated Glomerular Filt Rate 46 mL/min (>60); Ethanol (ETOH) < 10 mg/dL (<10); Globulin 2.3 g/dL (1.7-4.1); Glucose 206 mg/dL (70-99); HEMOLYSIS < 15 (0-50); Potassium 5.2 mmol/L (3.4-5.1); Sodium 137 mmol/L (137-145); Total Protein 6.6 g/dL (6.3-8.2)
[2025-04-22 14:54] LABS: Ur Creatinine Normal (Normal); Ur Specific Gravity Normal (Normal); Urine Amphetamines Negative (Negative); Urine Barbiturates Negative (Negative); Urine Benzodiazepines Positive (Negative); Urine Cocaine Negative (Negative); Urine MDMA Negative (Negative); Urine Methadone Negative (Negative); Urine Opiates Negative (Negative); Urine Oxycodone Positive (Negative); Urine Phencyclidine Negative (Negative); Urine THC Negative (Negative); Urine Tricyclic Antidepressant Negative (Negative); Urine pH Normal (Normal)
--- NOTE | 2025-04-22 14:57 | PC.NURSE ---
Addendum entered by Yoli De La Garza R.N. 04/22/25 15:06: Pt also presented incontinent of urine. Original Note: Pt presents with shaking, chills, ashen color skin. He is confused to year, month and situation. Unknown what happened. Hx of drug abuse. Also seen yesterday for a fall and hitting his head with + LOC yesterday from fall. No thinners. Pt has a hematoma on his left upper forehead, fiance states that's from yesterday. New hematoma, non-bleeding laceration above right eye. Fiance states these are new today. Pt also has abrasions to his left back. C/o neck pain, head pain, RIGHT arm/shoulder/hand pain. He is GCS 14 for confusion. Fiance also states he has a prescription for clonazepam 2mg oral and unsure if took today. Fiance and family at bedside.
[2025-04-22 14:58] LABS: Troponin I 0.038 ng/mL (0.01-0.034)
--- NOTE | 2025-04-22 15:18 | EKG_ITS ---
[address] [address] [address], [place] [address] Test Date: 2025-04-22 Pat Name: Corey Bean Department: Room: Gender: Male Nurse Research: RAYMON : 1985 Requested By: Order Number: [id number] Reading MD: Eric Aguilera Measurements Intervals [place] Rate: 94 P: 57 [place]: 180 QRS: 101 QRSD: 106 T: 28 QT: 376 QTc: 470 Interpretive Statements Normal sinus rhythm Rightward axis Electronically Signed On 04-26-2025 0:07:15 PDT by Eric Aguilera
--- NOTE | 2025-04-22 15:30 | PC.NURSE ---
Pt c/o right hip pain and head pain. Pt also now at 5L via oximask and saturation is 96%. Provider Annelise made aware.
[2025-04-22] MEDS: SODIUM CHLORIDE 0.9% 1,000 ML 1000 ML IV (15:46)
[2025-04-22] MEDS: ACETAMINOPHEN IV 1,000 MG/100 ML VIAL 400 MG IV (15:46)
[2025-04-22] MEDS: NALOXONE 0.4 MG/ML VIAL 0.2 MG IV (15:46)
[2025-04-22 16:07] LABS: BUN Creatinine Ratio 17.8 (6-22); Blood Urea Nitrogen 24 mg/dL (9-20); Calcium 7.3 mg/dL (8.4-10.2); Carbon Dioxide 25 mmol/L (22-32); Chloride 108 mmol/L (98-107); Creatine Kinase 272 U/L (55-170); Estimated Glomerular Filt Rate > 60 mL/min (>60); Glucose 72 mg/dL (70-99); HEMOLYSIS 46 (0-50); Potassium 3.8 mmol/L (3.4-5.1); Sodium 140 mmol/L (137-145)
[2025-04-22 16:19] LABS: Troponin I 0.069 ng/mL (0.01-0.034)
--- NOTE | 2025-04-22 16:50 | DI.CT.S_ITS ---
PROCEDURE: CT ANGIO CHEST PE PROTOCOL INDICATIONS: SHORTNESS OF BREATH TECHNIQUE: After the administration of intravenous contrast, 2 mm thick sections acquired from the pulmonary apices to the posterior costophrenic angles. 3-dimensional maximum intensity projection (MIP) coronal and sagittal reformats were then acquired through the thorax. For radiation dose reduction, the following was used: automated exposure control, adjustment of mA and/or kV according to patient size. COMPARISON: None. FINDINGS: Image quality: Diagnostic. Pulmonary arteries: Pulmonary arteries are normal in size, and demonstrate no intraluminal filling defects to suggest central pulmonary embolism. Lower Neck: No enlarged lymph nodes. Thyroid: No thyroid nodules which require sonographic follow up, per consensus guidelines. Axillae: No enlarged lymph nodes. Chest Wall: Unremarkable. Bones: No aggressive appearing bony lesions. Lungs and Pleura: Trace bilateral pleural effusion and bibasilar dependent atelectasis posteriorly. No pneumothorax. Biapical scarring. Scattered atelectasis in posterior and lateral periphery of bilateral lung brown are seen. No consolidation or suspicious nodules. Heart: Heart size is mildly enlarged. No pericardial effusion. Thoracic Vessels: No aortic aneurysm. Mediastinum and Joann: No enlarged lymph nodes. Esophagus: No wall thickening. Small hiatal hernia. Upper Abdomen: Visualized upper abdomen solid organs and bowel loops appear normal. IMPRESSION: 1. No pulmonary embolus. No thoracic aortic aneurysm or gross dissection. Cardiomegaly, no pericardial effusion. 2. Trace bilateral pleural effusion with bibasilar dependent atelectasis. No definite focal infiltrate. No pneumothorax. Biapical scarring and scattered atelectasis in periphery of bilateral lung brown. 3. No gross mediastinal or hilar lymphadenopathy. Small hiatal hernia. Dictated by: Yobany Maloeny M.D. on 04/22/2025 at 17:24 Approved by: Yobany Maloney M.D. on 04/22/2025 at 17:28
[2025-04-22] MEDS: NALOXONE 2 MG in SODIUM CHLORIDE 0.9% 500 ML 62.5 MG IV (18:15)
--- NOTE | 2025-04-22 18:31 | PM.HP.1 ---
History of Present Illness History of Present Illness Date Patient Seen: 04/22/25 Chief complaint: unresponsive Narrative: This is a 39-year-old male with the past medical history anxiety and recent cholecystectomy who is likely suffering from an opiate overdose. Patient has very little memory recall of today's events. According to his partner who saw him earlier today she found him down, unresponsive, and not breathing. She called EMS and she started CPR. He denied any substance use to me in the ER on my evaluation, only use of prescription opiates. He reported mainly post operative pain in his abdomen, no shortness of breath or chest pain that he could recall. He was given 5 total doses of narcan, 4 with EMS and with worsening O2 requirements another dose in the ER. He is much more alert but still quite groggy, and unable to recall any recent events. In the ER, CT without contrast showed no acute injuries. Asked for CTA given elevated troponin and hypoxia with recent surgery which was negative for PE. Asked given hypoxia and grogginess patient be placed on narcan infusion and admitted to ICU. [facility] Social History household members: significant other and children Smoking Status: Current every day smoker alcohol intake: current Meds Home Medications and Allergies Home Medications ?Medication ?Instructions ?Recorded ?Confirmed ?Type clonazepam 2 mg tablet 2 mg PO DIRECTED 04/08/25 04/17/25 History sertraline 50 mg tablet 50 mg PO DAILY 04/08/25 04/17/25 History hydrocodone 5 mg-acetaminophen 325 1 tab PO Q8H PRN pain #14 tabs 04/10/25 04/17/25 Rx mg tablet oxycodone 10 mg tablet 10 mg PO Q6H PRN pain #30 tabs 04/12/25 04/17/25 Rx oxycodone 10 mg tablet 10 mg PO Q8H PRN pain #14 tabs 04/17/25 04/17/25 Rx meloxicam 7.5 mg tablet 7.5 mg PO DAILY PRN pain #10 tabs 04/18/25 Rx oxycodone 10 mg tablet 10 mg PO Q6H PRN pain #10 tabs 04/18/25 Rx amoxicillin 875 mg-potassium 1 tab PO BID #20 tabs 04/21/25 Rx clavulanate 125 mg tablet oxycodone 10 mg tablet 10 mg PO TID PRN pain #10 tabs 04/21/25 Rx Allergies Allergy/AdvReac Type Severity Reaction Status Date / Time Penicillins AdvReac Hives Verified 04/21/25 18:36 Review of Systems Review of Systems Narrative: All other systems reviewed with the patient and significant other and are negative unless otherwise stated. Exam Vital Signs (past 8 hours): - 04/22/25 13:46 04/22/25 13:47 04/22/25 13:47 Temperature Pulse Rate 105 H 102 H Respiratory Rate 28 H Blood Pressure 146/99 H Pulse Oximetry 94 93 Oxygen Delivery Method Oxygen Flow Rate 04/22/25 13:49 04/22/25 13:51 04/22/25 13:51 Temperature 94.4 F L Pulse Rate 124 H 103 H Respiratory Rate 24 31 H Blood Pressure 146/95 H 146/95 H Pulse Oximetry 96 94 Oxygen Delivery Method Room Air Oxygen Flow Rate 04/22/25 13:55 04/22/25 13:55 04/22/25 13:57 Temperature Pulse Rate 99 H Respiratory Rate 25 H Blood Pressure 135/84 133/89 Pulse Oximetry Oxygen Delivery Method Oxygen Flow Rate 04/22/25 13:59 04/22/25 13:59 04/22/25 14:00 Temperature Pulse Rate 97 H 96 H Respiratory Rate 25 H Blood Pressure 137/87 Pulse Oximetry 93 92 Oxygen Delivery Method Oxygen Flow Rate 04/22/25 14:03 04/22/25 14:03 04/22/25 14:05 Temperature Pulse Rate 97 H Respiratory Rate 28 H Blood Pressure 139/87 135/78 Pulse Oximetry 94 Oxygen Delivery Method Oxygen Flow Rate 04/22/25 14:05 04/22/25 14:10 04/22/25 14:10 Temperature Pulse Rate 97 H 93 H Respiratory Rate 21 17 Blood Pressure 126/77 Pulse Oximetry 93 95 Oxygen Delivery Method Oxygen Flow Rate 04/22/25 14:16 04/22/25 14:16 04/22/25 14:20 Temperature Pulse Rate 94 H Respiratory Rate 19 Blood Pressure 133/88 133/82 Pulse Oximetry 97 Oxygen Delivery Method Oxygen Flow Rate 04/22/25 14:20 04/22/25 14:25 04/22/25 14:25 Temperature Pulse Rate 92 H 91 H Respiratory Rate 20 22 Blood Pressure 134/80 Pulse Oximetry 96 96 Oxygen Delivery Method Oxygen Flow Rate 04/22/25 14:30 04/22/25 14:30 04/22/25 14:35 Temperature Pulse Rate 91 H Respiratory Rate 20 Blood Pressure 126/78 130/82 Pulse Oximetry 93 Oxygen Delivery Method Oxygen Flow Rate 04/22/25 14:35 04/22/25 14:40 04/22/25 14:40 Temperature 95.4 F L 97.0 F L Pulse Rate 91 H 94 H Respiratory Rate 16 19 Blood Pressure 127/76 Pulse Oximetry 93 91 Oxygen Delivery Method Nasal Cannula Oxygen Flow Rate 4 04/22/25 14:45 04/22/25 14:45 04/22/25 14:50 Temperature 97.3 F L Pulse Rate 95 H Respiratory Rate 20 Blood Pressure 124/79 125/78 Pulse Oximetry 96 Oxygen Delivery Method Oxygen Flow Rate 04/22/25 14:50 04/22/25 14:55 04/22/25 14:55 Temperature 97.5 F L 97.7 F Pulse Rate 96 H 100 H Respiratory Rate 18 22 Blood Pressure 122/81 Pulse Oximetry 92 93 Oxygen Delivery Method Oxygen Flow Rate 04/22/25 15:00 04/22/25 15:00 04/22/25 15:05 Temperature 97.9 F Pulse Rate 94 H Respiratory Rate 16 Blood Pressure 123/80 125/79 Pulse Oximetry 94 Oxygen Delivery Method Oxygen Flow Rate 04/22/25 15:05 04/22/25 15:10 04/22/25 15:10 Temperature 97.9 F 98.1 F Pulse Rate 101 H 96 H Respiratory Rate 21 11 L Blood Pressure 126/77 Pulse Oximetry 97 94 Oxygen Delivery Method Oximask Oxygen Flow Rate 4 04/22/25 15:15 04/22/25 15:15 04/22/25 15:20 Temperature 98.1 F Pulse Rate 98 H Respiratory Rate 12 Blood Pressure 122/75 120/74 Pulse Oximetry 94 Oxygen Delivery Method Oxygen Flow Rate 04/22/25 15:20 04/22/25 15:25 04/22/25 15:25 Temperature 98.1 F 98.2 F Pulse Rate 92 H 96 H Respiratory Rate 11 L 12 Blood Pressure 116/73 Pulse Oximetry 91 92 Oxygen Delivery Method Oxygen Flow Rate 04/22/25 15:30 04/22/25 15:30 04/22/25 15:35 Temperature 98.2 F Pulse Rate 98 H Respiratory Rate 13 Blood Pressure 106/73 125/72 Pulse Oximetry 96 Oxygen Delivery Method Oxygen Flow Rate 04/22/25 15:35 04/22/25 15:40 04/22/25 15:40 Temperature 98.4 F 98.4 F Pulse Rate 96 H 104 H Respiratory Rate 17 14 Blood Pressure 122/74 Pulse Oximetry 92 93 Oxygen Delivery Method Oximask Oxygen Flow Rate 5 04/22/25 15:45 04/22/25 15:45 04/22/25 15:50 Temperature 98.4 F Pulse Rate 98 H Respiratory Rate 16 Blood Pressure 118/74 112/71 Pulse Oximetry 93 Oxygen Delivery Method Oximask Oxygen Flow Rate 5 04/22/25 15:50 04/22/25 15:55 04/22/25 15:55 Temperature 98.6 F 98.6 F Pulse Rate 104 H 98 H Respiratory Rate 18 17 Blood Pressure 120/72 Pulse Oximetry 93 92 93 Oxygen Delivery Method Oximask Oxygen Flow Rate 3 04/22/25 16:00 04/22/25 16:00 04/22/25 16:05 Temperature 98.6 F Pulse Rate 97 H Respiratory Rate 17 Blood Pressure 124/77 120/76 Pulse Oximetry 95 Oxygen Delivery Method Oxygen Flow Rate 04/22/25 16:05 04/22/25 16:10 04/22/25 16:10 Temperature 98.6 F 98.6 F Pulse Rate 97 H 100 H Respiratory Rate 19 18 Blood Pressure 119/77 Pulse Oximetry 92 94 Oxygen Delivery Method Oxygen Flow Rate 04/22/25 16:15 04/22/25 16:20 04/22/25 16:25 Temperature 98.6 F 98.6 F Pulse Rate 94 H 91 H Respiratory Rate 16 20 Blood Pressure 118/73 Pulse Oximetry 95 96 Oxygen Delivery Method Oxygen Flow Rate 04/22/25 16:25 04/22/25 16:30 04/22/25 16:30 Temperature 98.8 F 98.8 F Pulse Rate 85 84 Respiratory Rate 21 16 Blood Pressure 119/71 Pulse Oximetry 94 93 Oxygen Delivery Method Oxygen Flow Rate 04/22/25 16:35 04/22/25 16:35 04/22/25 16:40 Temperature 98.8 F 98.8 F Pulse Rate 83 91 H Respiratory Rate 12 19 Blood Pressure 117/69 Pulse Oximetry 94 92 Oxygen Delivery Method Oxygen Flow Rate 04/22/25 16:40 04/22/25 16:45 04/22/25 16:45 Temperature 98.8 F Pulse Rate 92 H Respiratory Rate 22 Blood Pressure 121/75 120/75 Pulse Oximetry 91 Oxygen Delivery Method Oxygen Flow Rate 04/22/25 16:50 04/22/25 16:50 04/22/25 16:55 Temperature 98.8 F Pulse Rate 87 Respiratory Rate 13 Blood Pressure 113/70 114/68 Pulse Oximetry 92 Oxygen Delivery Method Oxygen Flow Rate 04/22/25 16:55 04/22/25 17:00 04/22/25 17:00 Temperature 98.8 F 98.8 F Pulse Rate 85 84 Respiratory Rate 13 15 Blood Pressure 114/69 Pulse Oximetry 92 93 Oxygen Delivery Method Oxygen Flow Rate 04/22/25 17:30 Temperature Pulse Rate 77 Respiratory Rate 13 Blood Pressure Pulse Oximetry 96 Oxygen Delivery Method Oximask Oxygen Flow Rate 2 Oxygen Delivery Method Oximask Oxygen Flow Rate 2 Narrative Exam Narrative: Gen: mildly ill appearing male, forehead abrasion, awake and alert, falls asleep easily CV: RRR no m/r/g Pulm: CTA b/l Abd: s approp. tender, non distended Ext: No edema. Objective ECG Impression: NSR, rightward axis Labs 04/22/25 14:24 04/22/25 15:49 Labs: Laboratory Results - last 24 hr 04/22/25 04/22/25 04/22/25 14:24 14:35 15:49 WBC 7.5 RBC 4.94 Hgb 15.2 Hct 44.4 MCV 89.8 MCH 30.6 MCHC 34.1 RDW 13.8 Plt Count 148 L Neut % (Auto) 89.0 H Lymph % (Auto) 8.0 L [place] % (Auto) 1.7 L Eos % (Auto) 0.8 L Baso % (Auto) 0.5 Neut # (Auto) 6700 Lymph # (Auto) 600 L [place] # (Auto) 100 Eos # (Auto) 100 Baso # (Auto) 0 PT 11.7 INR 1.0 APTT 33 Sodium 137 140 Potassium 5.2 H 3.8 D Chloride 99 108 H Carbon Dioxide 22 25 BUN 24 H 24 H Creatinine 1.89 H 1.35 H Estimated GFR 46 L > 60 BUN/Creatinine Ratio 12.7 17.8 Glucose 206 H 72 D Calcium 8.6 7.3 L Total Bilirubin 0.4 AST 93 H ALT 107 H Alkaline Phosphatase 71 Total Creatine Kinase 247 H 272 H Troponin I 0.038 H 0.069 H Total Protein 6.6 Albumin 4.3 Globulin 2.3 Albumin/Globulin Ratio 1.9 U Opiates 300ng/mL cut Negative Ur Oxycodone Screen Positive H Urine Methadone Screen Negative Ur Barbiturates Screen Negative U Tricyclic Antidepress Negative Ur Phencyclidine Scrn Negative Ur Amphetamines Screen Negative U Methamphetamines Scrn Negative Ur MDMA Scrn (Ecstasy) Negative U Benzodiazepines Scrn Positive H Urine Cocaine Screen Negative U Marijuana (THC) Screen Negative Urine pH Normal Urine Specific [place] Normal Ethyl Alcohol < 10 Ur Creatinine Normal Assessment & Plan Assessment & Plan narrative: 1. Presumed accidental opiate overdose with acute respiratory failure with hypoxia and toxic encephalopathy - admit to ICU, given continued grogginess and hypoxia despite now 5 doses of narcan start narcan infusion overnight. - UDS positive for opiates and benzos which are both prescribed to the patient. - avoid opiates, pain control with tylenol and motrin for now. 2. Elevated troponin - presume secondary to compressions performed in the home. - continue to follow until downtrending - EKG reassuring, ruled out PE - ordered TTE given unclear circumstances, though suspect respiratory issue primarily. 3. ZIGGY - Improved with IV fluids, may indicate either dehydration recently or true respiratory arrest. - continue IV fluids - CK is <500, depending on cr trend consider repeating. Code: Full, surrogate is patient's significant other Dispo: admit to ICU for narcan infusion DVT: Lovenox I have utilized all available immediate resources to obtain, update, or review the patient's current medications. Dispo: patient admitted under observation status to the ICU. Anticipate probable discharge home tomorrow once opiates wear off. Additional history obtained via discussions with the ER provider and significant other. These discussions contributed to the creation of the above assessment and plan. I have reviewed patient's presenting documentation, labs, and imaging personally. Time-Based Coding :: [TOTAL MINUTES] spent with patient and on the chart (including review of chart, obtaining history, exam, reviewing outside data, placing orders, documenting exam and treatment plan, and counseling patient) on [DATE].
--- NOTE | 2025-04-22 19:34 | PC.NURSE ---
Pt awake and alert lying in ED stretcher. Sridhar' at bedside. Pt provided with apple juice per request and taking without difficulty. Pt remains connected to cardiac, resp, blood pressure, and pulse ox monitors with alarms on and audible. Call light within reach. Elmo Hugger placed back on pt for complaint of being cold. No other complaints or needs noted at this time.
--- NOTE | 2025-04-22 20:55 | DI.ECHO.S_ITS ---
[facility] +---------+ [facility] : : [id number] : : [place] : : [id number] : : Phone: [phone] Echocardiogram Report + + :Name: JUAN SLOAN Study Date: 04/23/2025 Height: 71 in : :Hospital ReadingLocation: Weight: 210 lb : : Gender: Male BSA: 2.2 m2 : :: 1985 Age: 39 yrs BP: 112/72 mmHg: :Reason For Study: SYNCOPE, ELEVATED TROPONING, POSSIBLE : :RESPRITORY FAILURE : :Ordering Physician: ANNY, : :RULA RADFORD Performed By: Teodora Freeman : :Referring: RULA MCCORMICK : + + Interpretation Summary Sinus bradycardia with heart rate 44-49 bpm. Normal LV size; normal wall thickness. Normal wall motion and LV systolic function. Ejection fraction is 55-60%. Borderline dilated right ventricle with normal RV systolic function. No significant valvular abnormalities. No prior study available for comparison. Procedure: A two-dimensional transthoracic echocardiogram with color flow and Doppler was performed. The study quality was technically adequate. There is no prior echocardiogram noted for this patient. The patient was in sinus bradycardia with heart rates between 43-57 bpm during the exam. Left Ventricle: The left ventricle is normal in size and wall thickness. The ejection fraction is estimated to be 55-60%. Right Ventricle: The right ventricle is at the upper limits of normal in size. The right ventricular systolic function is normal. Atria: The left atrial size is normal. Right atrial size is normal. There is no Doppler evidence for an interatrial shunt. Mitral Valve: The mitral valve leaflets appear to open well. There is trace mitral regurgitation. Aortic Valve: The aortic valve is trileaflet. The aortic valve opens well. There is no aortic valve stenosis. No aortic regurgitation is present. Tricuspid Valve: The tricuspid valve leaflets are thin and pliable. There is trace tricuspid regurgitation. Pulmonary artery pressures cannot be estimated because of the lack of a measurable TR jet velocity but the IVC suggests a CVP of around 3 mmHg. Pulmonic Valve: The pulmonic valve leaflets are thin and pliable; valve motion is normal. There is no pulmonic valvular regurgitation. Great Vessels: The aortic root is normal size. The dimensions of the ascending aorta are normal. The IVC is of normal diameter and collapses greater than 50% with a sniff. This suggests a low right atrial pressure of 3 mm Hg. Pericardium/ Pleura There is no pericardial effusion. There is no pleural effusion. MMode/2D Measurements & Calculations LVIDd: 5.9 cm LVOT diam: 2.3 cm LVIDs: 4.1 cm Ao root diam: 3.7 cm FS: 30.6 % asc Aorta Diam: 3.3 cm EPSS: 0.68 cm Ao Arch Diam (Prox Trans): 3.2 cm IVSd: 1.0 cm LVPWd: 0.97 cm LV lazar. diameter/BSA (cm/m^2): 2.7 LV sys. diameter/BSA (cm/m^2): 1.9 LA A2 area: 19.6 cm2 RA long axis: 4.8 cm LA A4 area: 16.4 cm2 RA area: 17.9 cm2 LA length (vol): 4.9 cm RA vol: 56.5 ml LA vol: 55.5 ml RA : 26.2 ml/m2 LA vol index: 25.8 ml/m2 IVC diam: 1.8 cm RVD1 (basal): 4.1 cm TAPSE: 2.4 cm Doppler Measurements & Calculations Ao V2 max: 121.2 cm/sec LVOT Max Genaro: 102.9 cm/sec Ao V2 mean: 86.8 cm/sec LV V1 max P.2 mmHg Ao max P.9 mmHg LV V1 VTI: 23.5 cm Ao mean P.3 mmHg DELMY(I,D): 3.3 cm2 Ao V2 VTI: 28.7 cm DELMY(V,D): 3.4 cm2 sev ratio: 0.82 DELMY indexed to BSA (cm^2/m^2): 1.5 MV E max genaro: 85.6 cm/sec PA V2 max: 113.8 cm/sec MV A max genaro: 65.2 cm/sec PA V2 mean: 71.8 cm/sec MV E/A: 1.3 PA mean P.3 mmHg Med Peak E' Genaro: 11.7 cm/sec PA pr(Accel): 27.6 mmHg E/E' med: 7.3 Lat Peak E' Genaro: 15.1 cm/sec E/E' lat: 5.7 E/e' average: 6.5 MV dec time: 0.17 sec SV(LVOT): 95.3 ml Electronically signed by: Tiny Gao M.D. on Reading Physician:04/23/2025 09:52 AM
[2025-04-22] MEDS: SODIUM CHLORIDE 0.9% 1,000 ML 100 ML IV (21:37)
[2025-04-22] MEDS: ACETAMINOPHEN 325 MG TABLET 650 MG PO (21:39)
--- NOTE | 2025-04-22 21:51 | PC.NURSE ---
Addendum entered by Gt Landaverde R.N. 04/23/25 05:33: PT REMAINS ON NARCAN GTT AT 0.25 MG OVERNIGHT. REMAINS A/OX3. COMFORTABLE RESTING IN BED. NORMOTHERMIC. HEART RATE DROPPING LOW 40. PER GIRLFRIEND, PT HAS BEEN TOLD HIS HEART DROPS LOW WHILE SLEEPING WELL SOME SLEEP APNEA. ALL CONCERNS ADDRESSED. Original Note: PT ARRIVED TO UNIT AT 2030. BILATERAL ACS. NARCAN GTT RUNNING AT 0.25 MG (62.5 MLS). A/OX3. 96& ON OXY MASK 2L. GIRLFRIEND AT BEDSIDE.
[2025-04-22 22:04] LABS: MRSA (Nasal) PCR NOT DETECTED (Not Detect)
[2025-04-23] VITALS (26 sets, daily range): BP systolic 113–136; BP diastolic 65–74; PULSE 44–74; RESP 14–24; TEMP 36.8–37; O2SAT 91–99
[2025-04-23] MEDS: NALOXONE 2 MG in SODIUM CHLORIDE 0.9% 500 ML 62.5 MG IV (01:56)
[2025-04-23 04:49] LABS: Add Manual Diff / Slide Review NO; Basophils Absolute Auto 0 /uL (0-100); Basophils Percent Auto 0.6 % (0-2); Eosinophils Absolute Auto 100 /uL (0-450); Eosinophils Percent Auto 1.4 % (2-4); Hematocrit 40.8 % (41-53); Hemoglobin 14.3 g/dL (13.5-17.5); Lymphocytes Absolute Auto 900 /uL (1100-4500); Lymphocytes Percent Auto 15.9 % (25-40); Mean Corpuscular Hemoglobin 31.1 PG (26-34); Mean Corpuscular Volume 88.7 fL (80-100); Monocytes Absolute Auto 700 /uL (0-900); Monocytes Percent Auto 11.8 % (3-14); Neutrophils Absolute Auto 4200 /uL (1500-7000); Neutrophils Percent Auto 70.3 % (50-75); Platelet Count 136 X10^3/uL (150-400); Red Cell Distribution Width 13.7 % (11.6-14.8); White Blood Cell Count 5.9 X10^3/uL (4.5-11.0)
[2025-04-23 05:01] LABS: Alanine Aminotransferase 91 IU/L (<50); Albumin 3.8 g/dL (3.5-5.0); Albumin Globulin Ratio 1.7 (1.0-2.8); Alkaline Phosphatase 63 U/L (38-126); Aspartate Aminotransferase 58 IU/L (17-59); BUN Creatinine Ratio 16.2 (6-22); Bilirubin Total 0.6 mg/dL (0.2-1.3); Blood Urea Nitrogen 19 mg/dL (9-20); Calcium 8.6 mg/dL (8.4-10.2); Carbon Dioxide 24 mmol/L (22-32); Chloride 108 mmol/L (98-107); Estimated Glomerular Filt Rate > 60 mL/min (>60); Globulin 2.2 g/dL (1.7-4.1); Glucose 83 mg/dL (70-99); HEMOLYSIS < 15 (0-50); Magnesium 1.9 mg/dL (1.6-2.3); Potassium 4.1 mmol/L (3.4-5.1); Sodium 138 mmol/L (137-145)
--- NOTE | 2025-04-23 07:12 | PC.NURSE ---
ANTONIO, DIRECTOR REQUESTED TO Cecelia UNDERWOOD. YASMINE Rai'Guille.
[2025-04-23] MEDS: SODIUM CHLORIDE 0.9% 1,000 ML 100 ML IV (07:30)
[2025-04-23 08:45] LABS: Troponin I 0.087 ng/mL (0.01-0.034)
[2025-04-23] MEDS: ACETAMINOPHEN 325 MG TABLET 650 MG PO (09:54)
[2025-04-23] MEDS: IBUPROFEN 600 MG TABLET PO (09:54)
[2025-04-23] MEDS: ENOXAPARIN 40 MG/0.4 ML SYRINGE SUBCUT (09:55)
--- NOTE | 2025-04-23 13:27 | CM.DANOTE ---
DCP Assessment Note pt is a 39yo M admitted for overnight for narcan drip due to accidental opiate overdose [facility]CP [facility] and self pay [employer] RE[employer] DEVELOPER reviewed EMR. recent admission for lap rolando. per chart pt was found unresponsive by SO. lives with SO in [place]. patient is part of the [facility] [employer] Program with [employer] and monitored with ankle bracelet. [employer] Manager - [place] Julia Sanchez, ph#[phone]. per ED/Provider note, pt denies intent to harm self, denies recent drug use to hospitalist, told ED doc recent heroin use? per provider, medically cleared to dc today after narcan drip. [employer] RE[employer] DEVELOPER met with pt in room alone. pt denies intent to kill self. pt reports use was accidental/technically took more than prescribed but it was from pain management from recent lap rolando. pt denies SI. pt denies comm resources for drug use. admits hx of opiate abuse. reports does not want INPT tx due to fear of losing job. later per RN, family in room with pt upset about the hospital discharging him, advocates for inpt rehab. [employer] RE[employer]TS DEVELOPER met with pt, fiance, and fiance mom briefly in room. pt continues to deny intent to harm self with drug use. pt reports he was not overdoing it to get high but to manage pain from lap rolando. denies again wanting INPT rehab or comm resources for drug misuse. fiance tearful due to mom yelling in room. pt on phone with fiance dad, fiance and mom talking emotional conversation. pt continues to deny resources/inpt information from this [employer] RE[employer] DEVELOPER. plans to go to [place] if needed for tx needs. P: dc today home. CM team will continue to follow as needed in case any additional DCP needs arise. SHABANA Cheatham Discharge Planning/Care Management CM Discharge Assessment Start: 04/22/25 18:17 Freq: Status: Active Protocol: Document 04/23/25 13:23 SL (Rec: 04/23/25 13:27 Desktop) Discharge Planning Assessment Assigned Discharge SHABANA Figueredo Furnace Charger DPOA/Assigned ELIZABETH Mcmillan Designee Name Advance Directives? No History Provided By Patient,Family Member,Medical Record Prior Living House Arrangements Household Members significant other,children Type of Drives own vehicle transporation used prior to admit Independent with ADL Yes 's Is patient alert and Yes oriented? Barriers to No Discharge Discharge Plan Home Transportation fiance in POV Arrangement Referrals Initiated None needed Review Status In Process Please Provide Date 04/23/25 Initial DC Assessment Was Performed Next Review Type Continued Stay Review
--- NOTE | 2025-04-23 14:12 | PC.NURSE ---
The mother of Corey's girlfriend came to the ICU nurses station demanding to know why we were discharging pt after he tried to kill himself. This nurse told mother that we could not give out any information, if she wanted information to talk to her daughter. Mother stated that he can not go home again this nurse explained that we could not discuss the pt with her. Bea from case management went into pt room to discuss with patient SSI, pt denies all attempts at ending his own life. Bea left room and mother came out and yelled at the staff if something happens it is on you!. Several witnesses to this outburst, pt continues to be appropriate for discharge per Dr. Aguilera, who was updated on occurrences. No further needs at this time.
--- NOTE | 2025-04-23 16:11 | PC.NURSE ---
Patient was up to the bathroom this morning after heath was discontinued by nightshift. Patient voiding without problems. Patient tolerated breakfast, denies n/v, or chest pain. States he doesn't really remember too much about the last day, he is withdrawn but answers questions when asked. Discharge order received and patient and his girlfriend are ready for discharge. See previous note from charge nurse and SW. Discharge instructions reviewed with patient and his girlfriend by float nurse, and bilateral IV's removed intact. Patient had lunch before he left and was ambulating without difficulty. Patient wanted to walk out for discharge, but agreed to have wheelchair out to the car with his girlfriend Mikayne. Patient states he will follow up with the [facility] clinic. Patient escorted out with all his belongings.
--- NOTE | 2025-04-24 06:56 | PC.NURSE ---
Delayed entry for undocumented Narcotic. This RN pulled IV Dilaudid 2mg from [facility] medication room, and administered it to patient when a rapid response was called over intercom, RN left to assist with Rapid response as recorder on code team, then wasted with INFORMATION OFFICER after rapid response had completed and RN was able to resume floor care. This RN remembers scanning medication but doesn't believe he hit the save ICON on the EMAR.
--- NOTE | 2025-04-25 23:34 | PM.DS.1 ---
History of Present Illness History of Present Illness Chief complaint: unresponsive Narrative: This is a 39-year-old male with the past medical history anxiety and recent cholecystectomy who is likely suffering from an opiate overdose. Patient has very little memory recall of today's events. According to his partner who saw him earlier today she found him down, unresponsive, and not breathing. She called EMS and she started CPR. He denied any substance use to me in the ER on my evaluation, only use of prescription opiates. He reported mainly post operative pain in his abdomen, no shortness of breath or chest pain that he could recall. He was given 5 total doses of narcan, 4 with EMS and with worsening O2 requirements another dose in the ER. He is much more alert but still quite groggy, and unable to recall any recent events. In the ER, CT without contrast showed no acute injuries. Asked for CTA given elevated troponin and hypoxia with recent surgery which was negative for PE. Asked given hypoxia and grogginess patient be placed on narcan infusion and admitted to ICU. Discharge Providers Provider Date of admission: 04/22/25 17:39 Discharge Date: 04/23/25 Primary care physician: Jurgen Lerma PA-C Discharge provider: Eric Aguilera DO Summary Hospital Course Discharge Diagnosis: 1. Presumed accidental opiate overdose with acute respiratory failure with hypoxia and toxic encephalopathy 2. Elevated troponin 3. ZIGGY Hospital Course: This is a 39 year old male with recent gallbladder surgery admitted after a likely cardiac arrest. CTA chest was performed and ruled out PE. Given that patient remained encephalopathic and groggy he was kept on a narcan infusion overnight. Narcan was shut off the following day with no continued encephalopathy after. Elevated troponins are suspected to be due to chest compressions started before admission during his respiratory arrest. His troponin ultimately downtrended and echocardiogram was unremarkable. ZIGGY improved with fluids after admission. He was discharged home the following day. Recommended cessation of opiates for pain control, and his pain from surgery was controlled with tylenol while in the hospital. Time Spent with Patient Time spent: Greater than 30 minutes Exam Vital Signs (past 8 hours): Oxygen Delivery Method Oximask Oxygen Flow Rate 0 Narrative Exam Narrative: Gen: awake, alert, no acute distress but distant and quiet CV: RRR no m/r/g Pulm: CTA B/L Abd: S NT ND Ext: no edema Objective Labs 04/23/25 04:07 04/23/25 04:07 [facility] Social History household members: significant other and children Smoking Status: Current some day smoker alcohol intake: never Discharge Plan Discharge Plan Patient Disposition: Home Provider Discharge Comment: You were admitted to the hospital after an opiate overdose. The ultrasound of your heart appeared normal. Please stop any oxycodone. Try to limit clonazepam as much as possible at home. Recommend tylenol and motrin only for pain control after your gallbladder surgery. Discharge orders & Medications Prescriptions: Continued clonazepam 2 mg tablet 2 mg PO DIRECTED sertraline 50 mg tablet 50 mg PO DAILY Follow up/Referrals: Jurgen Lerma PA-C [Primary Care Provider, Medical] Diet/Activity/Treatments Diet: Diet as Tolerated and Regular Activity: As tolerated, follow post op instructions from surgeon. Visit Report/Discharge Packet Instructions: DI for Prescription Opioid Use, Naloxone for Opiate Overdose - [facility] Stand Alone Forms: Patient Portal/API, Stroke Signs & Symptoms, Naloxone Standing Order [facility] Discharge Data Primary Care Provider: Jurgen Lerma Attending Provider: Eric Aguilera Admit Date/Time: 04/22/25 17:39 Quality VTE Deep Vein Thrombosis/Pulmonary Embolism Present on Admission: No
== END 2025-04-23 15:00 | disposition home or self-care (01) ==
LOC: ED 16:51 → ICU 04-23 10:08 → AC 04-23 12:40 → ICU 04-23 12:40
PROVIDERS: Admitting Provider Internal Medicine; Emergency Provider Emergency Medicine; PCP Physician Assistant; Referring Provider Emergency Medicine; Visit Provider Internal Medicine
DX: T40.601A Poisoning by unspecified narcotics, accidental (unintentional), initial encounter (principal); G92.9 Unspecified toxic encephalopathy; J96.01 Acute respiratory failure with hypoxia; F17.200 Nicotine dependence, unspecified, uncomplicated; G89.18 Other acute postprocedural pain; R10.9 Unspecified abdominal pain; R79.89 Other specified abnormal findings of blood chemistry; N17.9 Acute kidney failure, unspecified; T68.XXXA Hypothermia, initial encounter
CPT/HCPCS: 36415; 70450; 71275; 72125; 74177; 80048; 80053; 80305; 80320; 82550; 83735; 84484; 85025; 85610; 85730; 87040; 87797; 93005; 93306; 96365; 96366; 96367; 96372; 96376; 99285; 99291; G0378; J0131; J1650; J2310; Q9967

== ENCOUNTER 2025-04-27 09:50 | Emergency (ER) | payer OTHER, SELFPAY ==
[2025-04-22 18:17] VITALS: BMI 29.2
[2025-04-27 09:49] VITALS: BP 132/86; PULSE 99; TEMP 36.4; O2SAT 101; BMI 32.8
[2025-04-27 09:55] VITALS: PULSE 100; RESP 20; O2SAT 90
[2025-04-27 09:57] VITALS: BP 132/86; PULSE 98; RESP 16; O2SAT 97
[2025-04-27 10:00] VITALS: BP 131/80; PULSE 96; RESP 16; O2SAT 97
--- NOTE | 2025-04-27 10:01 | DI.RAD.S_ITS ---
PROCEDURE: XR CHEST 1V INDICATIONS: Near syncope TECHNIQUE: One view of the chest was acquired. COMPARISON: [facility], CT, CT ANGIO CHEST PE PROTOCOL, 04/22/2025, 16:56. [facility], CT, CT HEAD/BRAIN WO CON, 04/27/2025, 10:24. [facility], CR, XR CHEST 1V, 04/21/2025, 18:47. FINDINGS: Surgical changes and devices: None. Lungs and pleura: Generalized interstitial prominence can be seen. Low lung volumes are noted. This causes a crowded appearance to the lung markings and limits evaluation. No pneumothorax or pleural effusions are seen. Mediastinum: Mediastinal contours appear normal. Heart size is normal. Bones and chest wall: No suspicious bony lesions. Overlying soft tissues appear unremarkable. IMPRESSION: Low lung volumes with generalized interstitial prominence. Please consider artifact versus pulmonary edema. Dictated by: Nicola Skinner M.D. on 04/27/2025 at 9:49 Approved by: Nicola Skinner M.D. on 04/27/2025 at 9:50
--- NOTE | 2025-04-27 10:01 | EKG_ITS ---
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
[2025-04-27] MEDS: SODIUM CHLORIDE 0.9% 1,000 ML 150 ML IV (10:10)
--- NOTE | 2025-04-27 10:20 | DI.CT.S_ITS ---
PROCEDURE: CT HEAD/BRAIN WO CON INDICATIONS: Post CTR TECHNIQUE: Noncontrast 4.5 mm thick angled axial sections acquired from the foramen magnum to the vertex, with coronal and sagittal reformats. For radiation dose reduction, the following was used: automated exposure control, adjustment of mA and/or kV according to patient size. COMPARISON: [facility], CT, CT ANGIO CHEST PE PROTOCOL, 04/22/2025, 16:56. [facility], CR, XR CHEST 1V, 04/27/2025, 10:23. [facility], CT, CT HEAD/BRAIN WO CON, 04/22/2025, 14:01. FINDINGS: Image quality: Diagnostic. CSF spaces: Basal cisterns are patent. No extra-axial fluid collections. Ventricles are normal in size and shape. Brain: No midline shift. No intracranial mass effect or hemorrhage. Bowles- white matter interface is normal. Skull and face: Mild soft tissue thickening can be seen in the forehead. No associated calvarial fracture can be seen. Calvarium and visualized facial bones are intact, without suspicious lesions. Sinuses: Visualized sinuses and mastoids are clear. IMPRESSION: No acute intracranial hemorrhage is seen. No acute intracranial pathology. If it would be helpful for clinical management decision making, please consider a dedicated follow-up brain MRI for further evaluation (assuming that there is no contraindication). Dictated by: Nicola Skinner M.D. on 04/27/2025 at 9:44 Approved by: Nicola Skinner M.D. on 04/27/2025 at 9:46
--- NOTE | 2025-04-27 10:24 | ED_ITS ---
HPI - Altered Mental Status General Chief Complaint: Altered Mental Status Stated Complaint: Unresponsive Source: EMS Mode of arrival: EMS History of Present Illness HPI narrative: 39 years old male with history of anxiety came in today he was fell on the floor breathing shallowly by the family member then he was having CPR by the family member to the phone with dispatch. The ambulance got to the scene the patient was having agonal breathing so he was put on oxygen and was given Narcan 2 mg intranasal and mild mg IV. He got back his consciousness and breathing spontaneously. He said he could not remember what happened. He was at home and plan to do an exercise and after that he could not remember. He reported little bit dizziness this morning. He currently complain of headache but denied any chest pain, shortness of breath, nausea vomiting, numbness weakness on his arms or legs, neck pain, back pain, diarrhea, urine problem. He was in our ER for drug overdose on 04/22/2025. Related Data Home Medications ?Medication ?Instructions ?Recorded ?Confirmed clonazepam 2 mg tablet 2 mg PO DIRECTED 04/08/25 04/26/25 sertraline 50 mg tablet 50 mg PO DAILY 04/08/2504/14 Allergies Allergy/AdvReac Type Severity Reaction Status Date / Time penicillin G Allergy Unverified 04/27/25 09:58 Penicillins AdvReac Hives Verified 04/26/25 09:25 Review of Systems Constitutional Constitutional: Reports chills, Reports headache(s) and Denies weakness Eyes Eyes: Denies change in vision and Denies diplopia ENT Ears, Nose, Mouth, and Throat: Reports dizziness, Denies facial pain, Reports headache(s) and Denies neck pain Cardiovascular Cardiovascular: Denies chest pain, Denies irregular heart rhythm, Denies dyspnea and Denies dyspnea on exertion Respiratory Respiratory: Denies cough, Denies hemoptysis, Denies dyspnea, Denies dyspnea on exertion and Denies wheezing Gastrointestinal Gastrointestinal: Denies abdominal pain, Denies nausea and Denies vomiting Genitourinary Genitourinary: Denies difficulty urinating Musculoskeletal Musculoskeletal: Denies back pain, Denies neck pain and Denies numbness Neurologic Neurologic: Denies abnormal speech, Reports dizziness, Reports headache(s), Denies numbness and Denies weakness Allergic/Immunologic Allergic/Immunologic: Denies wheezing Patient History Social History household members: significant other and children Smoking Status: Former smoker alcohol intake: never Smoking Status: Former smoker Exam Initial Vital Signs Initial Vital Signs: Vital Signs Temperature 97.5 F L 04/27/25 09:49 Pulse Rate 99 H 04/27/25 09:49 Blood Pressure 132/86 04/27/25 09:49 Pulse Oximetry 101 H 04/27/25 09:49 Oxygen Delivery Method Room Air 04/27/25 09:49 Const General: cooperative and No acute distress HENMT HENMT Other: Abrasion on her forehead. Eyes General: Yes appearance normal, both eyes and all related structures Eyelids: eyelids normal Pupils: PERRL EOM: EOM intact bilaterally Neck Neck: normal visual inspection Chest Chest: normal inspection of the chest and normal palpation of entire chest wall Resp Effort & Inspection: normal respiratory effort, able to speak in complete sentences and no cough Auscultation: clear to auscultation bilaterally and no wheezes Cardio Rate: regular rate Rhythm: regular rhythm Heart Sounds: S1 normal, S2 normal and no murmurs GI Inspection: normal to inspection Palpation: soft and No tender Back/Spine/Pelvis Back: normal to inspection Cervical Spine: No cervical spinal tenderness and No cervical ROM abnormal Thoracic/Lumbar Spine: No thoracic spinal tenderness and No lumbar spinal tenderness Neuro General: patient alert, patient awake and patient oriented x3 Cranial Nerves: CN's II-XI intact bilaterally and EOM intact bilaterally Speech: speech normal Motor: muscle tone normal throughout Sensory Exam: no sensory deficits noted Extrem General: No pedal edema Course Course Course Narrative: I explained the patient the lab results. His urine tests, D-dimer, magnesium were pending and IV normal saline bolus was pending. I discussed the risks and benefit of continue staying in the hospital but the patient decided to sign against medical advice even after it could be , blood clot in the lung, heart arrhythmia. Orders Ordered: ED Orders 04/27/25 10:00 Urine Drug Screen, Rapid Stat 04/27/25 10:01 XR chest 1V Stat EKG-12 Lead Stat 04/27/25 10:16 Complete Blood Count AUTO DIFF Stat Comprehensive Metabolic Panel Stat D Dimer Stat Ethanol (ETOH) Stat Lactate (Lactic Acid) Stat Lipase Stat Magnesium Stat NT-proBNP (BNP-Adult 18+) Stat Prothrombin Time INR Stat Troponin & CK Cardiac Panel Stat 04/27/25 10:20 CT head/brain wo con Stat Discontinued Medications Aspirin (Aspirin 81 Mg Chew Tab) 324 mg PO NOW ONE Stop: 04/27/25 10:01 Last Admin: 04/27/25 11:29 Dose: Not Given Documented By: MPO Sodium Chloride (Normal Saline 0.9%) 1,000 mls @ 150 mls/hr IV CONT RAHEEM Last Admin: 04/27/25 10:10 Dose: 150 mls/hr Documented By: MPO Sodium Chloride (Normal Saline 0.9%) 1,000 mls @ 1,000 mls/hr IV BOLUS ONE Stop: 04/27/25 12:24 Vital Signs Vital signs: Vital Signs - 8 hr 04/27/25 09:49 04/27/25 09:55 04/27/25 09:57 Temperature 97.5 F L Pulse Rate 99 H 100 H Respiratory Rate 20 Blood Pressure 132/86 132/86 Pulse Oximetry 101 H 90 L Oxygen Delivery Method Room Air Nasal Cannula Oxygen Flow Rate 2 04/27/25 09:57 04/27/25 10:00 04/27/25 10:00 Temperature Pulse Rate 98 H 96 H Respiratory Rate 16 16 Blood Pressure 131/80 Pulse Oximetry 97 97 Oxygen Delivery Method Oxygen Flow Rate 04/27/25 11:52 Temperature Pulse Rate 102 H Respiratory Rate Blood Pressure 122/81 Pulse Oximetry 94 Oxygen Delivery Method Oxygen Flow Rate MDM - Altered Mental Status Lab Data 04/27/25 10:16 04/27/25 10:16 Labs: Lab Results 04/27/25 Range/Units 10:16 WBC 4.2 L (4.5-11.0) X10^3/uL RBC 5.10 (4.5-5.9) X10^6/uL Hgb 15.5 (13.5-17.5) g/dL Hct 45.9 (41-53) % MCV 90.0 (80-100) fL MCH 30.5 (26-34) PG MCHC 33.8 (30-36) % RDW 13.8 (11.6-14.8) % Plt Count 147 L (150-400) X10^3/uL Neut % (Auto) 75.8 H (50-75) % Lymph % (Auto) 17.5 L (25-40) % Gordon % (Auto) 2.6 L (3-14) % Eos % (Auto) 3.3 (2-4) % Baso % (Auto) 0.8 (0-2) % Neut # (Auto) 3200 (4623-7904) /uL Lymph # (Auto) 700 L (2165-4752) /uL Gordon # (Auto) 100 (0-900) /uL Eos # (Auto) 100 (0-450) /uL Baso # (Auto) 0 (0-100) /uL PT 10.7 (9.4-12.5) SECONDS INR 0.9 (0.9-1.3) D-Dimer 2373 H (<500) ng/ml Sodium 137 (137-145) mmol/L Potassium 4.3 (3.4-5.1) mmol/L Chloride 100 (98-107) mmol/L Carbon Dioxide 23 (22-32) mmol/L BUN 23 H (9-20) mg/dL Creatinine 1.50 H (0.66-1.25) mg/dL Estimated GFR > 60 (>60) mL/min BUN/Creatinine Ratio 15.3 (6-22) Glucose 205 H D (70-99) mg/dL Lactate 4.6 H* (0.7-2.1) mmol/L Calcium 8.9 (8.4-10.2) mg/dL Magnesium 2.1 (1.6-2.3) mg/dL Total Bilirubin 0.7 (0.2-1.3) mg/dL AST 170 H (17-59) IU/L ALT 242 H (<50) IU/L Alkaline Phosphatase 86 (38-126) U/L Total Creatine Kinase 254 H (55-170) U/L Troponin I 0.016 (0.01-0.034) ng/mL NT-Pro-B Natriuret Pep < 20 (<125) pg/mL Total Protein 7.4 (6.3-8.2) g/dL Albumin 4.7 (3.5-5.0) g/dL Globulin 2.7 (1.7-4.1) g/dL Albumin/Globulin Ratio 1.7 (1.0-2.8) Lipase 272 D (23-300) U/L Ethyl Alcohol < 10 (<10) mg/dL Imaging Data CT scan - head: Radiologist's Impression: [address] [address] [address] Scan Report Signed Patient: Corey Bean MR#: [id number] : 1985 Acct:[id number] Age/Sex: 39 / M Date of Service: 04/27/25 Loc: ED Accession Number: [id number] Procedure: CT head/brain wo con Ordering Provider: Yoanna Sotelo MD PROCEDURE: CT HEAD/BRAIN WO CON INDICATIONS: Post CTR TECHNIQUE: Noncontrast 4.5 mm thick angled axial sections acquired from the foramen magnum to the vertex, with coronal and sagittal reformats. For radiation dose reduction, the following was used: automated exposure control, adjustment of mA and/or kV according to patient size. COMPARISON: [facility], CT, CT ANGIO CHEST PE PROTOCOL, 04/22/2025, 16:56. [facility], CR, XR CHEST 1V, 04/27/2025, 10:23. [facility], CT, CT HEAD/BRAIN WO CON, 04/22/2025, 14:01. FINDINGS: Image quality: Diagnostic. CSF spaces: Basal cisterns are patent. No extra-axial fluid collections. Ventricles are normal in size and shape. Brain: No midline shift. No intracranial mass effect or hemorrhage. Bowles- white matter interface is normal. Skull and face: Mild soft tissue thickening can be seen in the forehead. No associated calvarial fracture can be seen. Calvarium and visualized facial bones are intact, without suspicious lesions. Sinuses: Visualized sinuses and mastoids are clear. IMPRESSION: No acute intracranial hemorrhage is seen. No acute intracranial pathology. If it would be helpful for clinical management decision making, please consider a dedicated follow-up brain MRI for further evaluation (assuming that there is no contraindication). Dictated by: Nicola Skinner M.D. on 04/27/2025 at 9:44 Approved by: Nicola Skinner M.D. on 04/27/2025 at 9:46 Chest x-ray: Radiologist's Impression: PROCEDURE: XR CHEST 1V INDICATIONS: Near syncope TECHNIQUE: One view of the chest was acquired. COMPARISON: [facility], CT, CT ANGIO CHEST PE PROTOCOL, 04/22/2025, 16:56. [facility], CT, CT HEAD/BRAIN WO CON, 04/27/2025, 10:24. [facility], CR, XR CHEST 1V, 04/21/2025, 18:47. FINDINGS: Surgical changes and devices: None. Lungs and pleura: Generalized interstitial prominence can be seen. Low lung volumes are noted. This causes a crowded appearance to the lung markings and limits evaluation. No pneumothorax or pleural effusions are seen. Mediastinum: Mediastinal contours appear normal. Heart size is normal. Bones and chest wall: No suspicious bony lesions. Overlying soft tissues appear unremarkable. IMPRESSION: Low lung volumes with generalized interstitial prominence. Please consider artifact versus pulmonary edema. ECG Data Interpretation: EKG shows normal sinus rhythm rate 94 beats per minute. Inverted T-wave in V1 to V5 without ST elevation or ST depression. QTC 497 millisecond. MDM Narrative Medical decision making narrative: I explained his mother the patient the lab results. His vital signs had been stable in the ED. He presented with altered mental status and was found with agonal breathing at home so the family members did do CPR. Of the prominent go to the scene he was given Narcan 2 mg intranasal and 1 mg IV then he came back his consciousness. He reported dizziness and headache but otherwise denied any chest pain, shortness of breath, abdominal pain, back pain, neck pain. He did not roll exam was intact with no focal deficit. His lungs are clear. His CV exam, abdominal exam were normal. No midline C-spine, thoracolumbar spine tenderness on palpation all stable. His neck was supple. His pupil was equal round reactive to light both eyes. My differential diagnosis could be [place], cardiac arrhythmia, pneumothorax, stroke, intracranial bleeding, sepsis. CBC show mildly decreased WBC and platelets consistent with a baseline otherwise normal hemoglobin. His CMP shows BUN 23 and creatinine 1.5, AST 170, ALT 242 otherwise normal CMP. He has had mild elevation in LFT. His CK was 254. His troponin was negative. His blood sugar was 205. He had lactic acid 4.6 his lipase was normal at 272. His alcohol was negative. Critical Care Time Critical Care Time Critical Care Time: Yes Total Critical Care Time: 40 Attestation: I spent about 40 minutes for critical care time. Discharge Plan Departure Patient Disposition: Left Against Medical Advice Clinical Impression: Altered mental status, Syncope and collapse Prescriptions: No Action clonazepam 2 mg tablet 2 mg PO DIRECTED sertraline 50 mg tablet 50 mg PO DAILY Referrals: Jurgen Lerma PA-C [Primary Care Provider, Medical] Stand Alone Forms: Patient Portal/API, Against Med. Advice (Slovak)
[2025-04-27 10:36] LABS: INR 0.9 (0.9-1.3); Prothrombin Time 10.7 SECONDS (9.4-12.5)
[2025-04-27 10:40] LABS: Alanine Aminotransferase 242 IU/L (<50); Albumin 4.7 g/dL (3.5-5.0); Albumin Globulin Ratio 1.7 (1.0-2.8); Alkaline Phosphatase 86 U/L (38-126); Aspartate Aminotransferase 170 IU/L (17-59); BUN Creatinine Ratio 15.3 (6-22); Bilirubin Total 0.7 mg/dL (0.2-1.3); Blood Urea Nitrogen 23 mg/dL (9-20); Calcium 8.9 mg/dL (8.4-10.2); Carbon Dioxide 23 mmol/L (22-32); Chloride 100 mmol/L (98-107); Creatine Kinase 254 U/L (55-170); Estimated Glomerular Filt Rate > 60 mL/min (>60); Globulin 2.7 g/dL (1.7-4.1); Glucose 205 mg/dL (70-99); HEMOLYSIS < 15 (0-50); Lactate (Lactic Acid) 4.6 mmol/L (0.7-2.1); Lipase 272 U/L (23-300); Potassium 4.3 mmol/L (3.4-5.1); Sodium 137 mmol/L (137-145); Total Protein 7.4 g/dL (6.3-8.2)
[2025-04-27 10:41] LABS: Ethanol (ETOH) < 10 mg/dL (<10)
[2025-04-27 10:42] LABS: Add Manual Diff / Slide Review NO; Basophils Absolute Auto 0 /uL (0-100); Basophils Percent Auto 0.8 % (0-2); Eosinophils Absolute Auto 100 /uL (0-450); Eosinophils Percent Auto 3.3 % (2-4); Hematocrit 45.9 % (41-53); Hemoglobin 15.5 g/dL (13.5-17.5); Lymphocytes Absolute Auto 700 /uL (1100-4500); Lymphocytes Percent Auto 17.5 % (25-40); Mean Corpuscular HGB Conc 33.8 % (30-36); Mean Corpuscular Hemoglobin 30.5 PG (26-34); Monocytes Absolute Auto 100 /uL (0-900); Monocytes Percent Auto 2.6 % (3-14); Neutrophils Absolute Auto 3200 /uL (1500-7000); Neutrophils Percent Auto 75.8 % (50-75); Platelet Count 147 X10^3/uL (150-400); Red Cell Distribution Width 13.8 % (11.6-14.8); White Blood Cell Count 4.2 X10^3/uL (4.5-11.0)
[2025-04-27 10:49] LABS: NT-proBNP (BNP-Adult 18+) < 20 pg/mL (<125)
[2025-04-27 10:51] LABS: Troponin I 0.016 ng/mL (0.01-0.034)
--- NOTE | 2025-04-27 10:52 | PC.NURSE ---
Pt arrived to ED via EMS after responding to pt found down and unresponsive. Pt's girlfriend called 911 and began cpr with dispatch over the phone. EMS reports that upon arrival to scene pt skin blue and agonal breathing. Pt given total of 3mg narcan, 2 intranasal doses and 1 IV dose in field and pt arrived to ED a&Ox4. Pt states that he does not remember what exactly happened, but he took his medication and went to walk on treadmill. He woke up and EMS was surrounding him. Pt admits to taking more of his rx oxycodone 10mg tabs, but took his normal doses of clonezepam and zoloft. Over the past several months, pt has been taking prescribed optiate pain medications following melanoma surgery x2 and gall bladder surgery and pt has been seen in ED several times for pain-related issues. Girlfriend called police after pt arrived to ED due to safety concerns. [facility]'s deputy arrived to ED and stated that if pt did not want to speak with officers, then they would leave and they did not posses a warrant or believe that any illegal activity occured. Pt declined to speak with law enforcement at this time.
[2025-04-27 11:45] LABS: Magnesium 2.1 mg/dL (1.6-2.3)
[2025-04-27 11:52] VITALS: BP 122/81; PULSE 102; O2SAT 94
[2025-04-27 11:59] LABS: D Dimer 2373 ng/ml (<500)
[2025-04-27 12:00] LABS: Reflexed Lactate in 2 Hours Y
--- NOTE | 2025-04-30 13:19 | PC.NURSE ---
Spoke with Dr. Sotelo. Requested we call patient to see how he is feeling. d-dimer was elevated . Dr. Sotelo wanted to let patient know that he is able to return to the hospital for some further imaging. I called and left a message on the patients phone requesting that he could call back to update us on his condition and how he is feeling.
== END 2025-04-27 11:59 | disposition left against medical advice (07) ==
PROVIDERS: Emergency Provider Emergency Medicine; PCP Physician Assistant
DX: R40.4 Transient alteration of awareness (principal); R55 Syncope and collapse
CPT/HCPCS: 70450; 71045; 80053; 80320; 82550; 83605; 83690; 83735; 83880; 84484; 85025; 85379; 85610; 93005; 99284

== ENCOUNTER → 2025-09-11 19:02 | Outpatient (CLI) | payer BC, OTHER, SELFPAY ==
[2025-04-22 18:17] VITALS: BMI 29.2
--- NOTE | 2025-09-11 19:05 | DI.MRI.S_ITS ---
PROCEDURE: MR BRAIN (PITUITARY) O CON INDICATIONS: testicular hypofunction TECHNIQUE: Noncontrast sagittal and axial FLAIR, axial gradient echo, axial diffusion and ADC through the brain. Thin-slice sagittal and coronal T1 spin echo, coronal T2 fast spin echo through the pituitary. After the administration contrast, optional dynamic coronal T1 spin echo, thin-slice coronal and sagittal T1 spin echo images through the pituitary fossa; axial and coronal and sagittal T1 spin echo with fat saturation through the brain. COMPARISON: [facility], CT, CT HEAD/BRAIN WO CON, 04/27/2025, 10:24. FINDINGS: Image quality: This examination is limited by involuntary motion artifact. Pituitary Gland: The pituitary gland demonstrates normal signal and bulk. On the postcontrast imaging, no masses or abnormally enhancing areas are seen. The pituitary stalk and infundibulum have an unremarkable appearance. A normal appearing pituitary bright spot is seen posteriorly on the precontrast sagittal T1-weighted images. The optic chiasm and the ventral forebrain have an unremarkable appearance. CSF Spaces: Ventricles are normal in size and shape. Basal cisterns are patent. No extra-axial fluid collections. Brain: No intracranial bleeds or mass effects. No abnormal intracranial enhancement. Bowles-white matter interface is intact. Diffusion weighted images demonstrate no acute ischemic insults. Brainstem is normal. Normal intravascular flow voids are present. Skull and face: Calvarial marrow is normal in signal. Orbits appear normal. Sinuses: Moderate mucosal thickening can be seen within the right maxillary sinus. Milder mucosal thickening can be seen elsewhere within the paranasal sinuses. No abnormal fluid is seen within the mastoid air cells. IMPRESSION: No imaging explanation is found for this patient's presenting symptoms. Normal appearing pituitary, without masses or abnormal enhancement. Dictated by: Nicola Skinner M.D. on 09/12/2025 at 12:03 Approved by: Nicola Skinner M.D. on 09/12/2025 at 12:05
== END ==
LOC: MRI 19:04
PROVIDERS: PCP Physician Assistant; Referring Provider Physician Assistant; Visit Provider Physician Assistant
DX: E29.1 Testicular hypofunction (principal)
CPT/HCPCS: 70553; A9579